=== PATIENT | female | born 1945 | race Caucasian/White ===

== ENCOUNTER 2022-10-07 11:09 | Emergency (ER) | payer MEDICARE, SELFPAY ==
[2022-10-07 11:16] VITALS: BP 160/98; PULSE 102; RESP 18; TEMP 36.4; O2SAT 98; BMI 28.2
--- NOTE | 2022-10-07 11:27 | ED_ITS ---
HPI - Extremity Injury (Upper) General Chief Complaint: Extremity Injury, Upper Stated Complaint: FALL UPPER EXTREMITY INJURY Time Seen by Provider: 10/07/22 11:20 Source: patient Mode of arrival: walk-in Limitations: no limitations History of Present Illness HPI narrative: 77 old female presents with left-sided neck pain for the past 3 days. She states that she fell out of bed and hit the left side of her head on the wall. She is not sure why she fell out of bed. She states that her pain started later in the day and she did go to [facility] today in the [facility] evaluated her out in the waiting room and told her that she needed to come to the ER. She is complaining of left-sided neck and trapezius pain. She has been using lidocaine patches. Denies BLE/BUE swelling, temp or sensation changes. Denies dizziness, headache, vision changes, n/v, SOB or CP Related Data Home Medications Medication Instructions Recorded Confirmed hydrochlorothiazide 25 mg tablet 25 mg PO DAILY 10/07/22 10/07/22 latanoprost 0.005 % eye drops 1 drp ophthalmic (eye) QPM 10/07/22 10/07/22 prednisolone acetate 1 % eye 1 drp ophthalmic (eye) BID 10/07/22 10/07/22 drops,suspension venlafaxine 150 mg 150 mg PO DAILY 10/07/22 10/07/22 capsule,extended release 24 hr venlafaxine 75 mg capsule,extended 75 mg PO DAILY 10/07/22 10/07/22 release 24 hr verapamil 180 mg 24 hr 180 mg PO DAILY 10/07/22 10/07/22 capsule,extended release Previous Rx's Medication Instructions Recorded methocarbamol 750 mg tablet 750 mg PO Q8H PRN strain 5 days 10/07/22 #15 tabs Allergies Allergy/AdvReac Type Severity Reaction Status Date / Time No Known Drug Allergies Allergy Verified 10/07/22 11:16 Review of Systems ROS Status of ROS 10 or more systems reviewed and unremarkable except as noted in history and below Exam Narrative Exam Narrative: General: A&Ox3, no distress, talking in full an complete sentences skin: warm, dry, intact head: normocephalic, atraumatic eyes: EOMI nose: nares patent neck: supple, trachea midline, no vertebral tenderness, tender to left para spinal cervical muscles and left trapezius respiratory: non-labored extremities: FROM x 4, strength +5/5 spine: normal ROM, no step offs neuro: A&Ox3 psych: appropriate mood and affect, cooperative Constitutional Vital Signs, click to edit/add: Last Vital Signs Temp 97.6 F 10/07/22 11:16 Pulse 102 H 10/07/22 11:16 Resp 18 10/07/22 11:16 BP 160/98 H 10/07/22 11:16 Pulse Ox 98 10/07/22 11:16 O2 Del Method Room Air 10/07/22 11:16 Course Vital Signs Vital signs: Vital Signs Temperature 97.6 F 10/07/22 11:16 Pulse Rate 102 H 10/07/22 11:16 Respiratory Rate 18 10/07/22 11:16 Blood Pressure 160/98 H 10/07/22 11:16 Pulse Oximetry 98 10/07/22 11:16 Oxygen Delivery Method Room Air 10/07/22 11:16 Temperature 97.6 F 10/07/22 11:16 Pulse Rate 102 H 10/07/22 11:16 Respiratory Rate 18 10/07/22 11:16 Blood Pressure 160/98 H 10/07/22 11:16 Pulse Oximetry 98 10/07/22 11:16 Oxygen Delivery Method Room Air 10/07/22 11:16 MDM - Extremity Injury (Upper) MDM Narrative Medical decision making narrative: I did offer imaging to the patient, but she states that she does not believe anything is broken in her neck and just wishes to be treated for the pain. She does not have any vertebral tenderness and negative Nexus criteria or Beaver C-spine rule and she will be medicated with Toradol and given a prescription for Robaxin follow-up with family doctor. F/u with PCP. afebrile, not tachycardic, not hypoxic, non toxic appearing and ambulating at baseline and hemodynamically stable to be d/c. answered all questions. pt in agreement with tx. educated when to return to ER. Discharge Plan Discharge Chief Complaint: Extremity Injury, Upper Clinical Impression: Strain of cervical portion of left trapezius muscle Accidental fall from bed Qualifiers: Encounter type: initial encounter Qualified Code(s): W06.XXXA - Fall from bed, initial encounter Patient Disposition: Home, Self-Care Time of Disposition Decision: 11:28 Condition: Good Mode of Transportation: Private Vehicle Prescriptions / Home Meds: New methocarbamol 750 mg tablet 750 mg PO Q8H PRN (Reason: strain) 5 Days Qty: 15 0RF No Action hydrochlorothiazide 25 mg tablet 25 mg PO DAILY latanoprost 0.005 % drops 1 drp OPHTHALMIC (EYE) QPM prednisolone acetate 1 % drops,suspension 1 drp OPHTHALMIC (EYE) BID venlafaxine 150 mg capsule,extended release 24hr 150 mg PO DAILY venlafaxine 75 mg capsule,extended release 24hr 75 mg PO DAILY verapamil 180 mg capsule,ext rel. pellets 24 hr 180 mg PO DAILY Instructions: Cervical Strain (ED) Stand Alone Forms: Portal Instructions Referrals: Shaikh Mcmillan MD [Primary Care Provider] - 1 week
[2022-10-07] MEDS: KETOROLAC TROMETHAMINE 30 MG/ML VIAL 15 MG IM (11:37)
== END 2022-10-07 11:42 | disposition home or self-care (01) ==
PROVIDERS: Emergency Provider Emergency Medicine; PCP Internal Medicine
DX: S16.1XXA Strain of muscle, fascia and tendon at neck level, initial encounter (principal); W06.XXXA Fall from bed, initial encounter; Z79.899 Other long term (current) drug therapy
CPT/HCPCS: 96372; 99284

== ENCOUNTER 2022-10-08 12:06 | Outpatient (OUT) | payer MEDICARE, SELFPAY ==
--- NOTE | 2022-10-08 12:12 | XR_ITS ---
[address] [address] Patient Name: USMAN LING MRN: [id number] date: 1945 Sex: F Assigned Patient Location: [facility] Current Patient Location: [facility] Accession/Order Number: [id number] Exam Date: 10/08/2022 12:18 Report Date: 10/08/2022 13:09 At the request of: SHAIKH CASSANDRA Procedure: XR shoulder LT min 2V EXAM: XR shoulder LT min 2V HISTORY: Left shoulder pain M25.512 COMPARISON: None. TECHNIQUE: 3 views FINDINGS: No acute fracture or dislocation. Mild degenerative changes of acromioclavicular joint. Unremarkable soft tissues. XR/XR shoulder LT min 2V IMPRESSION: Degenerative changes as above. Electronically authenticated by: EDGAR CISNEROS Date: 10/08/2022 13:09
--- NOTE | 2022-10-08 12:12 | XR_ITS ---
[address] [address] Patient Name: USMAN LING MRN: [id number] date: 1945 Sex: F Assigned Patient Location: [facility] Current Patient Location: [facility] Accession/Order Number: [id number] Exam Date: 10/08/2022 12:18 Report Date: 10/08/2022 13:00 At the request of: SHAIKH CASSANDRA Procedure: XR cervical spine 2-3V EXAM: XR cervical spine 2-3V HISTORY: Neck pain M54.2 COMPARISON: None. TECHNIQUE: 2 views Findings/impression: Mild reversal of cervical spine lordosis. Vertebral body heights. Multilevel endplate degenerative changes, anterior spurring, disc disease of C3-C6. No acute fracture. Unremarkable soft tissues. Electronically authenticated by: EDGAR CISNEROS Date: 10/08/2022 13:00
== END 2022-10-08 12:07 | disposition home or self-care (01) ==
PROVIDERS: PCP Internal Medicine; Visit Provider Internal Medicine
DX: M54.2 Cervicalgia (principal); M25.512 Pain in left shoulder
CPT/HCPCS: 72040; 73030

== ENCOUNTER 2022-11-08 14:21 | Outpatient (OUT) | payer MEDICARE, SELFPAY | END 2022-11-08 14:22 | disposition home or self-care (01) | LOC: PST 14:21 | PROVIDERS: PCP Internal Medicine; Visit Provider Urology | DX: Z01.818 Encounter for other preprocedural examination (principal); R31.9 Hematuria, unspecified; N35.92 Unspecified urethral stricture, female; I10 Essential (primary) hypertension; F32.A Depression, unspecified; F41.9 Anxiety disorder, unspecified ==

== ENCOUNTER 2022-11-11 07:49 | Day surgery (SDC) | payer MEDICARE, SELFPAY ==
[2022-11-11 08:34] VITALS: BP 137/74; PULSE 84; RESP 18; O2SAT 98
[2022-11-11 08:37] VITALS: BP 140/73; PULSE 78; RESP 18; O2SAT 99
--- NOTE | 2022-11-11 08:54 | P.URON_ITS ---
Urology Surgery Operative Note Operative Note Procedure Date: 11/11/22 Time Out Performed: yes Pre-op Diagnosis: urethral stenosis; recurrent urinary infections Post-op Diagnosis: same as pre-op Procedures performed: #1. Urethral dilation with Laura sounds to [address]. #2. Cystoscopy. Anesthesia: local Primary Surgeon: Cosme Iqbal Complications: non- Estimated blood loss (mL): 0 Findings: #1. Urethral stenosis. #2. No bladder tumors. #3. High-grade trabeculation with small diverticuli formation. #4. Mild stress incontinence. #5. Mild to moderate atrophic vaginitis. #6. Mild pelvic prolapse in the form of grade 1 cystocele Indications for Procedures: this lady has microhematuria and recurrent urinary infections and recurrent urethral stenosis. She now presents for cystoscopy and urethral dilation. She has signed an informed consent for these procedures after risks were explained. Detailed description of Procedure: the patient was kept on the rlolo bed and brought into the endoscopy suite. She was in the supine position. Her legs were frog legged. Her genitalia were sterilely prepped and draped in the usual fashion. 2 perceent lidocaine was passed per urethra. Time out was done by all parties in the room. We all agreed upon the patient's identification and the planned pprocedures for the patient. I then passed a flexible cystoscope per urethra and into the blladder. The scope would barely pass. Careful panendoscopy in the bladder showed no evidence of any tumors or stones. She had high-grade trabeculation and open diverticuli formation. The scope was then removed. With Valsalva maneuver she had mild stress incontinence. She had a grade 1 cystocele. She had mild to moderate atrophic vaginitis. At this time I then used [place] sounds and dilatedd her urethra from [address] up to [address].. She was then discharged to home. The plan will be that we will get her on a maintenance schedule of urethral dilations every 6-8 months for now.
== END 2022-11-11 08:45 | disposition home or self-care (01) ==
PROVIDERS: PCP Internal Medicine; Visit Provider Urology
PROC: (CPT 52281; principal; 2022-11-11 08:10)
DX: N35.12 Postinfective urethral stricture, not elsewhere classified, female (principal); N32.89 Other specified disorders of bladder; N39.3 Stress incontinence (female) (male); N95.2 Postmenopausal atrophic vaginitis; N81.10 Cystocele, unspecified; Z87.440 Personal history of urinary (tract) infections; I10 Essential (primary) hypertension; F32.A Depression, unspecified; Z90.710 Acquired absence of both cervix and uterus; Z79.899 Other long term (current) drug therapy; R31.29 Other microscopic hematuria; R39.15 Urgency of urination
CPT/HCPCS: 52281

== ENCOUNTER 2023-05-29 10:24 | Outpatient (OUT) | payer MEDICARE, SELFPAY ==
--- NOTE | 2023-05-29 10:31 | MM_ITS ---
Patient Name: USMAN LING MR#: [id number] : 1945 Exam Date: 05/29/2023 Ordering Doctor: DR. CHRISTI ZARCO . RADIOLOGY REPORT PROCEDURE: MM TOMOSYNTHESIS SCREENING BI COMPARISON: MG MAMM SCREEN 3D CELENA CAD, 05/27/2022. MG MAMM SCREEN 3D CELENA CAD, 05/15/2021. MG MAMM SCREEN CELENA W CAD, 01/01/2018. MG MAMM CELENA SCRN W CAD DIG, 03/15/2014. INDICATIONS: screening Calculator Name NCI Breast Cancer Risk Assessment Tool 5 Year Breast Cancer Risk 1.60% Lifetime Breast Cancer Risk 3.00% Personal Breast Cancer No Personal Ovarian Cancer No Treatments None Family Cancers Sister with lung cancer at age ~80; Sister with lung cancer at age ~80; Father with colon cancer at age ~78. LOCATION: [facility] BREAST COMPOSITION: Heterogeneously dense,which may obscure small masses. FINDINGS: DIAGNOSTIC CATEGORY 2--BENIGN FINDING: RIGHT BREAST: No significant suspicious finding. Scattered benign-appearing calcifications are present. No significant change has occurred. LEFT BREAST: No significant suspicious finding. Scattered benign-appearing calcifications are present. No significant change has occurred. RECOMMENDATIONS: ROUTINE MAMMOGRAM AND CLINICAL EVALUATION IN 12 MONTHS. PLEASE NOTE: A NORMAL MAMMOGRAM DOES NOT EXCLUDE THE POSSIBILITY OF BREAST CANCER. A CLINICALLY SUSPICIOUS PALPABLE LUMP SHOULD BE BIOPSIED. Dictated by: Bill Polk M.D. on 05/30/2023 at 13:34 Approved by: Bill Polk M.D. on 05/30/2023 at 13:42
== END 2023-05-29 10:25 | disposition home or self-care (01) ==
LOC: MAMMO 10:24
PROVIDERS: PCP Family Medicine; Visit Provider Family Medicine
DX: Z12.31 Encounter for screening mammogram for malignant neoplasm of breast (principal); Z80.0 Family history of malignant neoplasm of digestive organs; Z80.1 Family history of malignant neoplasm of trachea, bronchus and lung
CPT/HCPCS: 77063; 77067

== ENCOUNTER 2024-03-22 10:33 | Outpatient (OUT) | payer MEDICARE, SELFPAY ==
--- NOTE | 2024-03-22 | XR_ITS ---
The [address] [address] Patient Name: USMAN LING MRN: [id number] date: 1945 Sex: F Assigned Patient Location: Current Patient Location: Accession/Order Number: [id number] Exam Date: 03/22/2024 10:35 Report Date: 03/24/2024 08:34 At the request of: ALEJANDRA LOWRY Procedure: XR hip RT 2V w/ pelvis EXAM: AP of the pelvis and right hip HISTORY: . RIGHT HIP AND PELVIS PAIN . COMPARISON: None. TECHNIQUE: 3 views FINDINGS: Bony pelvis is intact. No fracture or bony destructive process is noted. Hypertrophic spurs are noted involving the femoral head and the acetabulum. No fracture or dislocation is noted. Incidentally noted is a mild to moderate amount of stool in the visualized colon. XR/XR hip RT 2V w/ pelvis IMPRESSION: 1. Negative AP of the pelvis. 2. 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 3. Mild to moderate amount of stool in the visualized colon. Electronically authenticated by: AARTI BERGERON Date: 03/24/2024 08:34
== END 2024-03-22 10:34 | disposition home or self-care (01) ==
LOC: EC 10:34
PROVIDERS: PCP Family Medicine; Visit Provider Orthopaedic Surgery
DX: M25.551 Pain in right hip (principal)
CPT/HCPCS: 73502

== ENCOUNTER 2024-06-28 09:23 | Outpatient (OUT) | payer MEDICARE, SELFPAY ==
--- NOTE | 2024-06-28 09:25 | MM_ITS ---
Patient Name: USMAN LING MR#: [id number] : 1945 Exam Date: 06/28/2024 Ordering Doctor: DR. CHRISTI ZARCO . RADIOLOGY REPORT PROCEDURE: MM TOMOSYNTHESIS SCREENING BI COMPARISON: MM TOMOSYNTHESIS SCREENING BI, 05/29/2023. MG MAMM SCREEN 3D CELENA CAD, 05/27/2022. MG MAMM SCREEN 3D CELENA CAD, 05/15/2021. MG MAMM CELENA SCRN W CAD DIG, 03/15/2014. INDICATIONS: Screening Calculator Name NCI Breast Cancer Risk Assessment Tool 5 Year Breast Cancer Risk 1.50% Lifetime Breast Cancer Risk 2.80% Personal Breast Cancer No Personal Ovarian Cancer No Treatments None Family Cancers Sister with lung cancer at age ~80; Sister with lung cancer at age ~80; Father with colon cancer at age ~78. LOCATION: [facility] BREAST COMPOSITION: There are scattered areas of fibroglandular density. FINDINGS: DIAGNOSTIC CATEGORY 1--NEGATIVE. RIGHT BREAST: No significant suspicious finding. LEFT BREAST: No significant suspicious finding. RECOMMENDATIONS: ROUTINE MAMMOGRAM AND CLINICAL EVALUATION IN 12 MONTHS. PLEASE NOTE: A NORMAL MAMMOGRAM DOES NOT EXCLUDE THE POSSIBILITY OF BREAST CANCER. A CLINICALLY SUSPICIOUS PALPABLE LUMP SHOULD BE BIOPSIED. Dictated by: Segundo Kapadia DO on 06/28/2024 at 15:49 Approved by: Segundo Kapadia DO on 06/28/2024 at 15:50
--- OUTSIDE RECORDS SUMMARY | 2024-06-28 09:32 | XMS_ITS | CCD ---
Author Organization [facility] Care Team Providers Care Management Rep Name Role Phone SHAIKH MCMILLAN Primary Care Physician [phone] NO FAMILY, PHYSICIAN Primary Care Provider ALEX Bach Attending Provider Raiza Huitorn Attending Unavailable Raiza Huitron Admitting Unavailable NO FAMILY, PHYSICIAN Primary Care Unavailable FAWWAD, BECKMAN H Admitting Unavailable QUINTIN GLORIA Consulting Unavailable FAWWAD, BECKMAN H Attending Unavailable FAWWAD, BECKMAN H Primary Care Unavailable FAWWAD, BECKMAN H Consulting Unavailable FAWWAD, BECKMAN H Admitting Unavailable FAWWAD, BECKMAN H Attending Unavailable ZIEBRAPHAEL, DR BILL Paul Consulting Unavailable FAWWAD, BECKMAN H Primary Care Unavailable FAWWAD, BECKMAN H Consulting Unavailable ZIEBER, DR BILL Paul Consulting Unavailable FAWWAD, BECKMAN H Admitting Unavailable FAWWAD, BECKMAN H Attending Unavailable FAWWAD, BECKMAN H Primary Care Unavailable FAWWAD, BECKMAN H Consulting Unavailable REQUEST, DR NONE LISTED Consulting Unavaila ble REQUEST, NONE LISTED Admitting Unavaila ble REQUEST, NONE LISTED Attending Unavaila ble FAWWAD, BECKMAN H Primary Care Unavailable FAWWAD, BECKMAN H Attending Unavailable FAWWAD, BECKMAN H Consulting Unavailable FAWWAD, BECKMAN H Primary Care Unavailable FAWWAD, BECKMAN H Admitting Unavailable FAWWAD, BECKMAN H Admitting Unavailable FAWWAD, BECKMAN H Primary Care Unavailable FAWWAD, BECKMAN H Attending Unavailable FAWWAD, BECKMAN H Consulting Unavailable Ross, Shailesh E. Primary Care Physician [phone] Shailesh Fajardo MD Primary Care Provider [phone] VIANEY VELASQUEZ Attending Unavailable AYDE ESPINAL Attending Unavailable AYDE ESPINAL Referring Unavailable AYDE ESPINAL Attending Unavailable EVA, VIANEY Robles Attending Unavailable EVA, VIANEY Robles Attending Unavailable EVA, VIANEY Robles Attending Unavailable EVA, VIANEY Robles Attending Unavailable EVA, VIANEY Robles Referring Unavailable EVA, VIANEY Robles Attending Unavailable EVA, VIANEY Robles Referring Unavailable EVA, VIANEY Robles Attending Unavailable EVA, VIANEY Robles Attending Unavailable MD Shailesh Fajardo Attending Unavailable MD Shailesh Fajardo Attending Unavailable MD Shailesh Fajardo Attending Unavailable MD Shailesh Fajardo Attending Unavailable MD Shailesh Fajardo Attending Unavailable MD Shailesh Fajardo Admitting Unavailable Shailesh Fajardo Attending Unavailable Shailesh Fajardo Attending Unavailable Shailesh Fajardo Attending Unavailable Cosme COLORADO Attending Unavailable Shailesh Fajardo Admitting Unavailable Shailesh Fajardo Attending Unavailable Shailesh Fajardo Attending Unavailable Shailesh Fajardo Attending Unavailable Shailesh Fajardo Attending Unavailable Shailesh Fajardo Attending Unavailable Allergies Allergy Classification Reported Allergen(s) Allergy Type Date of Onset Reaction(s) Facility (17 sources) Latex; Translations: [latex] Allergy to substance 3 Eruption of skin (disorder), Unknown [facility] (7 sources) Sulfonamides (Antibiotic); Translations: [sulfa drugs] Drug allergy Hyper [facility] (1 source) Sulfonamides (Antibiotic) Drug allergy (disorder) 3 [facility] (9 sources) Sulfonamides (Antibiotic) Drug Allergy 3 Unknown [facility] Medications Current Medications Medication Drug Class(es) Dates Sig (Normalized) Sig (Original) acyclovir 200 mg oral capsule (1 source) Herpesvirus Nucleoside Analog DNA Polymerase Inhibitor, Herpes Simplex Virus Nucleoside Analog DNA Polymerase Inhibitor, Herpes Zoster Virus Nucleoside Analog DNA Polymerase Inhibitor Start: 06-02-2023 End: 06-09-2023 take 1 capsule by mouth once daily acyclovir 200 mg Cap 200 mg = 1 cap(s), Oral, 5x/Day, X 7 day(s), # 35 cap(s), Refills(s) 0, Pharmacy: [facility], 168, cm, 06/02/23 9:49:00 EDT, Height/Length Dosing, 68, kg, 06/02/23 9:49:00 EDT, Weight Dosing Start Date: 06/02/23 Stop Date: 06/09/23 Status: Ordered ALPRAZolam 0.5 mg oral tablet (4 sources) Benzodiazepine Start: 09-09-2023 take 1 tablet by mouth three times daily as needed for anxiety Xanax 0.5 mg Tab 0.5 mg = 1 tab(s), Oral, TID, PRN for anxiety, # 60 tab(s), Refills(s) 0, Pharmacy: [facility], 168, cm, 09/09/23 10:08:00 EDT, Height/Length Dosing, 67.7, kg, 09/09/23 10:08:00 EDT, Weight Dosing Start Date: 09/09/23 Status: Ordered End: 10-16-2023 ALPRAZolam (Xanax) 0.25 MG t ablet 1 tablet Orally prn 10/16/2023 Discontinued (Discontinued by another clinician) Baclofen (1 source) gamma-Aminobutyric Acid-ergic Agonist Start: 10-16-2022 baclofen 10 mg tablet baclofen 10 mg tablet Start Date: 10/16/22 Status: Ordered Biotin (2 sources) Start: 10-16-2022 biotin Oral, Daily, Refills(s) 0 Start Date: 10/16/22 Status: Ordered Fiber Tab (2 sources) Start: 10-16-2022 take 1 tablet by mouth once daily Fiber Tabs mg, Oral, Daily, Refills(s) 0 Start Date: 10/16/22 Status: Ordered Start: 10-16-2022 take 1 tablet by teodora th four times daily Fiber Tabs mg, Oral, QID, Refills(s) 0 Start Date: 10/16/22 Status: Ordered estradiol 0.1 mg/ml vaginal cream (3 sources) Estrogen Start: 10-16-2022 estradiol 0.1 mg/g Vag Crm 1 gm, Vaginal, qWeek, 42.5 gm, Refill(s) 6, [facility]), 168, cm, 10/16/22 14:48:00 EDT, Height/Length Dosing, 68.2, kg, 10/16/22 14:48:00 EDT, Weight Dosing Start Date: 10/16/22 Status: Ordered estradiol 0.1 mg/g vaginal cream (2 sources) Start: 10-13-2020 estradiol 0.1 mg/g vaginal cream 1 gram, Vaginal, MonWedFri, # 42.5 gram, Refills(s) 6, Pharmacy: [facility], 168, cm, 10/13/20 9:23:00 EDT, Height/Length Dosing, 70, kg, 10/13/20 9:23:00 EDT, Weight Dosing Start Date: 10/13/20 Status: Ordered Fiber (8 sources) Start: 10-16-2022 FIBER PO Take by mouth 10/16/2022 Active gabapentin 300 mg oral capsule (9 sources) Anti-epileptic Agent Start: 02-16-2024 take 1 capsule by mouth twice daily gabapentin 300 mg Cap 300 mg = 1 cap(s), Oral, BID, # 180 cap(s), Refills(s) 0 Start Date: 02/16/24 Status: Ordered Start: 10-16-2023 End: 10-23-2023 take 1 capsule by mouth in the morning gabapentin (Neurontin) 300 MG capsule Indications: Sciatica of left side Take 1 capsule (300 mg) by mouth in the morning and 1 capsule (300 mg) before bedtime. Do all this for 7 days. 14 capsule 10/16/2023 Active hydroCHLOROthiazide 25 mg oral tablet (8 sources) Thiazide Diuretic Start: 06-29-2021 End: 10-16-2023 take 1 tablet by mouth once daily hydrochlorothiazide 25 mg Tab 25 mg = 1 tab(s), Oral, Daily, # 90 tab(s), Refills(s) 1, Pharmacy: [facility], 162, cm, 05/05/23 11:20:00 EDT, Height/Length Dosing, 68.8, kg, 05/05/23 11:20:00 EDT, Weight Dosing Start Date: 3/18/24 Status: Ordered Ibuprofen (2 sources) Nonsteroidal Anti-inflammatory Drug Start: 02-14-2023 ibuprofen 200 mg, BID, PRN as needed for pain, Refills(s) 0 Start Date: 02/14/23 Status: Ordered latanoprost 0.05 mg/ml ophthalmic solution (10 sources) Prostaglandin Analog Start: 08-04-2023 take 1 drop(s) into the eye(s) at bedtime latanoprost (Xalatan) 0.005 % ophthalmic solution instill 1 DROP IN BOTH EYES AT BEDTIME 08/04/2023 Active Start: 11-12-2022 latanoprost op hthalmic See Instructions, Refill(s) 0, use as directed Start Date: 11/12/22 Status: Ordered losartan potassium 50 mg oral tablet (9 sources) Angiotensin 2 Receptor Jayla losartan (Cozaar) 50 MG tablet 1 (one) time each day at the same time. Active methylPREDNISolone 4 mg tab dosepak (1 source) Start: 3 methylPREDNISolone 4 mg tab dosepak Refills(s) 0 Start Date: 10/16/22 Status: Ordered nabumetone 500 mg oral tablet (8 sources) Nonsteroidal Anti-inflammatory Drug Start: 4 nabumetone 500 mg Tab 500 mg = 1 tab(s), BID, Refills(s) 0 Start Date: 02/16/24 Status: Ordered Start: 10-16-2023 End: 11-29-2023 take 1 tablet by mouth in the morning nabumetone (Relafen) 500 MG tablet Indications: Primary osteoarthritis of left hip Take 1 tablet (500 mg) by mouth in the morning and 1 tablet (500 mg) before bedtime. 60 tablet 10/30/2023 11/29/2023 Active oxybutynin chloride 5 mg oral tablet (9 sources) Cholinergic Muscarinic Antagonist oxybutynin (Ditropan) 5 MG tablet every 12 (twelve) hours. Active rOPINIRole 1 mg oral tablet (10 sources) Nonergot Dopamine Agonist Start: 4 take 1 tablet by mouth once daily at bedtime ropinirole 1 mg Tab See Instructions, TAKE 1 TABLET BY MOUTH DAILY 1 TO 3 HOURS BEFORE BEDTIME, # 90 tab(s), Refills(s) 3, Pharmacy: [facility], 168, cm, 09/09/23 10:08:00 EDT, Height/Length Dosing, 67.7, kg, 09/09/23 10:08:00 EDT, Weight Dosing Start Date: 11/17/23 Status: Ordered Start: 05-05-2023 take 1 tablet by [facility] once daily at bedtime ropinirole 0.25 mg Tab 0.25 mg = 1 tab(s), Oral, Daily, 1 to 3 hours before bedtime, # 90 tab(s), Refills(s) 0, Pharmacy: [facility], 162, cm, 05/05/23 11:20:00 EDT, Height/Length Dosing, 68.8, kg, 05/05/23 11:20:00 EDT, Weight Dosing Start Date: 05/05/23 Status: Ordered 24 hr venlafaxine 150 mg extended release oral capsule (20 sources) Serotonin and Norepinephrine Reuptake Inhibitor Start: 10-21-2023 take 1 capsule by mouth once daily venlafaxine 150 mg Cap-ER 150 mg = 1 cap(s), Oral, Daily, # 90 cap(s), Refills(s) 3, Pharmacy: [facility], 168, cm, 09/09/23 10:08:00 EDT, Height/Length Dosing, 67.7, kg, 09/09/23 10:08:00 EDT, Weight Dosing Start Date: 10/21/23 Status: Ordered Start: 10-21-2023 take 1 capsule by [facility] once daily venlafaxine 75 mg Cap-ER 75 mg = 1 cap(s), Oral, Daily, # 90 cap(s), Refills(s) 3, Pharmacy: [facility], 168, cm, 09/09/23 10:08:00 EDT, Height/Length Dosing, 67.7, kg, 09/09/23 10:08:00 EDT, Weight Dosing Start Date: 10/21/23 Status: Ordered Start: 08-05-2023 venlafaxine XR (Effexor XR) 150 MG 24 hr capsule 08/05/2023 Active Start: 08-05-2023 venlafaxine XR (Effexor XR) 75 MG 24 hr capsule 08/05/2023 Active Start: 02-18-2023 take 1 capsule by [facility] once daily venlafaxine 150 mg Cap-ER 150 mg = 1 cap(s), Oral, Daily, # 90 cap(s), Refills(s) 0, Pharmacy: [facility], 162, cm, 02/14/23 11:44:00 EST, Height/Length Dosing, 67.3, kg, 02/14/23 11:44:00 EST, Weight Dosing Start Date: 02/18/23 Status: Ordered Start: 02-18-2023 take 1 capsule by [facility] once daily venlafaxine 75 mg Cap-ER 75 mg = 1 cap(s), Oral, Daily, # 90 cap(s), Refills(s) 0, Pharmacy: [facility], 162, cm, 02/14/23 11:44:00 EST, Height/Length Dosing, 67.3, kg, 02/14/23 11:44:00 EST, Weight Dosing Start Date: 02/18/23 Status: Ordered Start: 10-15-2019 take 1 mg by mouth once daily venlafaxine 75 mg Cap-ER mg cap(s), Oral, Daily, Refills(s) 0 Start Date: 10/15/19 Status: Ordered Start: 10-15-2019 take 1 mg by mouth once daily venlafaxine 75 mg Cap-ER mg cap(s), Oral, Daily, Refills(s) 0 Start Date: 10/15/19 Status: Ordered End: 10-16-2023 venlafaxine XR (Effexor XR) 150 MG 24 hr tablet 1 (one) time each day at the same time. 10/16/2023 Discontinued (Discontinued by another clinician) 24 hr verapamil hydrochloride 180 mg extended release oral capsule (13 sources) Calcium Channel Jayla Start: 05-27-2023 take 1 capsule by mouth once daily verapamil 180 mg Cap-ER See Instructions, TAKE 1 CAPSULE BY MOUTH DAILY, # 90 cap(s), Refills(s) 3, Pharmacy: [facility], 168, cm, 09/09/23 10:08:00 EDT, Height/Length Dosing, 67.7, kg, 09/09/23 10:08:00 EDT, Weight Dosing Start Date: 10/21/23 Status: Ordered Start: 06-29-2021 take 1 mg by mouth once daily verapamil 180 mg Cap-ER mg cap(s), Oral, Daily, Refills(s) 0 Start Date: 06/29/21 Status: Ordered Start: 06-29-2021 take 1 mg by mouth once daily verapamil 180 mg Cap-ER mg cap(s), Oral, Daily, Refills(s) 0 Start Date: 06/29/21 Status: Ordered Completed/Discontinued Medications Medication Drug Class(es) Dates Sig (Normalized) Sig (Original) 1 ml methylPREDNISolone acetate 40 mg/ml injection (7 sources) Corticosteroid Start: 4 End: methylPREDNISolone acetate (DEPO-Medrol) injection 40 mg Start: 12-18-2023 End: 12-18-2023 40 mg, Intra-articular, Once PRN Procedure, Starting on Laina 12/18/23 at 1215, For 1 dose Start: 01-02-2023 End: 10-16-2023 methylPREDNISolone (Medrol D ospak) 4 MG tablets Indications: Lumbar radiculopathy Follow schedule on package instructions 21 tablet 01/02/2023 10/16/2023 Discontinued (Discontinued by another clinician) Start: 01-02-2023 methylPREDNISo lone (Medrol Dospak) 4 MG tablets Indications: Lumbar radiculopathy Follow schedule on package instructions 21 tablet 01/02/2023 Active Problems Active Problems Problem Classification Problem Date Documented Date Episodic/Chronic Anxiety disorders (1 source) Panic attack 09-09-2023 Chronic Conditions associated with dizziness or vertigo (2 sources) Dizziness 05-05-2023 Episodic Essential hypertension (9 sources) Hypertensive disorder; Translations: [Essential (primary) hypertension] Onset: 05-27-2022 10-15-2019 Chronic Genitourinary symptoms and ill-defined conditions (5 sources) Urge incontinence of urine 10-15-2019 Chronic Genitourinary symptoms and ill-defined conditions (20 sources) Urgent desire to urinate; Translations: [Urgency of urination] Onset: 06-29-2021 Episodic Headache; including migraine (5 sources) Frequent headache 10-15-2019 Episodic Mood disorders (5 sources) Depressive disorder 10-15-2019 Chronic Osteoarthritis (8 sources) Arthritis of knee; Translations: [Unilateral primary osteoarthritis, unspecified knee] 12-18-2023 Chronic Other hereditary and degenerative nervous system conditions (2 sources) Restless legs 05-05-2023 Chronic Other lower respiratory disease (5 sources) Other forms of dyspnea; Translations: [OTHER FORMS OF DYSPNEA] Onset: 02-16-2022 Episodic Other non-traumatic joint disorders (2 sources) Pain in right knee; Translations: [Pain in joint, lower leg] 12-18-2023 Episodic Other non-traumatic joint disorders (2 sources) Pain in left knee; Translations: [Pain in joint, lower leg] 10-30-2023 Episodic Other nutritional; endocrine; and metabolic disorders (2 sources) Overweight in adulthood with body mass index of 25 or more but less than 30 04-21-2023 Episodic Other screening for suspected conditions (not mental disorders or infectious disease) (1 source) Encounter for screening mammogram for malignant neoplasm of breast; Translations: [ENC SCR MAMMO MALIG NEOPLASM BREAST] Onset: 06-02-2022 Episodic Residual codes; unclassified (1 source) Family history of malignant neoplasm of trachea, bronchus and lung; Translations: [FAM HX MALIG NEOPLSM TRACH BRON LNG] Onset: 06-02-2022 Episodic Residual codes; unclassified (1 source) Family history of malignant neoplasm of digestive organs; Translations: [FAM HX MALIG NEOPLASM DIGESTIV ORGN] Onset: 06-02-2022 Episodic Residual codes; unclassified (2 sources) Flushing 11-12-2022 Episodic Residual codes; unclassified (2 sources) Insomnia 11-12-2022 Episodic Spondylosis; intervertebral disc disorders; other back problems (2 sources) Prolapsed lumbar intervertebral disc; Translations: [Other intervertebral disc displacement, lumbar region] 10-30-2023 Chronic Spondylosis; intervertebral disc disorders; other back problems (5 sources) Disorder of left sciatic nerve; Translations: [Sciatica, left side] 10-30-2023 Episodic Unclassified (2 sources) Seborrheic keratosis 11-12-2022 Unclassified (1 source) Body mass index 20-24 - normal 02-16-2024 Urinary tract infections (10 sources) Postinfective urethral stricture of female; Translations: [Postinfective urethral stricture, not elsewhere classified, female] Onset: 06-29-2021 Episodic Viral infection (2 sources) Disease caused by 2019-nCoV 02-08-2023 Past or Other Problems Problem Classification Problem Date Documented Da te Episodic/Chronic Other connective tissue disease (4 sources) Other specified soft tissue disorders; Translations: [OTHER SPEC SOFT TISSUE DISORDERS] Onset: 02-13-2022 Episodic Other non-traumatic joint disorders (2 sources) Hip pain; Translations: [Pain in left hip] 10-16-2023 Episodic Other skin disorders (1 source) Localized swelling, mass and lump, left lower limb; Translations: [LOC SWELL MASS LUMP LT LOWER LIMB] Onset: 02-16-2022 Episodic Results Test Name Value Interpretation Reference Range Facility Ambulatory Visit Summaryon 0 05-31-2024 Ambulatory Visit Summary Ambulatory Visit Summary LISA LING :1945 Visit Date:05/31/2024 Ambulatory Visit Instructions Your Diagnosis Panic attacks Hypertension Depression Impaired ambulation Sebaceous cyst Your Care Team Attending Physician - Shailesh Fajardo MD Primary Care Physician - Shailesh Fajardo MD This Is Your Medications List alprazolam (Xanax 0.5 mg Tab) estradiol topical (estradiol 0.1 mg/g Vag Crm) ibuprofen latanoprost ophthalmic nabumetone (nabumetone 500 mg Tab) ropinirole (ropinirole 1 mg Tab) venlafaxine (venlafaxine 150 mg Cap-ER) venlafaxine (venlafaxine 75 mg Cap-ER) verapamil (verapamil 180 mg Cap-ER) Procedures Performed Dilation of urethra (06/02/2023), Cystourethroscopy with dilation of urethral stricture (11/11/2022), Cystourethroscopy with dilation of urethral stricture (10/26/2019), Appendectomy, Colonoscopy, Hysterectomy, Tonsillectomy. Discharge Vitals Temperature (Tympanic) 36.8 ???C Heart Rate (Peripheral) 76 Respiratory Rate 18 Blood Pressure 134/82 Height 168 cm Height 66 in Weight 69.3 kg Weight 152.78 lb BMI 24.55 What to do next Scheduled Follow-Up Appointments Friday 9:30 AM EDT With: Cosme COLORADO MD Where: [facility] [address] [address]- Friday 1:40 PM EDT With: Shailesh Fajardo MD E. Where: [address] [address]- Friday 11:00 AM EST With: Where: [address] [address]- Medications What How Much When Instructions Unchanged alprazolam (Xanax 0.5 mg Tab) 1 Tablets By Mouth 3 times a day as needed for for anxiety Unchanged estradiol topical (estradiol 0.1 mg/ g Vag Crm) 1 Gram Vaginal Every week Unchanged ibuprofen 200 Milligram 2 times a day as needed for as needed for pain Unchanged latanoprost ophthalmic See instructions use as directed Unchanged nabumetone (nabumetone 500 mg Tab) 1 Tablets 2 times a day Unchanged ropinirole (ropinirole 1 mg Tab) See instructions TAKE 1 TABLET BY MOUTH DAILY 1 TO 3 HOURS BEFORE BEDTIME Unchanged venlafaxine (venlafaxine 150 mg Cap-ER) 1 Capsules By Mouth Every day Unchanged venlafaxine (venlafaxine 75 mg Cap-ER) 1 Capsules By Mouth Every day Unchanged verapamil (verapamil 180 mg Cap-ER) See instructions TAKE 1 CAPSULE BY MOUTH DAILY Allergies Latex (Itching, Rash) sulfa drugs (Hyper) Problems Ongoing - Any problem that you are currently receiving treatment for. Bereavement COVID-19 Depression Dizziness Frequent headaches History of urethral stricture Hot flashes Hypertension Insomnia Knee pain, right Microscopic hematuria Nonsmoker Panic attacks Postinfective urethral stricture in female Restless leg Sciatic pain SK (seborrheic keratosis) Patient Survey You may receive a survey via text or e-mail asking about your office visit. Please share your experience with us by completing your survey. We appreciate your feedback and thank you for choosing us for your care. Normal [facility] Family Medicine Office/Clini c Noteon 05-31-2024 Family Medicine Office/Clinic Note Family Medicine Office/Clinic Note Chief Complaint 2m follow up The patient expresses concerns regarding current medication management and ear irritation. HPI Staff 2m follow up Follow up for Mental Status: Medication adherence- Yes, takes medication as prescribed Medication refill needed: _ Suicidal thoughts-Not at this time Most recent ADRIANNE: 13 Most recent PHQ: 11 Does need refill of verapamil Feels like anxiety med needs changed. States she has been on it too long, feels like the efficacy is wearing off. Ears have been bothering her. Where they are pierced. History of Present Illness The patient is a 78-year-old female presenting with concerns regarding her current medication management and ear irritation. She has been diagnosed with Major Depressive Disorder and Generalized Anxiety Disorder, currently on the maximum dosage of venlafaxine. Concerns regarding the potential ineffectiveness and associated dangers of adjusting the medication have been expressed, along with the prospect of seeking specialist input for medication management. The patient also presented with a complaint of ear irritation, possibly due to scar tissue or a cyst, with previous instances of redness and minor drainage but without active infection noted during this visit. Furthermore, the patient has experienced intermittent difficulties with ambulation and has requested a renewal of the prescription for a handicap sticker, anticipating need during an upcoming vacation trip. - Emphasized maintenance of clean earrings with regular peroxide application. - Addressed mobility concerns, particularly prior to planned increased ambulation, with provision of handicap permit. - Encouraged contact if ear irritation progresses or if infection symptoms develop. Review of Systems PHQ Score Initial Depression Screen Score: 2 SCORE Physical Exam Vitals & Measurements T: 36.8 ???C(Tympanic) HR: 76(Peripheral) RR: 18 BP: 134/82 SpO2: 99% HT: 168 cm HT: 66 in WT: 69.3 kg WT: 152.78 lb BMI: 24.55 General: alert, no acute distress ENMT: oral mucosa moist, slight redness in the ear, possible cyst or scar tissue noted Cardiovascular: Regular rate and rhythm, normal peripheral perfusion Respiratory: Lungs clear to auscultation, respirations non labored Extremities: no deformity, no trauma Neurological: oriented x 4, level of consciousness appropriate for age, CN II-XII intact, motor strength equal & normal bilaterally, speech normal Abdomen: Soft, Non-tender, Non-distended, + Bowel sounds Assessment/Plan 1. Panic attacks (F41.0: Panic disorder [episodic paroxysmal anxiety]) Plan referral to psychiatric cns to oversee integrated management with depression treatment. 2. Hypertension (I10: Essential (primary) hypertension) Well controlled at this time. No issues. Stable on meds. 3. Depression (F32.A: Depression, unspecified) Evaluate medication effectiveness and consider referral to psychiatric cns for expert management due to current treatment limitations. 4. Impaired ambulation (R26.2: Difficulty in walking, not elsewhere classified) Issuance of handicap parking permit to ensure adequate mobility support during upcoming travel activities. 5. Sebaceous cyst (L72.3: Sebaceous cyst) Regular monitoring advised with potential for drainage procedure if required. A 78-year-old female with Major Depressive Disorder and Generalized Anxiety Disorder presents concerns related to current medication management and ear irritation. The patient is on maximal venlafaxine dosage, with current concerns regarding medication adjustments due to potential symptom exacerbation. Referral to a psychiatric cns for medication management is recommended. Examination revealed a suspicious ear lump consistent with potential cyst formation but with no infection signs currently noted. Patient assistance for ambulation-related issues is also considered with issuance of a handicap permit for enhanced mobility, especially on an anticipated vacation. I explained concerns regarding the current management of the patient???s Major Depressive Disorder and Generalized Anxiety Disorder due to the effectiveness limitation and potential risk of venlafaxine adjustments. It was agreed that consulting a psychiatric nurse practitioner, Lexie Leslie specifically, would provide expert direction in this multi-faceted scenario, supporting more customized pharmacotherapy. Ear examination indicated minor irritation, with scar tissue evident yet non-infective at present. Continued monitoring is required, with readiness to address complications. Regarding the mobility challenges, I acknowledged the patient's request for a handicap permit to facilitate travel, particularly considering the potential increase in physical activity during a planned vacation. All recommendations were articulated with potential risks and expectations, ensuring the patient is informed and equipped for her health management. Follow-up No qualif (more content not included)... Normal [facility] Comment on above: Result Comment: Elec tronically Signed By: Shailesh Fajardo MD\.br\Date and Time Signed: 05/31/24 10:44 EDT Pre-Visit Planningon 025 Pre-Visit Planning Pre-Visit Planning From: Lauren Spencer To: Shailesh Fajardo MD; Sent: 05/31/2024 08:20:17 EDT Subject: Pre-Visit Planning Due Date/Time: 05/31/2024 08:20:00 EDT Caller Name: LISA LING; Caller Number: Eliseo , M Fl Dr. Fajardo. During a pre-visit planning chart review, I noted the following documentation in the medical record: Current Problem List: Depression (Depressive disorder). Current Medication List: venlafaxine. PHQ-9 Score: =8 on 04/06/2024 and =18 on 02/23/2024. Based on your medical judgment, can you please clarify which, if any, of the following conditions are present? I can update the Chronic Problem List with your response if you would like. Major Depressive Disorder, Single Episode ??? Major depressive disorder, single episode, mild ??? Major depressive disorder, single episode, moderate ??? Major depressive disorder, single episode, severe without mention of psychotic behavior ??? Major depressive disorder, single episode, severe specified as with psychotic behavior ??? Major depressive disorder, single episode, in partial remission ??? Major depressive disorder, single episode in full remission Major Depressive Disorder, Recurrent ??? Major depressive disorder, recurrent, mild ??? Major depressive disorder, recurrent, moderate ??? Major depressive disorder, recurrent, severe without mention of psychotic behavior ??? Major depressive disorder, recurrent, severe specified as with psychotic behavior ??? Major depressive disorder, recurrent, in partial remission ??? Major depressive disorder, recurrent, in full remission -Other (Please Specify): In responding to this request, please exercise your independent professional judgement. The fact that a question is asked does not imply that any particular answer is desired or expected. If you have any questions, please feel free to contact me at extension [phone]. Thank you! Lauren Spencer LPN Clinical Cardiology Physician Assistant [place] [address] Extension: [phone] [email or web address] From: Scotty CHAVARRIA, Shailesh Lopez To: Lauren Spencer; Sent: 05/31/2024 12:45:51 EDT Subject: RE: Pre-Visit Planning Caller Name: LISA LING; Caller Number: Eliseo , M Pt cancelled apt tomorow. Came in today. After discussion would be major disorder recurrent moderate and pt continues to deal with bereavement. Normal [facility] Ambulatory Visit Summaryon 0 04-06-2024 Ambulatory Visit Summary Ambulatory Visit Summary LISA LING :1945 Visit Date:04/06/2024 Ambulatory Visit Instructions Your Diagnosis Bereavement Panic attacks Knee pain, right Nonsmoker Your Care Team Attending Physician - Shailesh Fajardo MD Primary Care Physician - Shailesh Fajardo MD This Is Your Medications List alprazolam (Xanax 0.5 mg Tab) estradiol topical (estradiol 0.1 mg/g Vag Crm) ibuprofen latanoprost ophthalmic nabumetone (nabumetone 500 mg Tab) ropinirole (ropinirole 1 mg Tab) venlafaxine (venlafaxine 150 mg Cap-ER) venlafaxine (venlafaxine 75 mg Cap-ER) verapamil (verapamil 180 mg Cap-ER) Procedures Performed Dilation of urethra (06/02/2023), Cystourethroscopy with dilation of urethral stricture (11/11/2022), Cystourethroscopy with dilation of urethral stricture (10/26/2019), Appendectomy, Colonoscopy, Hysterectomy, Tonsillectomy. Discharge Vitals Temperature (Tympanic) 36.7 ???C Heart Rate (Peripheral) 84 Respiratory Rate 18 Blood Pressure 132/84 Height 168 cm Height 66 in Weight 69.2 kg Weight 152.56 lb BMI 24.52 What to do next Scheduled Follow-Up Appointments Friday 9:30 AM EDT With: Shailesh Fajardo MD Where: [facility] [address] [address]- Friday 9:30 AM EDT With: Cosme COLORADO MD Where: [facility] [address] [place] [address]- Friday 11:00 AM EST With: Where: [facility] [place] [id number]- Medications What How Much When Instructions Unchanged alprazolam (Xanax 0.5 mg Tab) 1 Tablets By Mouth 3 times a day as needed for for anxiety Unchanged estradiol topical (estradiol 0.1 mg/ g Vag Crm) 1 Gram Vaginal Every week Unchanged ibuprofen 200 Milligram 2 times a day as needed for as needed for pain Unchanged latanoprost ophthalmic See instructions use as directed Unchanged nabumetone (nabumetone 500 mg Tab) 1 Tablets 2 times a day Unchanged ropinirole (ropinirole 1 mg Tab) See instructions TAKE 1 TABLET BY MOUTH DAILY 1 TO 3 HOURS BEFORE BEDTIME Unchanged venlafaxine (venlafaxine 150 mg Cap-ER) 1 Capsules By Mouth Every day Unchanged venlafaxine (venlafaxine 75 mg Cap-ER) 1 Capsules By Mouth Every day Unchanged verapamil (verapamil 180 mg Cap-ER) See instructions TAKE 1 CAPSULE BY MOUTH DAILY Allergies Latex (Itching, Rash) sulfa drugs (Hyper) Problems Ongoing - Any problem that you are currently receiving treatment for. Bereavement COVID-19 Depression Dizziness Frequent headaches History of urethral stricture Hot flashes Hypertension Insomnia Knee pain, right Microscopic hematuria Nonsmoker Panic attacks Postinfective urethral stricture in female Restless leg Sciatic pain SK (seborrheic keratosis) Patient Survey You may receive a survey via text or e-mail asking about your office visit. Please share your experience with us by completing your survey. We appreciate your feedback and thank you for choosing us for your care. Normal [facility] Family Medicine Office/Clini c Noteon 04-06-2024 Family Medicine Office/Clinic Note Family Medicine Office/Clinic Note Chief Complaint 6wk follow up Concerns regarding bereavement and persistent right knee pain. HPI Staff 6wk follow up to depression & panic attacks. Follow up for Mental Status: Medication adherence- Yes, takes medication as prescribed Medication refill needed: _ Suicidal thoughts-Not at this time Most recent ADRIANNE: 14 Most recent PHQ: 8 Referred to Ortho for 2nd opinion @ [facility]. Hip XR 03/22/24 Pt states she is not impressed. Will not be going back. Would like a different referral. Does need refill of Xanax sent to [facility] History of Present Illness The patient is a 78-year-old female presenting with bereavement and knee pain. She has experienced the loss of three friends in the past month, which has significantly impacted her emotional well-being. The patient discusses the of neighbors and a friend named Marina, whose cancer returned unexpectedly. A viewing for [place] was particularly poignant, causing emotional distress. Her anxiety levels have increased markedly with the recent bereavements, prompting increased use of Xanax. She reports struggling to get over the losses and communicates through writing to cope with her grief. In addition, the patient suffers from knee pain on the right side. She consulted Dr. Adorno's office, was evaluated by a Physician Application Development Director, and had X-rays performed. Though the suggestion of knee or hip surgery was given, the patient feels such interventions are currently unnecessary. She declined an injection, citing a lack of severity compared to previous episodes requiring such treatment. While no acute orthopedic intervention is needed now, the patient seeks reassurance of care in [place] if future flare-ups occur. - Discussion of bereavement and social support strategies. - No health screenings or tests discussed. - Current medication use of Xanax for anxiety management mentioned. Review of Systems PHQ Score Initial Depression Screen Score: 0 SCORE Physical Exam Vitals & Measurements T: 36.7 ???C(Tympanic) HR: 84(Peripheral) RR: 18 BP: 132/84 SpO2: 98% HT: 66 in HT: 168 cm WT: 69.2 kg WT: 152.56 lb BMI: 24.52 General: alert, no acute distress ENMT: oral mucosa moist Cardiovascular: Regular rate and rhythm, normal peripheral perfusion Respiratory: Lungs clear to auscultation, respirations non labored Extremities: no deformity, no trauma Neurological: oriented x 4, level of consciousness appropriate for age, CN II-XII intact, motor strength equal & normal bilaterally, speech normal Abdomen: Soft, Non-tender, Non-distended, + Bowel sounds Assessment/Plan 1. Bereavement (Z63.4: Disappearance and of family member) The patient's psychological distress is significant due to recent losses. Continued support is essential. Xanax will be refilled to manage her anxiety. Encouragement in seeking additional support through writing and communicating with friends and family is recommended. 2. Panic attacks (F41.0: Panic disorder [episodic paroxysmal anxiety]) While the panic disorder persists, it is exacerbated by recent bereavement. Refill prescription for Xanax and provide supportive counseling. Monitor the frequency and severity of panic episodes. 3. Knee pain, right (M25.561: Pain in right knee) The patient's pain management includes monitoring, with future knee injections as an option if symptoms worsen. No immediate intervention is desired, but readiness for injection upon patient request is ensured. 4. Nonsmoker (Z78.9: Other specified health status) Continued reassurance and encouragement are given to sustain her non-smoking status. Orders: alprazolam, 0.5 mg = 1 tab(s), Oral, TID, PRN for anxiety, # 60 tab(s), Refills(s) 0, Pharmacy: [facility], 168, cm, 04/06/24 9:14:00 EST, Height/Length Dosing, 69.2, kg, 04/06/24 9:14:00 EST, Weight Dosing 78-year-old female with history of bereavement and knee pain presenting with ongoing anxiety and grief. The bereavement has manifested severely, affecting her emotional state and prompting more frequent use of Xanax. With respect to her musculoskeletal concerns, she experiences intermittent right knee pain with episodic exacerbations, currently manageable without further intervention beyond monitoring and potential injections if necessary. The patient's smoking status is non-smoker, which is beneficial for her overall health. During this consultation, I addressed the patient's concerns regarding bereavement and knee pain. We discussed the impact of recent losses on her emotional health and the subsequent increase in Xanax use for anxiety management. I emphasized the importance of social support and coping strategies such as writing. Regarding her knee pain, we reviewed the recent evaluation at Dr. Adorno's and concluded that no new intervention is necessary at this time, with the plan to offer knee injections if symptoms escalate. I reassured her about the availability of care should (more content not included)... Normal [facility] Comment on above: Result Comment: Elec tronically Signed By: Scotty CHAVARRIA, Shailesh Prado.br\Date and Time Signed: 04/06/24 09:41 EST Ambulatory Visit Summaryon 0 03-04-2024 Ambulatory Visit Summary Ambulatory Visit Summary LISA LING :1945 Visit Date:03/04/2024 Ambulatory Visit Instructions Your Diagnosis Bereavement Depression Hypertension Insomnia Panic attacks Knee pain, right Nonsmoker Restless leg Your Care Team Attending Physician - Shailesh Fajardo MD Primary Care Physician - Shailesh Fajardo MD This Is Your Medications List alprazolam (Xanax 0.5 mg Tab) estradiol topical (estradiol 0.1 mg/g Vag Crm) ibuprofen latanoprost ophthalmic nabumetone (nabumetone 500 mg Tab) ropinirole (ropinirole 1 mg Tab) venlafaxine (venlafaxine 150 mg Cap-ER) venlafaxine (venlafaxine 75 mg Cap-ER) verapamil (verapamil 180 mg Cap-ER) Procedures Performed Dilation of urethra (06/02/2023), Cystourethroscopy with dilation of urethral stricture (11/11/2022), Cystourethroscopy with dilation of urethral stricture (10/26/2019), Appendectomy, Colonoscopy, Hysterectomy, Tonsillectomy. Discharge Vitals Temperature (Tympanic) 36.8 ???C Heart Rate (Peripheral) 76 Respiratory Rate 18 Blood Pressure 136/84 Height 168 cm Height 66 in Weight 67.9 kg Weight 149.694 lb BMI 24.06 What to do next Scheduled Follow-Up Appointments Friday 9:15 AM EST With: Shailesh Fajardo MD Where: [address] [address]- Friday 9:30 AM EDT With: Cosme COLORADO MD Where: [facility] [address] [place], [place] [id number]- Friday 11:00 AM EST With: Where: [address] [address]- Medications What How Much When Instructions Unchanged alprazolam (Xanax 0.5 mg Tab) 1 Tablets By Mouth 3 times a day as needed for for anxiety Unchanged estradiol topical (estradiol 0.1 mg/ g Vag Crm) 1 Gram Vaginal Every week Unchanged ibuprofen 200 Milligram 2 times a day as needed for as needed for pain Unchanged latanoprost ophthalmic See instructions use as directed Unchanged nabumetone (nabumetone 500 mg Tab) 1 Tablets 2 times a day Unchanged ropinirole (ropinirole 1 mg Tab) See instructions TAKE 1 TABLET BY MOUTH DAILY 1 TO 3 HOURS BEFORE BEDTIME Unchanged venlafaxine (venlafaxine 150 mg Cap-ER) 1 Capsules By Mouth Every day Unchanged venlafaxine (venlafaxine 75 mg Cap-ER) 1 Capsules By Mouth Every day Unchanged verapamil (verapamil 180 mg Cap-ER) See instructions TAKE 1 CAPSULE BY MOUTH DAILY Allergies Latex (Itching, Rash) sulfa drugs (Hyper) Problems Ongoing - Any problem that you are currently receiving treatment for. Bereavement BMI 23.0-23.9, adult BMI 24.0-24.9, adult BMI 26.0-26.9,adult COVID-19 Depression Dizziness Frequent headaches History of urethral stricture Hot flashes Hypertension Insomnia Knee pain, right Microscopic hematuria Nonsmoker Panic attacks Postinfective urethral stricture in female Restless leg Sciatic pain SK (seborrheic keratosis) Patient Survey You may receive a survey via text or e-mail asking about your office visit. Please share your experience with us by completing your survey. We appreciate your feedback and thank you for choosing us for your care. Normal [facility] Family Medicine Office/Clini c Noteon 03-04-2024 Family Medicine Office/Clinic Note Family Medicine Office/Clinic Note Chief Complaint 6m follow up HPI Staff 6m follow up & to review recent labs done 02/20/24 Ropinirole increased to 1mg @ time of [facility] for restless legs, pt took for 3 days, then stopped due to constipation. Last seen by Dr Velasquez 12/18/23 Pt also started on Xanax for panic attacks. Medicare Wellness done 02/16/24 PHQ 13 & ADRIANNE 16 at that time PHQ 18 today. Pt states her best friend recently passed unexpectedly. Does find the Xanax helpful. Does need refill. Health Maintenance: Colonoscopy: Aged out Dexa: 10/10/24 Mammo: last yr. Pap: yrs ago Last Labs: 02/20/24 NEG FIT test 02/10/24 Patient is here for follow up on hypertension. How often are you checking your blood pressure? _no What are your average readings? _ Yearly BMP: 02/20/24 History of Present Illness Pt here for follow up. Lost her best friend. She has been friends for over 50 years. This has caused her to be depressed. She would like xanax refilled. Review of Systems PHQ Score Initial Depression Screen Score: 6 SCORE Detailed Depression Screen Score: 12 Total Depression Screen Score: 18 Physical Exam Vitals & Measurements T: 36.8 ???C(Tympanic) HR: 76(Peripheral) RR: 18 BP: 136/84 SpO2: 99% HT: 66 in HT: 168 cm WT: 67.9 kg WT: 149.694 lb BMI: 24.06 General: alert, no acute distress ENMT: oral mucosa moist, Cardiovascular: regular rate and rhythm, normal peripheral perfusion Respiratory: Lungs CTA, respirations non labored Extremities: no deformity, no trauma Neurological: oriented x 4, LOC appropriate for age, CN II-XII intact, motor strength equal & normal bilaterally, speech normal Abdomen: Soft, Nontender, Non-distended, + BS Assessment/Plan 1. Bereavement (Z63.4: Disappearance and of family member) Discussed discussing grief. Discussed counseling. NO change in meds at this time. Will follow up in 6 weeks. Ordered: [facility] External Ambulatory Referral 2. Depression (F32.A: Depression, unspecified) Elevated 2/2 number 1. Ordered: [facility] External Ambulatory Referral 3. Hypertension (I10: Essential (primary) hypertension) At goal. No issues at this time. Ordered: [facility] External Ambulatory Referral 4. Insomnia (G47.00: Insomnia, unspecified) Trouble 2/2 number1. Ordered: [facility] External Ambulatory Referral 5. Panic attacks (F41.0: Panic disorder [episodic paroxysmal anxiety]) Will refill the xanax. Ordered: [facility] External Ambulatory Referral 6. Knee pain, right (M25.561: Pain in right knee) Will refer to another ortho. 7. Nonsmoker (Z78.9: Other specified health status) Please continue to not smoke. 8. Restless leg (G25.81: Restless legs syndrome) Will refill. Well controlled. Orders: alprazolam, 0.5 mg = 1 tab(s), Oral, TID, PRN for anxiety, # 60 tab(s), Refills(s) 0, Pharmacy: [facility], 168, cm, 03/04/24 9:36:00 EST, Height/Length Dosing, 67.9, kg, 03/04/24 9:36:00 EST, Weight Dosing hydrochlorothiazide, 25 mg = 1 tab(s), Oral, Daily, # 90 tab(s), Refills(s) 1, Pharmacy: [facility], 162, cm, 05/05/23 11:20:00 EDT, Height/Length Dosing, 68.8, kg, 05/05/23 11:20:00 EDT, Weight Dosing ropinirole, See Instructions, TAKE 1 TABLET BY MOUTH DAILY 1 TO 3 HOURS BEFORE BEDTIME, # 90 tab(s), Refills(s) 3, Pharmacy: [facility], 168, cm, 03/04/24 9:36:00 EST, Height/Length Dosing, 67.9, kg, 03/04/24 9:36:00 EST, Weight Dosing Follow-up No qualifying data available Problem List/Past Medical History Ongoing Bereavement BMI 23.0-23.9, adult BMI 24.0-24.9, adult BMI 26.0-26.9,adult COVID-19 Depression Dizziness Frequent headaches History of urethral stricture Hot flashes Hypertension Insomnia Knee pain, right Microscopic hematuria Nonsmoker Panic attacks Postinfective urethral stricture in female Restless leg Sciatic pain SK (seborrheic keratosis) Historical No qualifying data Procedure/Surgical History Dilation of urethra (06/02/2023), Cystourethroscopy with dilation of urethral stricture (11/11/2022), Cystourethroscopy with dilation of urethral stricture (10/26/2019), Appendectomy, Colonoscopy, Hysterectomy, Tonsillectomy. Medications estradiol 0.1 mg/g Vag Crm, 1 gm, Vaginal, qWeek, 6 refills, Not taking: too messy ibuprofen, 200 mg, BID, PRN latanoprost ophthalmic, See Instructions nabumetone 500 mg Tab, 500 mg= 1 tab(s), BID, Still taking, not as prescribed: takes as needed ropinirole 1 mg Tab, See Instructions, 3 refills venlafaxine 150 mg Cap-ER, 150 mg= 1 cap(s), Oral, Daily, 3 refills venlafaxine 75 mg Cap-ER, 75 mg= 1 cap(s), Oral, Daily, 3 refills verapamil 180 mg Cap-ER, See Instructions, 3 refills Xanax 0.5 mg Tab, 0.5 mg= 1 tab(s), Oral, TID, PRN Allergies Latex (Itching, Rash) sulfa drugs (Hyper) Social History Alcohol Current. Wine, Liquor. 1-2 times per week., 03/04/2024 Substance Abuse - Denies Substance Abuse, 02/16/2024 Never., (more content not included)... Normal [facility] Comment on above: Result Comment: Elec tronically Signed By: Scotty CHAVARRIA, Shailesh Prado.br\Date and Time Signed: 03/04/24 10:19 EST CHEMISTRYOrdered By: SYSTEM SYSTEM on 02-20-2024 Albumin [Mass/Vol] 4.2 g/dL Normal 3.3 - 5.0 gm/dL Remisol Chem Albumin DL <= 20 mg/L (U) [Mass/Vol] 9.9 mg/dL High 0.0 - 1.9 mg/dL Remisol Chem Albumin/Creatinine DL <= 20 mg/L (U) [Mass ratio] 153.5 mg/gm Cr High 0.0 - 30.0 mg/gm Cr [facility] Comment on above: Interpretive Data: 3 0-300 mg/g Cr indicates an increased risk for diabetic nephropathy. >300 mg/g Cr is consistent with clinical nephropathy. Albumin/Globulin [Mass ratio] 1.4 {ratio} Normal 1.1 - 2.2 Remisol Chem ALP [Catalytic activity/Vol] 101 [iU]/d High 21 - 98 Int._Unit/L Remisol Chem ALT No additional P-5'-P [Catalytic activity/Vol] 20 [iU]/d Normal 6 - 46 Int._Unit/L Remisol Chem Anion gap [Moles/Vol] 11 mmol/L Normal 6 - 16 mEq/L R emisol Chem AST [Catalytic activity/Vol] 18 [iU]/d Normal 5 - 43 Int._Unit/L Remisol Chem Bilirubin [Mass/Vol] 0.6 mg/dL Normal 0.0 - 1 .1 mg/dL Remisol Chem Calcium [Mass/Vol] 9.6 mg/dL Normal 8.9 - 11. 1 mg/dL Remisol Chem Chloride [Moles/Vol] 107 mmol/L Normal 101 - 1 11 mmol/L Remisol Chem Cholesterol [Mass/Vol] 228 mg/dL High 120 - 200 mg/dL Remisol Chem Cholesterol in HDL [Mass/Vol] 93 mg/dL Invalid Interpretation Code Remisol Chem Comment on above: Result Comment: '>= 60 LOW RISK' '<= 40 HIGH RISK' Cholesterol in LDL [Mass/Vol] 113 mg/dL Normal <=129mg/dL Remisol Chem Cholesterol in VLDL [Mass/Vol] 18 mg/dL Normal 7 - 40 mg/dL Remisol Chem CO2 [Moles/Vol] 29 mmol/L Normal 21 - 31 mmol/L Remisol Chem Creatinine [Mass/Vol] 0.9 mg/dL Normal 0.5 - 1.3 mg/dL Remisol Chem eGFR 65 mL/min/1.73 m2 Normal >=59mL/min /1 .73 m2 Rem[facility] Chem Globulin (S) [Mass/Vol] 3.0 g/dL Normal 1.4 - 4.0 gm/dL Rem[facility] Glucose [Mass/Vol] 103 mg/dL Normal 55 - 199 mg/dL Remisol Chem Potassium [Moles/Vol] 4.0 mmol/L Normal 3.5 - 5.3 mmol/L Remisol Chem Protein [Mass/Vol] 7.2 g/dL Normal 6.0 - 7.8 gm/dL Remisol Chem Sodium [Moles/Vol] 143 mmol/L Normal 135 - 145 mmol/L Remisol Chem Triglyceride [Mass/Vol] 91 mg/dL Normal <=149mg/dL Remisol Chem U Creatinine 64.5 mg/dL Invalid Interpretation Code Remisol Chem Urea nitrogen [Mass/Vol] 20 mg/dL Normal 5 - 21 mg/dL Remisol Chem Urea nitrogen/Creatinine [Mass ratio] 22 mg/mg High 10 - 20 Remisol Chem CMPon 02-20-2024 Albumin [Mass/Vol] 4.2 g/dL Normal 3.3-5.0 [facility] Comment on above: Performed By: #### 2 [id number] #### [facility] [address] [place] [address] Albumin/Globulin (S) [Mass conc ratio] 1.4 Normal 1.1-2.2 [facility] Comment on above: Performed By: #### 2 [id number] #### [facility] [address] [place] [address] ALP [Catalytic activity/Vol] 101 Int._Unit/L High 21-98 [facility] Comment on above: Performed By: #### 2 [id number] #### [facility] [address] [place] [address] ALT No additional P-5'-P [Catalytic activity/Vol] 20 Int._Unit/L Normal 6-46 [facility] Comment on above: Performed By: #### 2 [id number] #### [facility] [address] [place] [address] Anion gap [Moles/Vol] 11 mmol/L Normal 6-16 [facility] Comment on above: Performed By: #### 2 [id number] #### [facility] [address] [place] [address] AST [Catalytic activity/Vol] 18 Int._Unit/L Normal 5-43 [facility] Comment on above: Performed By: #### 2 [id number] #### [facility] [address] [place] [address] Bilirubin [Mass/Vol] 0.6 mg/dL Normal 0.0-1.1 [facility] Comment on above: Performed By: #### 2 [id number] #### [facility] [address] [place] [address] Calcium [Mass/Vol] 9.6 mg/dL Normal 8.9-11.1 [facility] Comment on above: Performed By: #### 2 [id number] #### [facility] [address] [place] [address] Chloride [Moles/Vol] 107 mmol/L Normal 101-111 [facility] Comment on above: Performed By: #### 2 [id number] #### [facility] [address] [place] [address] CO2 [Moles/Vol] 29 mmol/L Normal 21-[address] [facility] Comment on above: Performed By: #### 2 [id number] #### [facility] [address] [place] [address] Creatinine [Mass/Vol] 0.9 mg/dL Normal 0.5-1.3 [facility] Comment on above: Performed By: #### 2 [id number] #### [facility] [address] [place] [address] Globulin (S) [Mass/Vol] 3.0 g/dL Normal 1.4-4.0 [facility] Comment on above: Performed By: #### 2 [id number] #### [facility] [address] [place] [address] Glucose [Mass/Vol] 103 mg/dL Normal 55-199 [facility] Comment on above: Performed By: #### 2 [id number] #### [facility] [address] [place] [address] Potassium [Moles/Vol] 4.0 mmol/L Normal 3.5-5.3 [facility] Comment on above: Performed By: #### 2 [id number] #### [facility] [address] [place] [address] Protein [Mass/Vol] 7.2 g/dL Normal 6.0-7.8 [facility] Comment on above: Performed By: #### 2 [id number] #### [facility] [address] [place] [address] Sodium [Moles/Vol] 143 mmol/L Normal 135-145 [facility] Comment on above: Performed By: #### 2 [id number] #### [facility] [address] [place] [address] Urea nitrogen [Mass/Vol] 20 mg/dL Normal 5-21 [facility] Comment on above: Performed By: #### 2 [id number] #### [facility] [address] [place] [address] Urea nitrogen/Creatinine [Mass ratio] 22 No Units High 10-20 [facility] Comment on above: Performed By: #### 2 [id number] #### [facility] [address] [place] [address] Lipid Panelon 02-20-2024 Cholesterol [Mass/Vol] 228 mg/dL High 120-200 [facility] Comment on above: Performed By: #### 2 [id number] #### [facility] [address] [place] [address] Cholesterol in HDL [Mass/Vol] 93 mg/dL Invalid Interpretation Code [facility] Comment on above: Result Comment: '>= 60 LOW RISK' '<= 40 HIGH RISK' Performed By: #### 2 [id number] #### [facility] [address] [place] [address] Cholesterol in LDL [Mass/Vol] 113 mg/dL Normal <=129 [facility] Comment on above: Performed By: #### 2 [id number] #### [facility] [address] [place] [address] Cholesterol in VLDL [Mass/Vol] 18 mg/dL Normal 7-40 [facility] Comment on above: Performed By: #### 2 [id number] #### [facility] [address] [place] [address] Triglyceride [Mass/Vol] 91 mg/dL Normal <=149 [facility] Comment on above: Performed By: #### 2 [id number] #### [facility] [address] [place] [address] U MA/Cr Ratioon 02-20-2024 Albumin DL <= 20 mg/L (U) [Mass/Vol] 9.9 mg/dL High 0.0-1.9 [facility] Comment on above: Performed By: #### 1 [id number] #### [facility] [address] [place] [address] Albumin/Creatinine DL <= 20 mg/L (U) [Mass ratio] 153.5 mg/gm Cr High .0-30.0 [facility] Comment on above: Result Comment: 30-3 00 mg/g Cr indicates an increased risk for diabetic nephropathy. >300 mg/g Cr is consistent with clinical nephropathy. Performed By: #### 1 [id number] #### [facility] [address] [place] [address] U Creatinine 64.5 mg/dL Invalid Interpretation Code [facility] Comment on above: Performed By: #### 1 [id number] #### [facility] [address] [place] [address] eGFRon 02-20-2024 eGFR 65 mL/min/1.73 m2 Normal >=59 [facility] Comment on above: Performed By: #### 1 [id number] #### [facility] [address] [place] [address] Ambulatory Visit Summaryon 1 Ambulatory Visit Summary Ambulatory Visit Summary LISA LING :1945 Visit Date:02/16/2024 Ambulatory Visit Instructions Your Diagnosis Encounter for Medicare annual examination with abnormal findings Hypertension Depression Panic attacks Screening declined by patient Advanced directives, counseling/discussion Family history of diabetes mellitus Screening for ischemic heart disease Your Care Team Attending Physician - Shailesh Fajardo MD Primary Care Physician - Shailesh Fajardo MD This Is Your Medications List alprazolam (Xanax 0.5 mg Tab) estradiol topical (estradiol 0.1 mg/g Vag Crm) gabapentin (gabapentin 300 mg Cap) hydrochlorothiazide (hydrochlorothiazide 25 mg Tab) ibuprofen latanoprost ophthalmic nabumetone (nabumetone 500 mg Tab) ropinirole (ropinirole 1 mg Tab) venlafaxine (venlafaxine 150 mg Cap-ER) venlafaxine (venlafaxine 75 mg Cap-ER) verapamil (verapamil 180 mg Cap-ER) Procedures Performed Dilation of urethra (06/02/2023), Cystourethroscopy with dilation of urethral stricture (11/11/2022), Cystourethroscopy with dilation of urethral stricture (10/26/2019), Appendectomy, Colonoscopy, Hysterectomy, Tonsillectomy. Discharge Vitals Heart Rate (Peripheral) 82 Blood Pressure 138/78 Height 168 cm Height 66 in Weight 67.4 kg Weight 148.591 lb BMI 23.88 What to do next Scheduled Follow-Up Appointments Friday 8:20 AM EST With: Where: [address] [address]- 2024 9:15 AM EST With: Scotty CHAVARRIA, Shailesh Lopez Where: [address] [address]- Friday 9:30 AM EDT With: STANISLAV CHAVARRIA, Cosme Paul Where: [facility] [address] [place] [address]- Friday 11:00 AM EST With: Where: [address] [address]- You Need to Complete the Following Comprehensive Metabolic Panel, Blood, Routine collect, 02/16/24, Order for future visit, Lab Collect, Hypertension, Print Label By Order Location Lipid Panel, Blood, Routine collect, 02/16/24, Order for future visit, Lab Collect, Screening for ischemic heart disease, Print Label By Order Location Urine Microalbumin/Creatinin e Ratio, Urine, Routine collect, 02/16/24, Order for future visit, Nurse collect, Hypertension, Print Label By Order Location Medications What How Much When Instructions Unchanged alprazolam (Xanax 0.5 mg Tab) 1 Tablets By Mouth 3 times a day as needed for for anxiety Unchanged estradiol topical (estradiol 0.1 mg/ g Vag Crm) 1 Gram Vaginal Every week Unchanged gabapentin (gabapentin 300 mg Cap) 1 Capsules By Mouth 2 times a day Unchanged hydrochlorothiazide (hydrochlorothiazide 25 mg Tab) 1 Tablets By Mouth Every day Unchanged ibuprofen 200 Milligram 2 times a day as needed for as needed for pain Unchanged latanoprost ophthalmic See instructions use as directed Unchanged nabumetone (nabumetone 500 mg Tab) 1 Tablets 2 times a day Unchanged ropinirole (ropinirole 1 mg Tab) See instructions TAKE 1 TABLET BY MOUTH DAILY 1 TO 3 HOURS BEFORE BEDTIME Unchanged venlafaxine (venlafaxine 150 mg Cap-ER) 1 Capsules By Mouth Every day Unchanged venlafaxine (venlafaxine 75 mg Cap-ER) 1 Capsules By Mouth Every day Unchanged verapamil (verapamil 180 mg Cap-ER) See instructions TAKE 1 CAPSULE BY MOUTH DAILY Allergies Latex (Itching, Rash) sulfa drugs (Hyper) Problems Ongoing - Any problem that you are currently receiving treatment for. BMI 23.0-23.9, adult BMI 26.0-26.9,adult COVID-19 Depression Dizziness Frequent headaches History of urethral stricture Hot flashes Hypertension Insomnia Microscopic hematuria Panic attacks Postinfective urethral stricture in female Restless leg Sciatic pain SK (seborrheic keratosis) Urge incontinence Urinary urgency Patient Survey You may receive a survey via text or e-mail asking about your office visit. Please share your experience with us by completing your survey. We appreciate your feedback and thank you for choosing us for your care. Education Materials Preventing Type 2 Diabetes Mellitus Type 2 diabetes, also called type 2 diabetes mellitus, is a long-term (chronic) disease that affects sugar (glucose) levels in your blood. Normally, a hormone called insulin allows glucose to enter cells in your body. The cells use glucose for energy. With type 2 diabetes, you will have one or both of these problems: ??? Your pancreas does not make enough insulin. ??? Cells in your body do not respond properly to insulin that your body makes (insulin resistance). Insulin resistance or lack of insulin causes extra glucose to build up in the (more content not included)... Normal [facility] Family Medicine Office/Clini c Noteon 02-16-2024 Family Medicine Office/Clinic Note Family Medicine Office/Clinic Note Chief Complaint Subsequent Medicare Wellness Review of Systems PHQ Score Initial Depression Screen Score: 2 SCORE Physical Exam Vitals & Measurements HR: 82(Peripheral) BP: 138/78 SpO2: 97% HT: 168 cm HT: 66 in WT: 67.4 kg WT: 148.591 lb BMI: 23.88 Procedure I was in the office and available for consultation and to provide direct supervision at the time of this visit. I have provided supervision of the care team and have reviewed this chart and office note and agree with the plan of care. Assessment/Plan 1. Encounter for Medicare annual examination with abnormal findings (Z00.01: Encounter for general adult medical examination with abnormal findings) The patient was given a customized and personalized print out of all the current AHRQ USPSTF???s recommendations for preventative services and all current CDC recommended immunizations, relevant risk recommendations and the following patient brochures were given. Reviewed Medicare Prevention Services checklist. CDC-Falls Prevention and home safety screening reviewed. Patient admits to one non injury fall in last 12 months, voices worry about falling. Exhibits no problems with sitting, standing or ambulation. Patient aware with keeping walk way area free of clutter to prevent tripping and/or falling. [place] Advance Directives reviewed. See #6. Patient denies any problems with ADL???s and Instrumental ADL???s. Immunization record reviewed, discussed Shingrix vaccine with educational handout and availability. 2 COVID vaccines have been administered, with 3 Boosters received. Allergies and medications reviewed and up to date. No concerns with taking medication as prescribed. Reviewed OTC medications, medication list up to date. Blood tests were reviewed: Discussed what tests need to be updated. Labs were ordered, will have completed prior to next PCP visit. Labs to be completed with [facility]. No concerns with bowel/ bladder. Colonoscopy screening no longer done. Reviewed pain symptoms: chronic right leg, rates pain as a 5 out of 10, gabapentin and nabumetone. Reviewed all outside providers that patient follows. Last visit summary notes available in chart and/or have been requested. Patient admits to signs or symptoms of depression. 8 minutes spent with screening and documentation. PHQ2 screening score 13. See #3 Patient drinks alcohol 1-2 times weekly 1-2 drinks, denies concerns. 8 minutes spent with screening and documentation. Audit score 2. Follow up scheduled with PCP, 03/04/2024 AWV has been scheduled, 02/16/2025 Medicare provides yearly screening for alcohol and depression concerns. This is completed during our Medicare wellness visit for those who do not have a current diagnosis of depression or concerns with alcohol use. I spent a total of 17 minutes on this date of service which included preparing to see the patient, face to face patient care, completing clinical documentation, obtaining and/or reviewing separately obtained history, counseling and educating the patient with handouts. Explanations were provided with reviewing questionnaires. AUDIT risk assessment screening completed, risk score 2 with patient denying concerns with use. Completed PHQ-2 risk assessment for depression with risk score 13, positive findings. Patient has been reminded to notify the provider if there would be a change or concerns with symptoms with fear, unable to sleep, worrying too much or feeling down and/or sad with lost of interest with daily activities. Will continue to monitor with screening yearly during Medicare wellness visits. Chronic Care Management referral offered. Patient declines at this time. Information provided. 2. Hypertension (I10: Essential (primary) hypertension) Patient is not taking HCTZ daily as directed, is taking verapamil. Does not monitor BP pressure at home. HTN stoplight reviewed with BP goal to be <140/90. Reviewed different factors that can alter blood pressure readings. Education handout provided with s/s to monitor for and report to provider. Patient is encouraged to increase portions of fruit, vegetables, fiber and increase exercise as much as tolerable. Reviewed importance with monitoring foods high in salt content and encouraged to limit intake, if unsure encouraged to discuss with their PCP. Encouraged to eat more chicken, fish and lean white meats and limits red meats in diet. Discussed importance with keeping BP under good control to reduce CVA risk factors. Will continue to f/u with PCP during office visits and as needed. CMP and Urine creatinine and microalbumin ordered. 3. Depression (F32.A: Depression, unspecified) Patient taking venlafaxine daily, voices medication needs to be adjusted . Follows up with PCP with medication management and symptom control. PHQ-9 risk assessment completed with positive findings. Total risk score is 13. Patient denies any suicidal ideations at this time. Reviewed additional signs/symptoms to monitor for and r (more content not included)... Normal [facility] Comment on above: Result Comment: Elec tronically Signed By: JOCELIN GUAMAN CNP\.br\Date and Time Signed: 02/16/24 13:54 EST\.br\Electronically Co-Signed By: Heather Perez\.br\Date and Time Co-Signed: 02/16/24 12:13 EST No Panel Informationon 12-17 Vianey Velasquez DO 12/19/2023 6:13 AM L Inj/Asp: R knee on 12/18/2023 12:15 PM Indications: pain Details: 21 G needle, anterolateral approach Medications: 40 mg methylPREDNISolone acetate 40 MG/ML Outcome: tolerated well, no immediate complications Procedure, treatment alternatives, risks and benefits explained, specific risks discussed. Consent was given by the patient. [facility] MR LUMBAR SPINE WO CONTRASTo n 10-28-2023 MR LUMBAR SPINE WO CONTRAST EXAM: MRI Lumbar Spine without Contrast: REASON FOR EXAM: Low back pain. TECHNIQUE: Coronal T2, sagittal T2, sagittal T1, sagittal STIR, axial T2-weighted images of the lumbar spine were obtained. FINDINGS: The paraspinal soft tissues are without acute abnormality. T2 hyperintensities in the renal sinuses bilaterally consistent with peripelvic cysts incompletely visualized. Parenchymal left renal cyst noted. The conus terminates at the mid L1 level and is normal in appearance. Vertebral body height is maintained. There is increased T1 and increased T2 signal in the endplates at L2, L3, L4, L5 and S1 consistent with Modic type II chronic endplate changes. No height loss, bone marrow edema or pathologic lesion within the limitations of the exam. Tarlov cyst incidentally noted in the sacrum. At T12-L1, there is no disc protrusion, central canal or foraminal stenosis. At L1-L2, there is a broad-based, central, left paracentral, extradural defect measuring 8.5 x 9.6 mm. There is inferior extension of 1.6 cm. There is lateral recess stenosis on the left. Mild central canal but no significant foraminal stenosis. Facet arthrosis is noted. Nerve root cyst or dural ectasia is present on the left with mild mass effect on the exiting nerve root. At L2-L3, there is a broad-based 3 mm disc protrusion. There is endplate hypertrophy and facet arthrosis. There is mild bilateral foraminal stenosis. Facet arthrosis is present. At L3-L4, there is a broad-based 7 mm disc protrusion. There is ligamentum flavum hypertrophic change and facet arthrosis. There is lateral recess stenosis on the left. There is mild canal, moderate to severe left-sided foraminal and mild right-sided foraminal narrowing. At L4-L5, there is a broad-based 2 mm disc protrusion. There is 2 mm of anterolisthesis of L4 on L5. There is facet arthrosis and ligamentum flavum hypertrophic change. There is mild bilateral foraminal narrowing, greater on the left. Facet arthrosis is present. At L5-S1, there is a broad-based 4 mm disc protrusion. T2 signal in the posterior aspect of the disc consistent with an annular tear. Mild bilateral foraminal narrowing. Facet arthrosis and ligamentum flavum hypertrophic change. For counting purposes, there are five non rib-bearing type lumbar vertebral bodies. IMPRESSION: 1. There is a focal central and left paracentral inferior extruded disc at L1-L2 with lateral recess narrowing and a large annular tear. Correlate for left L2 radicular pattern. Mild foraminal and canal stenosis. Nerve root cyst versus dural ectasia on the left. 2. Moderate multilevel degenerative disc disease below this level, greatest at L3-L4 with lateral recess stenosis on the left. Correlate for left L4 radicular pattern. Grade 1 spondylolisthesis of L4 on L5. *This report is generated using voice recognition reporting ([employer]). On occasion [employer] erroneously drops words from the report or replaces the spoken word with similar sounding words. Please call with any questions/concerns regarding this report.* Dictated and transcribed 10/28/2023/renan This report has been electronically signed and approved by the interpreting radiologist. Electronically Signed Suleman Bustillo II, M.D. 2023-10-28 11:31:46 Normal Not Available Comment on above: Order Comment: MRI l umbar spine w/o. CHASE Ackerman Ambulatory Visit Summaryon 0 09-09-2023 Ambulatory Visit Summary Ambulatory Visit Summary LISA LING :1945 Visit Date:09/09/2023 Ambulatory Visit Instructions Your Diagnosis Restless leg Primary insomnia Panic attacks BMI 23.0-23.9, adult Nonsmoker Sciatic pain Your Care Team Attending Physician - Shailesh Fajardo MD. Primary Care Physician - Shailesh Fajardo MD This Is Your Medications List estradiol topical (estradiol 0.1 mg/g Vag Crm) hydrochlorothiazide (hydrochlorothiazide 25 mg Tab) ibuprofen latanoprost ophthalmic ropinirole (ropinirole 0.5 mg Tab) venlafaxine (venlafaxine 150 mg Cap-ER) venlafaxine (venlafaxine 75 mg Cap-ER) verapamil (verapamil 180 mg Cap-ER) Procedures Performed Dilation of urethra (06/02/2023), Cystourethroscopy with dilation of urethral stricture (11/11/2022), Cystourethroscopy with dilation of urethral stricture (10/26/2019), Appendectomy, Colonoscopy, Hysterectomy, Tonsillectomy. Discharge Vitals Temperature (Temporal Artery) 37.3 ?C Heart Rate (Peripheral) 80 Respiratory Rate 18 Blood Pressure 128/84 Height 168 cm Height 66 in Weight 67.7 kg Weight 148.94 lb BMI 23.99 What to do next Scheduled Follow-Up Appointments Friday 10:45 AM EDT With: Scotty CHAVARRIA, Shailesh Lopez Where: [address] [id number]- Friday 11:00 AM EST With: Where: [address] [address]- Friday 9:30 AM EDT With: STANISLAV CHAVARRIA, Cosme Paul Where: [facility] [address] [place], [place] [id number]- Medications What How Much When Instructions Unchanged estradiol topical (estradiol 0.1 mg/ g Vag Crm) 1 Gram Vaginal Every week Unchanged hydrochlorothiazide (hydrochlorothiazide 25 mg Tab) 1 Tablets By Mouth Every day Unchanged ibuprofen 200 Milligram 2 times a day as needed for as needed for pain Unchanged latanoprost ophthalmic See instructions use as directed Unchanged ropinirole (ropinirole 0.5 mg Tab) 1 Tablets By Mouth Every day Duration: 30 Days 1 to 3 hours before bedtime Unchanged venlafaxine (venlafaxine 150 mg Cap-ER) 1 Capsules By Mouth Every day Unchanged venlafaxine (venlafaxine 75 mg Cap-ER) 1 Capsules By Mouth Every day Unchanged verapamil (verapamil 180 mg Cap-ER) See instructions TAKE 1 CAPSULE BY MOUTH DAILY Allergies Latex (Itching, Rash) sulfa drugs (Hyper) Problems Ongoing - Any problem that you are currently receiving treatment for. BMI 26.0-26.9,adult COVID-19 Depression Dizziness Frequent headaches History of urethral stricture Hot flashes Hypertension Insomnia Microscopic hematuria Panic attacks Postinfective urethral stricture in female Restless leg Sciatic pain SK (seborrheic keratosis) Urge incontinence Urinary urgency Patient Survey You may receive a survey via text or e-mail asking about your office visit. Please share your experience with us by completing your survey. We appreciate your feedback and thank you for choosing us for your care. Normal [facility] Family Medicine Office/Clini c Noteon 09-09-2023 Family Medicine Office/Clinic Note Family Medicine Office/Clinic Note HPI Staff Lisa is a 77 year old female presenting for one month follow up restless legs BRUNO increase ropinirole to 0.5mg Still having some trouble with the restless legs, the increase helped somewhat but sometimes in the morning she feels kind of groggy but it does pass questions/concerns: needs a refill of her xanax if you can, she has 2 left and has to use them at times her current bottle has Dr Mcmillan's name on it. not filled since 2021 according to her rx bottle Also taking baclofen 10 mg tid and will be seeing Dr Velasquez today for her back and leg pain A little bit shakey today she blames it on the pain History of Present Illness - See staff HPI Review of Systems PHQ Score Initial Depression Screen Score: 0 SCORE Physical Exam Vitals & Measurements T: 37.3 ?C(Temporal Artery) HR: 80(Peripheral) RR: 18 BP: 128/84 SpO2: 99% HT: 66 in HT: 168 cm WT: 67.7 kg WT: 148.94 lb BMI: 23.99 General: alert, no acute distress ENMT: oral mucosa moist, Cardiovascular: regular rate and rhythm, normal peripheral perfusion Respiratory: Lungs CTA, respirations non labored Extremities: no deformity, no trauma Neurological: oriented x 4, LOC appropriate for age, CN II-XII intact, motor strength equal & normal bilaterally, speech normal Abdomen: Soft, Nontender, Non-distended, + BS Assessment/Plan 1. Restless leg (G25.81: Restless legs syndrome) Will increase ropinirole to 1mg. - Discussed how it makes her sleepy. Ordered: Body Mass Index (BMI) documented 3008F Current tobacco non-user 1036F Depression Screening Negative 3352F Influenza immunization administered or previously received 4274F Most recent diastolic blood pressure 80-89 mm Hg 3079F Patient screen for fall risk: no falls in last year or 1 fall with no injury in last year 1101F Systolic BP <130 mm Hg (Most Recent) 3074F 2. Primary insomnia (F51.01: Primary insomnia) - Doing well. - NO issues 3. Panic attacks (F41.0: Panic disorder [episodic paroxysmal anxiety]) - Will try xanax 4. BMI 23.0-23.9, adult (Z68.23: Body mass index [BMI] 23.0-23.9, adult) - BMI education given Ordered: Body Mass Index (BMI) documented 3008F Current tobacco non-user 1036F Depression Screening Negative 3352F Influenza immunization administered or previously received 4274F Most recent diastolic blood pressure 80-89 mm Hg 3079F Patient screen for fall risk: no falls in last year or 1 fall with no injury in last year 1101F Systolic BP <130 mm Hg (Most Recent) 3074F 5. Nonsmoker (Z78.9: Other specified health status) - Please continue to not smoke Ordered: Body Mass Index (BMI) documented 3008F Current tobacco non-user 1036F Depression Screening Negative 3352F Influenza immunization administered or previously received 4274F Most recent diastolic blood pressure 80-89 mm Hg 3079F Patient screen for fall risk: no falls in last year or 1 fall with no injury in last year 1101F Systolic BP <130 mm Hg (Most Recent) 3074F 6. Sciatic pain (M54.30: Sciatica, unspecified side) - Baclofen and Eva will see today - Possible PT Orders: alprazolam, 0.5 mg = 1 tab(s), Oral, TID, PRN for anxiety, # 60 tab(s), Refills(s) 0, Pharmacy: [facility], 168, cm, 09/09/23 10:08:00 EDT, Height/Length Dosing, 67.7, kg, 09/09/23 10:08:00 EDT, Weight Dosing ropinirole, 1 mg = 1 tab(s), Oral, Daily, 1 to 3 hours before bedtime, # 90 tab(s), Refills(s) 0, Pharmacy: [facility], 168, cm, 09/09/23 10:08:00 EDT, Height/Length Dosing, 67.7, kg, 09/09/23 10:08:00 EDT, Weight Dosing Follow-up No qualifying data available Problem List/Past Medical History Ongoing BMI 26.0-26.9,adult COVID-19 Depression Dizziness Frequent headaches History of urethral stricture Hot flashes Hypertension Insomnia Microscopic hematuria Panic attacks Postinfective urethral stricture in female Restless leg Sciatic pain SK (seborrheic keratosis) Urge incontinence Urinary urgency Historical No qualifying data Procedure/Surgical History Dilation of urethra (06/02/2023), Cystourethroscopy with dilation of urethral stricture (11/11/2022), Cystourethroscopy with dilation of urethral stricture (10/26/2019), Appendectomy, Colonoscopy, Hysterectomy, Tonsillectomy. Medications estradiol 0.1 mg/g Vag Crm, 1 gm, Vaginal, qWeek, 6 refills hydrochlorothiazide 25 mg Tab, 25 mg= 1 tab(s), Oral, Daily, 1 refills, Not taking: ran out not sure she needs it ibuprofen, 200 mg, BID, PRN latanoprost ophthalmic, See Instructions ropinirole 1 mg Tab, 1 mg= 1 tab(s), Oral, Daily venlafaxine 150 mg Cap-ER, 150 mg= 1 cap(s), Oral, Daily venlafaxine 75 mg Cap-ER, 75 mg= 1 cap(s), Oral, Daily verapamil 180 mg Cap-ER, See Instructions Xanax 0.5 mg Tab, 0.5 mg= 1 tab(s), Oral, TID, PRN Allergies Latex (Itching, Rash) sulfa drugs (Hyper) Social History Alcohol Current, Wine, Liquor, 1-2 times pe (more content not included)... Normal [facility] Comment on above: Result Comment: Elec tronically Signed By: Scotty CHAVARRIA, Shailesh Prado.br\Date and Time Signed: 09/09/23 10:33 EDT Ambulatory Visit Summaryon 0 08-05-2023 Ambulatory Visit Summary LISA LING :1945 Visit Date:08/05/2023 Ambulatory Visit Instructions Your Diagnosis Depression Restless leg Insomnia Hypertension BMI 24.0-24.9, adult Nonsmoker Your Care Team Attending Physician - Shailesh Fajardo MD Primary Care Physician - Shailesh Fajardo MD This Is Your Medications List acyclovir (acyclovir 200 mg Cap) biotin estradiol topical (estradiol 0.1 mg/g Vag Crm) hydrochlorothiazide (hydrochlorothiazide 25 mg Tab) ibuprofen latanoprost ophthalmic ropinirole (ropinirole 0.25 mg Tab) venlafaxine (venlafaxine 150 mg Cap-ER) venlafaxine (venlafaxine 75 mg Cap-ER) verapamil (verapamil 180 mg Cap-ER) Procedures Performed Dilation of urethra (06/02/2023), Cystourethroscopy with dilation of urethral stricture (11/11/2022), Cystourethroscopy with dilation of urethral stricture (10/26/2019), Appendectomy, Colonoscopy, Hysterectomy, Tonsillectomy. Discharge Vitals Temperature (Temporal Artery) 37.1 ?C Heart Rate (Peripheral) 90 Respiratory Rate 16 Blood Pressure 120/78 Height 168 cm Height 66 in Weight 67.8 kg Weight 149.16 lb BMI 24.02 What to do next Scheduled Follow-Up Appointments Friday 10:00 AM EDT With: Shailesh Fajardo MD Where: [facility] Invalid Interpretation Code [address] [place] [address]- \.br \ Friday 9:30 AM EDT \.br\ With: Cosme COLORADO MD\.br\ Where: [facility] Family Medicine Office/Clini c Noteon 08-05-2023 Family Medicine Office/Clinic Note HPI Staff Lisa is a 77 year old female presenting for 3 month follow up mood, HTN Patient is here for follow up on hypertension. How often are you checking your blood pressure? Doesnt check BP at home What are your average readings? N/A, Not checking at home Yearly BMP:?? _ Follow up for Mental Status: Medication adherence- Yes, takes medication as prescribed Medication refill needed: _ Suicidal thoughts-Not at this time Most recent PHQ9: 1 questions/concerns: trouble with low back pain and radiates down leg, feels she should go back to ortho needs refills of her venlafaxine 150 and 75 and hctz and verapamil History of Present Illness - Here for follow up. - Anxiety is better. - HTN is better and he needs refills. - Having RLS which has worsened. - States her anxiety is about her legs and sleeping. Review of Systems PHQ Score Initial Depression Screen Score: 0 SCORE Physical Exam Vitals & Measurements T: 37.1 ?C(Temporal Artery) HR: 90(Peripheral) RR: 16 BP: 120/78 SpO2: 96% HT: 66 in HT: 168 cm WT: 67.8 kg WT: 149.16 lb BMI: 24.02 General: alert, no acute distress ENMT: oral mucosa moist, Cardiovascular: regular rate and rhythm, normal peripheral perfusion Respiratory: Lungs CTA, respirations non labored Extremities: no deformity, no trauma Neurological: oriented x 4, LOC appropriate for age, CN II-XII intact, motor strength equal & normal bilaterally, speech normal Abdomen: Soft, Nontender, Non-distended, + BS Assessment/Plan 1. Depression (F32.A: Depression, unspecified) - Well-controlled at this time. Patient needs refills on medication. Patient is tolerating medication as before. Ordered: Body Mass Index (BMI) documented 3008F Current tobacco non-user 1036F Depression Screening Negative 3352F Influenza immunization administered or previously received 4274F Most recent diastolic blood pressure <80 mm Hg 3078F Patient screen for fall risk: no falls in last year or 1 fall with no injury in last year 1101F Systolic BP <130 mm Hg (Most Recent) 3074F 2. Restless leg (G25.81: Restless legs syndrome) - Patient states she is resting more comfortably however patient is still having restless legs before going to bed. -Will increase medication. -Follow-up in 1 month. 3. Insomnia (G47.00: Insomnia, unspecified) - As above. 4. Hypertension (I10: Essential (primary) hypertension) - Well-controlled at this time. -No issues with medications. Ordered: Body Mass Index (BMI) documented 3008F Current tobacco non-user 1036F Depression Screening Negative 3352F Influenza immunization administered or previously received 4274F Most recent diastolic blood pressure <80 mm Hg 3078F Patient screen for fall risk: no falls in last year or 1 fall with no injury in last year 1101F Systolic BP <130 mm Hg (Most Recent) 3074F 5. BMI 24.0-24.9, adult (Z68.24: Body mass index [BMI] 24.0-24.9, adult) - BMI education uploaded. Ordered: Body Mass Index (BMI) documented 3008F Current tobacco non-user 1036F Depression Screening Negative 3352F Influenza immunization administered or previously received 4274F Most recent diastolic blood pressure <80 mm Hg 3078F Patient screen for fall risk: no falls in last year or 1 fall with no injury in last year 1101F Systolic BP <130 mm Hg (Most Recent) 3074F 6. Nonsmoker (Z78.9: Other specified health status) - Please continue not to smoke. Ordered: Body Mass Index (BMI) documented 3008F Current tobacco non-user 1036F Depression Screening Negative 3352F Influenza immunization administered or previously received 4274F Most recent diastolic blood pressure <80 mm Hg 3078F Patient screen for fall risk: no falls in last year or 1 fall with no injury in last year 1101F Systolic BP <130 mm Hg (Most Recent) 3074F Orders: ropinirole, 0.5 mg = 1 tab(s), Oral, Daily, 1 to 3 hours before bedtime, X 30 day(s), # 30 tab(s), Refills(s) 1, Pharmacy: [facility], 168, cm, 08/05/23 10:02:00 EDT, Height/Length Dosing, 67.8, kg, 08/05/23 10:02:00 EDT, Weight Dosing venlafaxine, 150 mg = 1 cap(s), Oral, Daily, # 90 cap(s), Refills(s) 0, Pharmacy: [facility], 168, cm, 08/05/23 10:02:00 EDT, Height/Length Dosing, 67.8, kg, 08/05/23 10:02:00 EDT, Weight Dosing venlafaxine, 75 mg = 1 cap(s), Oral, Daily, # 90 cap(s), Refills(s) 0, Pharmacy: [facility], 168, cm, 08/05/23 10:02:00 EDT, Height/Length Dosing, 67.8, kg, 08/05/23 10:02:00 EDT, Weight Dosing Follow-up No qualifying data available Patient Education BMI for Adults Problem List/Past Medical History Ongoing BMI 26.0-26.9,adult COVID-19 Depression Dizziness Frequent headaches History of urethral stricture Hot flashes Hypertension Insomnia Microscopic hematuria Postinfective urethral stricture in female Restless leg SK (seborrheic keratosis) Urge incontinence Urinary urgency Historical No qualifying data Procedure/Sebastian (more content not included)... Normal [facility] Comment on above: Result Comment: Elec tronically Signed By: Scotty CHAVARRIA, Shailesh Lopez\.br\Date and Time Signed: 08/05/23 10:24 EDT Patient Educationon 08-05-19 Patient Education Nutrition BMI for Adults What is BMI? Body mass index (BMI) is a number that is calculated from a person's weight and height. BMI can help estimate how much of a person's weight is composed of fat. BMI does not measure body fat directly. Rather, it is an alternative to procedures that directly measure body fat, which can be difficult and expensive. BMI can help identify people who may be at higher risk for certain medical problems. What are BMI measurements used for? BMI is used as a screening tool to identify possible weight problems. It helps determine whether a person is obese, overweight, a healthy weight, or underweight. BMI is useful for: ? Identifying a weight problem that may be related to a medical condition or may increase the risk for medical problems. ? Promoting changes, such as changes in diet and exercise, to help reach a healthy weight. BMI screening can be repeated to see if these changes are working. How is BMI calculated? BMI involves measuring your weight in relation to your height. Both height and weight are measured, and the BMI is calculated from those numbers. This can be done either in [place] or metric measurements. Note that charts and online BMI calculators are available to help you find your BMI quickly and easily without having to do these calculations yourself. To calculate your BMI in [place] measurements: 1. Measure your weight in pounds (lb). 2. Multiply the number of pounds by 703. ? For example, for a person who weighs 180 lb, multiply that number by 703, which equals 126,540. 3. Measure your height in inches. Then multiply that number by itself to get a measurement called inches squared. ? For example, for a person who is 70 inches tall, the inches squared measurement is 70 inches x 70 inches, which equals 4,900 inches squared. 4. Divide the total from step 2 (number of lb x 703) by the total from step 3 (inches squared): 126,540 ? 4,900 = 25.8. This is your BMI. To calculate your BMI in metric measurements: 1. Measure your weight in kilograms (kg). 2. Measure your height in meters (m). Then multiply that number by itself to get a measurement called meters squared. ? For example, for a person who is 1.75 m tall, the meters squared measurement is 1.75 m x 1.75 m, which is equal to 3.1 meters squared. 3. Divide the number of kilograms (your weight) by the meters squared number. In this example: 70 ? 3.1 = 22.6. This is your BMI. What do the results mean? BMI charts are used to identify whether you are underweight, normal weight, overweight, or obese. The following guidelines will be used: ? Underweight: BMI less than 18.5. ? Normal weight: BMI between 18.5 and 24.9. ? Overweight: BMI between 25 and 29.9. ? Obese: BMI of 30 or above. Keep these notes in mind: ? Weight includes both fat and muscle, so someone with a muscular build, such as an athlete, may have a BMI that is higher than 24.9. In cases like these, BMI is not an accurate measure of body fat. ? To determine if excess body fat is the cause of a BMI of 25 or higher, further assessments may need to be done by a health care provider. ? BMI is usually interpreted in the same way for men and women. Where to find more information For more information about BMI, including tools to quickly calculate your BMI, go to these websites: ? Centers for Disease Control and Prevention: www.cdc.gov ? [place] [employer]: www.heart.org ? National Heart, Lung, and Blood [place]: www.nhlbi.nih.gov Summary ? Body mass index (BMI) is a number that is calculated from a person's weight and height. ? BMI may help estimate how much of a person's weight is composed of fat. BMI can help identify those who may be at higher risk for certain medical problems. ? BMI can be measured using [place] measurements or metric measurements. ? BMI charts are used to identify whether you are underweight, normal weight, overweight, or obese. This information is not intended to replace advice given to you by your health care provider. Make sure you discuss any questions you have with your health care provider. Document Revised: 10/27/2019 Document Reviewed: 09/03/2019 [employer] Patient Education ? 2022 [employer]. Normal [facility] URINALYSISOrdered By: Shiv Guadalupe on 10-16-2022 Bacteria LM Ql (Urine sed) Trace /HPF Normal Trace/HPF [facility] UA Auto SS Bilirubin Ql (U) Negative (10/16/22 3:47 PM) Normal Negative [facility] UA Auto SS Clarity (U) SL CLOUDY Invalid Interpretation Code [facility] UA Auto SS Color (U) Yellow (10/16/22 3:47 PM) Normal Yellow [facility] UA Auto SS Epithelial cells.squamous LM.HPF (Urine sed) [#/Area] 5-8 /HPF Normal 0-2/HPF [facility] UA Aut o SS Glucose Test strip (U) [Mass/Vol] Negative (10/16/22 3:47 PM) Normal Negative [facility] UA Auto SS Hemoglobin Ql (U) 2+ *ABN* (10/16/22 3:47 PM) Invalid Interpretation Code Negative [facility] UA Auto SS Ketones (U) [Mass/Vol] Trace *NA* (10/16/22 3:47 PM) Invalid Interpretation Code Negative [facility] UA Auto SS [place].plasma/Lith[place] m.RBC (Bld) [Mass ratio] 0-3 /HPF Normal 0-3/HPF [facility] UA Auto SS Nitrite Ql (U) Negative (10/16/22 3:47 PM) Normal Negative [facility] UA Auto SS pH (U) 6.0 *NA* (10/16/22 3:47 PM) Invalid Interpretation Code 5.0 - 9.0 [facility] UA Auto SS Protein (U) [Mass/Vol] 1+ *ABN* (10/16/22 3:47 PM) Invalid Interpretation Code Negative [facility] UA Auto SS Specific gravity (U) [Rel density] 1.020 *NA* (10/16/22 3:47 PM) Invalid Interpretation Code 1.005 - 1.030 [facility] UA Auto SS UA Spec Desc Clean Catch (10/16/22 3:47 PM) Normal [facility] UA Auto SS Urobilinogen Qn (U) 1.9195205 {Fredy'U}/dL Normal 0.0 - 1.0 EU/dL [facility] UA Auto SS WBC Auto Ql (U) Negative (10/16/22 3:47 PM) Normal Negative [facility] UA Auto SS WBC casts LM.LPF (Urine sed) [#/Area] 0-3 (10/16/22 3:47 PM) Normal [facility] UA Auto SS WBC LM.HPF (Urine sed) [#/Area] 0-5 /HPF Normal 0-5/HPF [facility] UA Auto SS NM STRESS/REST MULTIon 06-12 NM STRESS/REST MULTI Patient: LISA LING Exam Date: 06/12/2022 : 1945 Gender:F Ordering : SHAIKH Gabriel MCMILLAN . Admission #: [id number] Family : Order #: [id number] CLICK HERE TO VIEW EXAM RADIOLOGY REPORT PROCEDURE: RADIONUCLIDE IMAGING STRESS/REST MULTI COMPARISON: None. INDICATIONS: Dyspnea TECHNIQUE: Exam Description: Stress/Rest one day protocol gated SPECT Rest Imagin.0 mCi Tc-99m Cardiolite IV on 06/12/2022 Stress Imaging 32.1 mCi Tc-99m Cardiolite IV on 06/12/2022 Exercise Protocol: Rene Heart Rate (bpm): Rest: 67 Max: 126 PMHR: 87 Blood Pressure: Rest: 136/88 Max: 202/108 Exercise Time: Minutes: 3 Seconds: 20 Stage Reached: Stage: 2 Mets 4.6 Symptoms: Rest and peak stress ECG findings were abnormal and the exercise portion of the study was abnormal per attending physician Dr. Zaragoza due to EKG changes, inferolateral ST segment downsloping. For more details please see separate cardiac stress test report. FINDINGS: QUALITY OF STUDY: Excellent. PERFUSION DEFECT: None. LOCATION: N/A SIZE: N/A. SEVERITY: N/A. TYPE: N/A. WALL MOTION: Normal. LV SIZE: Small. 47 mL. TID / TCD: None; 0.9 LVEF: Normal. Calculated EF 73%. SUMMARY: Myocardial perfusion imaging study is NORMAL. CONCLUSION: 1. Normal nuclear medicine myocardial perfusion scan. Dictated by: Bill Polk M.D. on 06/13/2022 at 14:33 Approved by: Bill Polk M.D. on 06/13/2022 at 14:36 Normal [facility] CBC AUTO DIFFon 05-27-2022 BASO # 0.0 103/ul Normal 0.0-0.1 [facility] Comment on above: Performed By: #### C BC #### [facility] [address] [address] [address] Milind Lee Basophils/100 WBC (Bld) 0.5 % Normal 0.2-2.0 [facility] Comment on above: Performed By: #### C BC #### [facility] [address] [place] [address] Dr. Milind Lee EO # 0.1 103/ul Normal 0.0-0.7 [facility] Comment on above: Performed By: #### C BC #### [facility] [address] [address] [address] Milind Lee Eosinophils/100 WBC (Bld) 1.4 % Normal 0.9-7.0 [facility] Comment on above: Performed By: #### C BC #### [facility] [address] [place] [address] Dr. Milind Lee Erythrocyte distribution width (RBC) [Ratio] 13.2 % Normal 11.0-15.0 [facility] Comment on above: Performed By: #### C BC #### [facility] [address] [place] [address] Dr. Milind Lee Hematocrit (Bld) [Volume fraction] 36.0 % Normal 36.0-48.0 [facility] Comment on above: Performed By: #### C BC #### [facility] [address] [place] [address] Dr. Milind Lee Hemoglobin (Bld) [Mass/Vol] 12.3 g/dL Normal 12.0-16.0 [facility] Comment on above: Performed By: #### C BC #### [facility] [address] [place] [address] Dr. Milind Lee IG # 0.02 10e3/ul Normal 0.00-0.03 [facility] Comment on above: Performed By: #### C BC #### [facility] [address] [place] [address] Dr. Milind Lee IG % 0.3 % Normal 0.0-0.5 [facility] Comment on above: Performed By: #### C BC #### [facility] [address] [place] [address] Dr. Milind Lee LYMPH # 1.9 103/ul Normal 1.2-3.8 [facility] Comment on above: Performed By: #### C BC #### [facility] [address] [place] [address] Dr. Milind Lee Lymphocytes/100 WBC (Bld) 25.1 % Normal 20.5-60.0 [facility] Comment on above: Performed By: #### C BC #### [facility] [address] [place] [address] Dr. Milnid Lee MANUAL DIFF REQ NO Normal [facility] Comment on above: Performed By: #### C BC #### [facility] [address] [place] [address] Dr. Milind Lee MCH (RBC) [Entitic mass] 30.4 pg Normal 26.7-34.0 [facility] Comment on above: Performed By: #### C BC #### [facility] [address] [place] [address] Dr. Milind Lee MCHC (RBC) [Mass/Vol] 34.2 g/dL Normal 29.9-35.2 [facility] Comment on above: Performed By: #### C BC #### [facility] [address] [place] [address] Dr. Milind Lee MCV (RBC) [Entitic vol] 89.1 fL Normal 81.0-99.0 [facility] Comment on above: Performed By: #### C BC #### [facility] [address] [address] [address] Milind Lee MONO # 0.7 103/ul Normal 0.3-0.8 [facility] Comment on above: Performed By: #### C BC #### [facility] [address] [place] [address] Dr. Milind Lee Monocytes/100 WBC (Bld) 9.7 % Normal 1.7-12.0 [facility] Comment on above: Performed By: #### C BC #### [facility] [address] [place] [address] Dr. Milind Lee NEUT # 4.8 103/ul Normal 1.4-6.5 [facility] Comment on above: Performed By: #### C BC #### [facility] [address] [place] [address] Dr. Milind Lee Neutrophils/100 WBC (Bld) 63.0 % Normal 43.0-75.0 [facility] Comment on above: Performed By: #### C BC #### [facility] [address] [place] [address] Dr. Milind Lee Platelet mean volume (Bld) [Entitic vol] 10.3 fL Normal 9.5-13.5 [facility] Comment on above: Performed By: #### C BC #### [facility] [address] [place] [address] Dr. Milind Lee PLT 226 103/ul Normal 150-450 [facility] Comment on above: Performed By: #### C BC #### [facility] [address] [place] [address] Dr. Milind Lee RBC 4.04 106/ul Critically low 4.20-5.40 [facility] Comment on above: Performed By: #### C BC #### [facility] [address] [place] [address] Dr. Milind Lee WBC 7.7 103/ul Normal 4.0-11.0 [facility] Comment on above: Performed By: #### C BC #### [facility] [address] [place] [address] Dr. Milind Lee GLYCOHEMOGLOBIN A1Con 2022 ADA RECOMMENDATION SEE BELOW Normal [facility] Comment on above: Result Comment: ADA RECOMMENDED LIMIT 4.0 - 6.0 ADA THERAPEUTIC TARGET < 7.0 ACTION SUGGESTED > 7.0 Performed By: #### D ATA1C #### [facility] [address] [address] [address] Milind Lee Glucose [Mass/Vol] 117 mg/dL Normal [facility] Comment on above: Performed By: #### D ATA1C #### [facility] [address] [address] [address] Milind Lee HbA1c (Bld) [Mass fraction] 5.7 % Normal 4.5-6.2 [facility] Comment on above: Performed By: #### D ATA1C #### [facility] [address] [address] [address] Milind Lee MG MAMM SCREEN 3D CELENA CADon 05-27-2022 MG MAMM SCREEN 3D CELENA CAD Patient: LISA LING Exam Date: 05/27/2022 : 1945 Gender:F Ordering : SHAIKH Gabriel MCMILLAN . Admission #: [id number] Family : Order #: [id number] CLICK HERE TO VIEW EXAM RADIOLOGY REPORT PROCEDURE: MAMMOGRAM SCREENING 3D BILATERAL CAD COMPARISON: MG MAMM SCREEN 3D CELENA CAD, 05/15/2021. MG MAMM SCREEN CELENA W CAD, 01/01/2018. MG MAMM SCREEN CELENA W CAD, 12/31/2016. DIGITIZED_MAMMO, 08/22/2005. INDICATIONS: Screening mammography Calculator Name NCI Breast Cancer Risk Assessment Tool 5 Year Breast Cancer Risk 1.60% Lifetime Breast Cancer Risk 3.20% Personal Breast Cancer No Personal Ovarian Cancer No Treatments None Family Cancers Sister with lung cancer at age 80; Sister with lung cancer at age 80; Father with colon cancer at age 78. LOCATION: [facility] BREAST COMPOSITION: Heterogeneously dense,which may obscure small masses. FINDINGS: DIAGNOSTIC CATEGORY 2--BENIGN FINDING: RIGHT BREAST: No significant suspicious finding. Scattered benign-appearing calcifications are present. No significant change has occurred. LEFT BREAST: No significant suspicious finding. Scattered benign-appearing calcifications are present. No significant change has occurred. RECOMMENDATIONS: ROUTINE MAMMOGRAM AND CLINICAL EVALUATION IN 12 MONTHS. PLEASE NOTE: A NORMAL MAMMOGRAM DOES NOT EXCLUDE THE POSSIBILITY OF BREAST CANCER. A CLINICALLY SUSPICIOUS PALPABLE LUMP SHOULD BE BIOPSIED. Dictated by: Bill Polk M.D. on 05/27/2022 at 11:54 Approved by: Bill Polk M.D. on 05/27/2022 at 11:59 Normal [facility] PROF 14(COMP METB)on 023 Albumin [Mass/Vol] 3.4 g/dL Normal 3.4-5.0 [facility] Comment on above: Performed By: #### C MP #### [facility] [address] [place] [address] Dr. Milind Lee Albumin/Globulin [Mass ratio] 0.8 {ratio} Normal [facility] Comment on above: Performed By: #### C MP #### [facility] [address] [place] [address] Dr. Milind Lee ALP [Catalytic activity/Vol] 107 U/L Normal 46-116 [facility] Comment on above: Performed By: #### C MP #### [facility] [address] [place] [address] Dr. Milind Lee ALT [Catalytic activity/Vol] 29 U/L Normal 14-59 [facility] Comment on above: Performed By: #### C MP #### [facility] [address] [place] [address] Dr. Milind Lee Anion gap [Moles/Vol] 11.4 mmol/L Normal [facility] Comment on above: Performed By: #### C MP #### [facility] [address] [place] [address] Dr. Milind Lee AST [Catalytic activity/Vol] 15 U/L Normal 15-37 [facility] Comment on above: Performed By: #### C MP #### [facility] [address] [place] [address] Dr. Milind Lee Bilirubin [Mass/Vol] 0.6 mg/dL Normal 0.2-1.0 [facility] Comment on above: Performed By: #### C MP #### [facility] [address] [address] [address] Milind Lee Calcium [Mass/Vol] 9.4 mg/dL Normal 8.5-10.1 [facility] Comment on above: Performed By: #### C MP #### [facility] [address] [address] [address] Milind Lee Chloride [Moles/Vol] 103 mmol/L Normal 98-107 [facility] Comment on above: Performed By: #### C MP #### [facility] [address] [address] [address] Milind Lee CO2 [Moles/Vol] 30.5 mmol/L Normal 21.0-32.0 [facility] Comment on above: Performed By: #### C MP #### [facility] [address] [address] [address] Milind Lee Creatinine [Mass/Vol] 1.05 mg/dL Critically high 0.55-1.02 [facility] Comment on above: Performed By: #### C MP #### [facility] [address] [address] [address] Milind Lee EGFR-AF HAITIAN >60 Normal >=60 [facility] Comment on above: Performed By: #### C MP #### [facility] [address] [place] [address] Dr. Milind Lee EGFR-NON AF HAITIAN 51 mL/min/1.73m2 Critically low >=60 [facility] Comment on above: Performed By: #### C MP #### [facility] [address] [address] [address] Milind Lee Globulin (S) [Mass/Vol] 4.2 g/dL Normal [facility] Comment on above: Performed By: #### C MP #### [facility] [address] [address] [address] Milind Lee Glucose [Mass/Vol] 100 mg/dL Normal 74-106 [facility] Comment on above: Performed By: #### C MP #### [facility] [address] [address] [address] Milind Lee Potassium [Moles/Vol] 3.9 mmol/L Normal 3.5-5.1 [facility] Comment on above: Performed By: #### C MP #### [facility] [address] [address] [address] Milind Lee Protein [Mass/Vol] 7.6 g/dL Normal 6.4-8.2 [facility] Comment on above: Performed By: #### C MP #### [facility] [address] [address] [address] Milind Lee Sodium [Moles/Vol] 141 mmol/L Normal 136-145 [facility] Comment on above: Performed By: #### C MP #### [facility] [address] [address] [address] Milind Lee Urea nitrogen [Mass/Vol] 29.0 mg/dL Critically high 7.0-18.0 [facility] Comment on above: Performed By: #### C MP #### [facility] [address] [address] [address] Milind Lee Urea nitrogen/Creatinine [Mass ratio] 27.6 mg/mg Normal [facility] Comment on above: Performed By: #### C MP #### [facility] [address] [address] [address] Milind Lee XR foot LT min 3V*on 023 XR foot LT min 3V* [facility] [place] [address] XRay Report Signed Patient: Lisa Ling MR#: [id number] : 1945 Acct:[id number] Age/Sex: 76 / F ADM Date: 05/24/22 Loc: XDUCLY Room: Type: [facility] Attending Dr: Raiza JOHNSON Copies to: ALEX Watkins Ordering Provider: ALEX Watkins Date of Service: 05/24/22 XR/XR foot LT min 3V*: LEFT FOOT/ANKLE PAIN ([id number]) XR/XR ankle LT min 3V*: LEFT FOOT/ANKLE PAIN LEFT ANKLE - 3 views, left foot 3 views CLINICAL HISTORY: Fall approximately 5 days ago twisting left foot and ankle. Pain since. COMPARISON: None FINDINGS: Left ankle: No focal soft tissue abnormality. Ankle mortise appears intact without acute bony process. There is Left foot: No focal soft tissue abnormality. No acute bony process is seen. Mild degenerative changes without bony erosions. XR/XR ankle LT min 3V* IMPRESSION: NO ACUTE BONY PROCESS. Impression dictated by: Segundo Kapadia Jr., Sonu05/24/2022 12:57 PM Dictation Location: [place] [address] Transcribed By: [facility] 05/24/22 1257 Dictated By: Segundo Kapadia Jr, DO 05/24/22 1256 Signed By: 05/24/22 1257 Normal [facility] US FADY DOP LEG LTon 02-14-20 22 US FADY DOP LEG LT Ultrasound venous duplex scan left lower extremity CLINICAL: Left lower extremity intermittent swelling. TECHNIQUE: Stringer-scale, color Doppler and Duplex examination of the left lower extremity was performed with and without provocative maneuvers. FINDINGS: Comparison: None Sonographic examination of the left lower extremity deep venous system to include the common femoral, superficial femoral and popliteal veins, demonstrates normal compressibility, color-flow, respiratory variation, and augmentation. The origin of the greater saphenous vein demonstrates normal compression, and there is normal color-flow in the proximal profunda femoral vein. Normal compression of the anterior tibial, posterior tibial and peroneal veins. There is normal compression of the small saphenous and greater saphenous vein in the calf. IMPRESSION: 1. No deep venous thrombosis in the left lower extremity. Electronically authenticated by: QUINTIN GLORIA Date: 2022-02-13 10:48 Normal [facility] PROF CHEM 8 (BAS METB)on Anion gap [Moles/Vol] 9.0 mmol/L Normal [facility] Comment on above: Performed By: #### B MP #### [facility] [address] [address] [address] Milind Lee Calcium [Mass/Vol] 9.2 mg/dL Normal 8.5-10.1 [facility] Comment on above: Performed By: #### B MP #### [facility] [address] [address] [address] Milind Lee Chloride [Moles/Vol] 104 mmol/L Normal 98-107 [facility] Comment on above: Performed By: #### B MP #### [facility] [address] [address] [address] Milind Lee CO2 [Moles/Vol] 30.5 mmol/L Normal 21.0-32.0 [facility] Comment on above: Performed By: #### B MP #### [facility] [address] [address] [address] Milind Lee Creatinine [Mass/Vol] 1.25 mg/dL Critically high 0.55-1.02 [facility] Comment on above: Performed By: #### B MP #### [facility] [address] [address] [address] Milind Lee EGFR-AF HAITIAN 51 mL/min/1.73m2 Critically low >=60 [facility] Comment on above: Performed By: #### B MP #### [facility] [address] [address] [address] Milind Lee EGFR-NON AF HAITIAN 42 mL/min/1.73m2 Critically low >=60 [facility] Comment on above: Performed By: #### B MP #### [facility] [address] [address] [address] Milind Lee Glucose [Mass/Vol] 110 mg/dL Critically high 74-106 [facility] Comment on above: Performed By: #### B MP #### [facility] [address] [address] [address] Milind Lee Potassium [Moles/Vol] 3.5 mmol/L Normal 3.5-5.1 [facility] Comment on above: Performed By: #### B MP #### [facility] [address] [address] [address] Milind Lee Sodium [Moles/Vol] 140 mmol/L Normal 136-145 [facility] Comment on above: Performed By: #### B MP #### [facility] [address] [address] [address] Milind Lee Urea nitrogen [Mass/Vol] 29.0 mg/dL Critically high 7.0-18.0 [facility] Comment on above: Performed By: #### B MP #### [facility] [address] [place] [address] Dr. Milind Lee Urea nitrogen/Creatinine [Mass ratio] 23.2 mg/mg Normal [facility] Comment on above: Performed By: #### B MP #### [facility] [address] [place] [address] Dr. Milind Lee PROF CHEM 8 (BAS METB)on Anion gap [Moles/Vol] 13.4 mmol/L Normal [facility] Comment on above: Performed By: #### B MP #### [facility] [address] [place] [address] Dr. Milind Lee Calcium [Mass/Vol] 8.8 mg/dL Normal 8.5-10.1 [facility] Comment on above: Performed By: #### B MP #### [facility] [address] [place] [address] Dr. Milind Lee Chloride [Moles/Vol] 103 mmol/L Normal 98-107 [facility] Comment on above: Performed By: #### B MP #### [facility] [address] [place] [address] Dr. Milind Lee CO2 [Moles/Vol] 27.9 mmol/L Normal 21.0-32.0 [facility] Comment on above: Performed By: #### B MP #### [facility] [address] [place] [address] Dr. Milind Lee Creatinine [Mass/Vol] 1.22 mg/dL Critically high 0.55-1.02 [facility] Comment on above: Performed By: #### B MP #### [facility] [address] [place] [address] Dr. Milind Lee EGFR-AF HAITIAN 52 mL/min/1.73m2 Critically low >=60 [facility] Comment on above: Performed By: #### B MP #### [facility] [address] [address] [address] Milind Lee EGFR-NON AF HAITIAN 43 mL/min/1.73m2 Critically low >=60 [facility] Comment on above: Performed By: #### B MP #### [facility] [address] [address] [address] Milind Lee Glucose [Mass/Vol] 104 mg/dL Normal 74-106 [facility] Comment on above: Performed By: #### B MP #### [facility] [address] [address] [address] Milind Lee Potassium [Moles/Vol] 4.3 mmol/L Normal 3.5-5.1 [facility] Comment on above: Performed By: #### B MP #### [facility] [address] [address] [address] Milind Lee Sodium [Moles/Vol] 140 mmol/L Normal 136-145 [facility] Comment on above: Performed By: #### B MP #### [facility] [address] [address] [address] Milind Lee Urea nitrogen [Mass/Vol] 26.0 mg/dL Critically high 7.0-18.0 [facility] Comment on above: Performed By: #### B MP #### [facility] [address] [address] [address] Milind Lee Urea nitrogen/Creatinine [Mass ratio] 21.3 mg/mg Normal [facility] Comment on above: Performed By: #### B MP #### [facility] [address] [address] [address] Milind Lee Vital Signs Date Time Vital Sign Value Performing Clinician Facility 10-30-2023 09:29-0400 Body height 167.6 cm [facility] DO Work Phone: [facility] 10-30-2023 09:29-0400 Body mass index (BMI) [Ratio] 23.57 kg/m2 [facility] DO Work Phone: [facility] 10-30-2023 09:29-0400 Body weight 66.22 kg Vianey Velasquez DO Work Phone: [facility] 06-02-2023 09:34-0400 Blood Pressure Location Cosmejames [place] [facility] 06-02-2023 09:34-0400 Body temperature 98.6 [degF] [place]me [place] [facility] 06-02-2023 09:34-0400 Diastolic blood pressure 68 mm[Hg] [place] [facility] 06-02-2023 09:34-0400 Heart rate 60 /min [place] [facility] 06-02-2023 09:34-0400 Respiratory rate 16 /min [place] [facility] 06-02-2023 09:34-0400 Systolic blood pressure 123 mm[Hg] [place] [facility] 06-29-2021 09:08-0400 Blood Pressure Location [place] [facility] 06-29-2021 09:08-0400 Diastolic blood pressure 68 mm[Hg] [place]me [place] [facility] 06-29-2021 09:08-0400 Heart rate 89 /min [place] [facility] 06-29-2021 09:08-0400 Respiratory rate 16 /min [place] [facility] 06-29-2021 09:08-0400 Systolic blood pressure 107 mm[Hg] Cosme STANISLAV [facility] Encounters Encounter Date Encounter Type Care Provider Facility Start: 02-16-2025 ambulatory Shailesh Fajardo Facility :[facility] Start: 08-31-2024 ambulatory MD Shailesh Fajardo [facility] ity:[facility] Start: 06-04-2024 End: 06-04-2024 ambulatory Cosme [place] Facility: [place] Start: 06-01-2024 End: 06-01-2024 ambulatory MD Shailesh Fajardo Facility: [facility] Start: 05-31-2024 End: 05-31-2024 ambulatory MD Shailesh Fajardo Facility:[facility] [place] Start: 04-06-2024 End: 04-06-2024 ambulatory MD Shailesh Fajardo Facility:[facility] Start: 03-04-2024 End: 03-04-2024 ambulatory Shailesh Fajardo Facility: [facility] [place] Start: 02-20-2024 End: 02-20-2024 Lab Drop off Shailesh Fajardo [facility] Start: 02-20-2024 End: 02-20-2024 ambulatory MD Shailesh Fajardo Facility:[facility] Start: 02-16-2024 End: 02-16-2024 ambulatory Shailesh Fajardo Facility: [facility] Start: 12-18-2023 End: 12-18-2023 Bamboo flowsheet Vianey Velasquez DO Work Phone: [facility] Start: 12-18-2023 End: 12-18-2023 Bamboo flowsheet Vianey Velasquez DO Work Phone: [facility] Start: 12-18-2023 End: 12-18-2023 ambulatory VIANEY VELASQUEZ Not Available Start: 12-18-2023 End: 12-18-2023 Office outpatient visit 25 minutes Vianey Velasquez DO Work Phone: [facility] Comment on above: Right knee pain, uns pecified chronicity (Primary Dx); Arthritis of knee Start: 11-10-2023 ambulatory Shailesh Fajardo Facility :[facility] Start: 10-30-2023 End: 10-30-2023 Bamboo flowsheet Vianey Velasquez DO Work Phone: [facility] Start: 10-30-2023 End: 10-30-2023 Bamboo flowsheet Vianey Velasquez DO Work Phone: [facility] Start: 10-30-2023 End: 10-30-2023 Office outpatient visit 15 minutes Vianey Velasquez DO Work Phone: [facility] Comment on above: Sciatica of left teresa e (Primary Dx); Lumbar herniated disc; Primary osteoarthritis of left hip; Left knee pain, unspecified chronicity Start: 10-30-2023 End: 10-30-2023 ambulatory VIANEY VELASQUEZ Not Available Start: 10-28-2023 End: 10-28-2023 ambulatory VIANEY VELASQUEZ Not Available Start: 10-16-2023 End: 10-16-2023 Bamboo flowsheet Vianey Velasquez DO Work Phone: [facility] Start: 10-16-2023 End: 10-16-2023 Bamboo flowsheet Vianey Velasquez DO Work Phone: [facility] Start: 10-16-2023 End: 10-16-2023 Office outpatient visit 15 minutes Vianey Velasquez DO Work Phone: [facility] Comment on above: Left hip pain (Prima ry Dx); Primary osteoarthritis of left hip; Sciatica of left side Start: 10-16-2023 End: 10-16-2023 ambulatory VIANEY VELASQUEZ Not Available Start: 09-23-2023 End: 09-23-2023 ambulatory VIANEY VELASQUEZ Not Available Start: 09-09-2023 End: 09-09-2023 ambulatory VIANEY Margaret EVA Not Available Start: 09-09-2023 End: 09-09-2023 ambulatory Shailesh Fajardo Facility:[facility] Start: 08-05-2023 End: 08-05-2023 ambulatory Shaileshreyna Fajardo Facility:[facility] Start: 06-02-2023 End: 06-02-2023 Patient encounter procedure Cosme [place] [facility] Start: 03-18-2023 End: 03-18-2023 ambulatory VIANEY VELASQUEZ Not Available Start: 01-28-2023 End: 01-28-2023 ambulatory VIANEY VELASQUEZ Not Available Start: 01-21-2023 End: 01-21-2023 ambulatory VIANEY VELASQUEZ Not Available Start: 01-14-2023 End: 01-14-2023 ambulatory AYDE ESPINAL Not Available Start: 01-02-2023 End: 01-02-2023 ambulatory AYDE ESPINAL Not Available Start: 10-16-2022 End: 10-16-2022 Lab Drop off BAKARI FAM [facility] Start: 08-06-2022 End: 08-06-2022 Patient encounter procedure BAKARI FAM [facility] Start: 06-12-2022 End: 06-13-[address] BILL POLK Facility:[facility] Start: 05-27-2022 End: 05-28-2022 ambulatory SHAIKH Eliseo MCMILLAN Facility:[facility] Start: 05-24-2022 End: 05-24-2022 ambulatory Raiza Huitron Facility:[facility] Start: 05-24-2022 End: 05-24-2022 ambulatory PHYSICIAN DEREK SAWYER [facility] Work Phone: Start: 05-24-2022 End: 05-24-2022 Patient encounter procedure PHYSICIAN NO FAMILY [facility] Work Phone: Start: 02-13-2022 End: 02-14-2022 ambulatory SHAIKH Eliseo MCMILLAN Facility:[facility] Start: 10-31-2021 End: 11-01-2021 ambulatory SHAIKH Eliseo MCMILLAN Facility:[facility] Start: 08-14-2021 End: 08-15-2021 ambulatory SHAIKH Eliseo MCMILLAN Facility:[facility] Start: 06-29-2021 End: 06-29-2021 Patient encounter procedure [place]me [place] [facility] Procedures Date Procedure Procedure Detail Performing Clinician Start: 12-18-2023 Arthrocentesis aspir &/inj major jt/bursa w/o us Vianey Velasquez DO Work Phone: Start: 06-02-2023 Dilation of urethra Kathleen [place] Start: 11-11-2022 Cystourethroscopy wi th dilation of urethral stricture Cosme [place] Start: 05-24-2022 X-ray of left ankle PHY SICIAN NO FAMILY Start: 05-24-2022 X-ray of left foot PHYS ICIAN NO FAMILY Start: 10-26-2019 Cystourethroscopy wi th dilation of urethral stricture [place] Appendectomy Cosme [place] Colonoscopy [place]me [place] Hysterectomy [place]me [place] Tonsillectomy Cosme [place] Plan of Treatment Date Care Activity Detail Author Start: 10-30-2023 End: 10-30-2023 Patient encounter procedure 10/30/2023 9:30 AM EDT Office Visit [facility] [address] [place] [address] Vianey Velasquez DO [address] [place] [address] Sciatica of left side (Primary Dx); Lumbar herniated disc [facility] Comment on above: Sciatica of left teresa e (Primary Dx); Lumbar herniated disc Start: 10-19-2023 Influenza vaccination Influenza Vacc ine (#1) [facility] Start: 10-16-2023 End: 10-15-2024 MR Lumbar spine WO contrast MR lumbar spine wo contrast Imaging Routine Sciatica of left side Expected: 10/16/2023 (Approximate), Expires: 10/15/2024 [facility] Work Phone: Comment on above: Expected: 10/16/2023 (Approximate), Expires: 10/15/2024 Start: 10-16-2023 End: 10-16-2023 Patient encounter procedure 10/16/2023 10:45 AM EDT Office Visit [facility] [address] [place] [phone] Vianey Velasquez DO [address] [facility] [address] [place] [address] Left hip pain (Primary Dx); Primary osteoarthritis of left hip [facility] Comment on above: Left hip pain (Prima ry Dx); Primary osteoarthritis of left hip Start: 11-21-2017 Pneumococcal Vaccine : 65+ Years (2 of 2 - PPSV23 or PCV20) Pneumococcal Vaccine: 65+ Years (2 of 2 - PPSV23 or PCV20) [facility] Immunizations Immunization Date Immunization Notes Care Provider Fa cility 10-24-2023 influenza virus vaccine, unspecified formulation Shailesh Fajardo [facility] 11-05-2022 influenza virus vaccine, unspecified formulation Cosme [place] [facility] 11-29-2021 influenza virus vaccine, unspecified formulation BAKARI FAM [facility] 10-13-2022 SARS-CoV-2 (COVID-19 ) [id number] BAKARI FAM [facility] 06-21-2021 SARS-CoV-2 mRNA (wfzrmuhrkuz-jhgt-qfot ose) vaccine BAKARI FAM [facility] 12-06-2020 SARS-CoV-2 (COVID-19 ) mRNA BNT-162b2 vax BAKARI FAM [facility] 10-02-2020 influenza virus vaccine, unspecified formulation BAKARI FAM [facility] 10-02-2020 Influenza, High-dose Seasonal, Quadrivalent, Preservative Free Vianey Velasquez DO Work Phone: [facility] 04-12-2020 SARS-CoV-2 (COVID-19 ) mRNA BNT-162b2 vax BAKARI FAM [facility] Comment on above: Result Comment: 2022: [id number] 03-17-2020 SARS-CoV-2 (COVID-19 ) mRNA BNT-162b2 vax BAKARI FAM [facility] Comment on above: Result Comment: 2022: [id number] 02-18-2020 SARS-CoV-2 (COVID-19 ) mRNA BNT-162b2 vax [place] [facility] 12-20-2019 zoster vaccine recombinant BAKARI FAM [facility] 11-30-2018 influenza virus vaccine, unspecified formulation BAKARI FAM [facility] 11-13-2017 influenza virus vaccine, unspecified formulation BAKARI FAM [facility] 11-21-2016 influenza virus vaccine, unspecified formulation BAKARI FAM [facility] 11-21-2016 pneumococcal conjuga te vaccine, 13 valent BAKARI FAM [facility] 04-23-2016 influenza, injectabl e, quadrivalent, preservative free Vianey Velasquez DO Work Phone: [facility] 12-05-2014 influenza virus vaccine, unspecified formulation BAKARI FAM [facility] Payers Date Payer Category Payer Medicare [employer] U[employer] MEDICARE ADVANTAGE [id number] 2022-Present [address] [address] [place] [address] [id number] 2022 Medicare (Managed Care) [facility] MED[facility] [id number] 2022 Private Health Insurance [id number] 1959 Medicare [id number] 1959 Medicare [id number] 1959 Self-pay [id number] 1945 Unknown [id number] 2.16.840.1.474994.3.579.2. 593 1945 Unknown [id number] 2.16.840.1.159581.3.579.2. 593 1945 Unknown [id number] 2.16.840.1.700344.3.579.2. 593 1945 Unknown [id number] 2.16.840.1.492165.3.579.2. 593 1945 Unknown [id number] 2.16.840.1.977095.3.579.2. 593 1945 Unknown [id number] 2.16.840.1.151643.3.579.2. 1259 1945 Unknown [id number] 2.16.840.1.254299.3.579.2. 125 1945 Unknown [id number] 2.16.840.1.932695.3.579.2. 1259 1945 Unknown [id number] 2.16.840.1.937481.3.579.2. 125 1945 Unknown [id number] 2.16.840.1.429854.3.579.2. 1259 1945 Unknown [id number] 2.16.840.1.466966.3.579.2. 1259 1945 Unknown [id number] 2.16.840.1.071129.3.579.2. 1259 1945 Unknown [id number] 2.16.840.1.996361.3.579.2. 125 1945 Unknown [id number] 2.16.840.1.450053.3.579.2. 1259 1945 Unknown [id number] 2.16.840.1.561376.3.579.2. 125 1945 Unknown [id number] 2.16.840.1.973422.3.579.2. 1259 1945 Unknown [id number] 2.16.840.1.990909.3.579.2. 1259 1945 Unknown [id number] 2.16.840.1.574412.3.579.2. 1259 1945 Unknown [id number] 2.16.840.1.798392.3.579.2. 72 1945 Unknown [id number] 2.16.840.1.396992.3.579.2. 72 1945 Unknown [id number] 2.16.840.1.028685.3.579.2. 1945 Unknown [id number] 2.16.840.1.416676.3.579.2. 72 1945 Unknown [id number] 2.16.840.1.798877.3.579.2. 72 1945 Unknown [id number] 2.16.840.1.513738.3.579.2. 72 1945 Unknown [id number] 2.16.840.1.885399.3.579.2. 72 1945 Unknown [id number] 2.16.840.1.916639.3.579.2. 72 1945 Unknown [id number] 2.16.840.1.565071.3.579.2. 72 1945 Unknown [id number] 2.16.840.1.895441.3.579.2. 72 1945 Unknown [id number] 2.16.840.1.239054.3.579.2. 72 1945 Unknown [id number] 2.16.840.1.672779.3.579.2. 72 1945 Unknown [id number] 2.16.840.1.480908.3.579.2. 727 Private Health Insurance [employer] [facility] M [id number] Unknown [id number] 2.16.840.1.163882.3.579.2. 531 Unknown [id number] 2.16.840.1.137890.3.579.2. 593 Social History Date Type Detail Facility Start: 10-13-2020 End: 02-16-2024 Tobacco smoking status Never smoked tobacco (finding) [facility] Comment on above: denies Tobacco smoking status Never [facility] Comment on above: denies Start: 09-09-2023 End: 10-30-2023 Sex Assigned At Female [facility] Start: 1945 Sex Assigned At Female F [facility] Start: 07-26-2022 Tobacco use and exposure Smokeless tobacco non-user [facility] Start: 09-09-2023 End: 10-30-2023 Alcoholic beverage intake Ex-drinker (finding) [facility] Start: 09-09-2023 End: 10-30-2023 History of Social function [facility] Start: 01-17-2023 Alcohol Comment 1-2 drinks on a typical day [facility] Start: 1945 Sex assigned at Not on file [facility] Functional Status Date Assessment Result Facility 06-02-2023 Functional Status N/A [facility] Clinical Notes 06-29-2021 to 05-31-2024 Vianey Velasquez, DO - 12/18/2023 11:30 AM Roseanna Velasquez, DO - 10/30/2023 9:30 AM Roseanna Velasquez, DO - 10/16/2023 10:45 AM EDT Note Date & Type Note Facility 05-31-2024 Note Patient Education Cardiovascular Hypertension, Adult High blood pressure (hypertension) is when the force of blood pumping through the arteries is too strong. The arteries are the blood vessels that carry blood from the heart throughout the body. Hypertension forces the heart to work harder to pump blood and may cause arteries to become narrow or stiff. Untreated or uncontrolled hypertension can lead to a heart attack, heart failure, a stroke, kidney disease, and other problems. A blood pressure reading consists of a higher number over a lower number. Ideally, your blood pressure should be below 120/80. The first ( top ) number is called the systolic pressure. It is a measure of the pressure in your arteries as your heart beats. The second ( bottom ) number is called the diastolic pressure. It is a measure of the pressure in your arteries as the heart relaxes. What are the causes? The exact cause of this condition is not known. There are some conditions that result in high blood pressure. What increases the risk? Certain factors may make you more likely to develop high blood pressure. Some of these risk factors are under your control, including: ??? Smoking. ??? Not getting enough exercise or physical activity. ??? Being overweight. ??? Having too much fat, sugar, calories, or salt (sodium) in your diet. ??? Drinking too much alcohol. Other risk factors include: ??? Having a personal history of heart disease, diabetes, high cholesterol, or kidney disease. ??? Stress. ??? Having a family history of high blood pressure and high cholesterol. ??? Having obstructive sleep apnea. ??? Age. The risk increases with age. What are the signs or symptoms? High blood pressure may not cause symptoms. Very high blood pressure (hypertensive crisis) may cause: ??? Headache. ??? Fast or irregular heartbeats (palpitations). ??? Shortness of breath. ??? Nosebleed. ??? Nausea and vomiting. ??? Vision changes. ??? Severe chest pain, dizziness, and seizures. How is this diagnosed? This condition is diagnosed by measuring your blood pressure while you are seated, with your arm resting on a flat surface, your legs uncrossed, and your feet flat on the floor. The cuff of the blood pressure monitor will be placed directly against the skin of your upper arm at the level of your heart. Blood pressure should be measured at least twice using the same arm. Certain conditions can cause a difference in blood pressure between your right and left arms. If you have a high blood pressure reading during one visit or you have normal blood pressure with other risk factors, you may be asked to: ??? Return on a different day to have your blood pressure checked again. ??? Monitor your blood pressure at home for 1 week or longer. If you are diagnosed with hypertension, you may have other blood or imaging tests to help your health care provider understand your overall risk for other conditions. How is this treated? This condition is treated by making healthy lifestyle changes, such as eating healthy foods, exercising more, and reducing your alcohol intake. You may be referred for counseling on a healthy diet and physical activity. Your health care provider may prescribe medicine if lifestyle changes are not enough to get your blood pressure under control and if: ??? Your systolic blood pressure is above 130. ??? Your diastolic blood pressure is above 80. Your personal target blood pressure may vary depending on your medical conditions, your age, and other factors. Follow these instructions at home: Eating and drinking ??? Eat a diet that is high in fiber and potassium, and low in sodium, added sugar, and fat. An example of this eating plan is called the DASH diet. DASH stands for Dietary Approaches to Stop Hypertension. To eat this way: ? Eat plenty of fresh fruits and vegetables. Try to fill one half of your plate at each meal with fruits and vegetables. ? Eat whole grains, such as whole-wheat pasta, brown rice, or whole-grain bread. Fill about one fourth of your plate with whole grains. ? Eat or drink low-fat dairy products, such as skim milk or low-fat yogurt. ? Avoid fatty cuts of meat, processed or cured meats, and poultry with skin. Fill about one fourth of your plate with lean proteins, such as fish, chicken without skin, beans, eggs, or tofu. ? Avoid pre-made and processed foods. These tend to be higher in sodium, added sugar, and fat. ??? Reduce your daily sodium intake. Many people with hypertension should eat less than 1,500 mg of sodium a day. ??? Do not drink alcohol if: ? Your health care provider tells you not to drink. ? You are , may be , or are planning to become . ??? If you drink alcohol: ? Limit how much you have to: ? 0?1 drink a day for women. ? 0?2 drinks a day for men. ? Know how much alcohol is in your drink. In the [place] one drink equals one 12 oz bottle (more content not included)... [facility] 02-16-2024 Note Patient Education Emergency Medicine Heart Attack A heart attack occurs when blood and oxygen supply to the heart is cut off. A heart attack can cause damage to the heart that cannot be fixed. A heart attack is also called a myocardial infarction, or [place]. If you think you are having a heart attack, do not wait to see if the symptoms will go away. Get medical help right away. What are the causes? This condition may be caused by: ??? A fatty substance (plaque) in the blood vessels (arteries). This can block the flow of blood to the heart. ??? A blood clot in the blood vessels that go to the heart. The blood clot blocks blood flow. ??? An abnormal heartbeat. ??? Some diseases, such as problems in red blood cells (anemia)orproblems in breathing (respiratory failure). ??? Tightening (spasm) of a blood vessel that cuts off blood to the heart. ??? A tear in a blood vessel of the heart. Other causes may include: ??? Using drugs such as cocaine or methamphetamine. ??? Low blood pressure. What increases the risk? Aging. The risk gets higher as you get older. ??? Having a personal or family history of chest pain, heart attack, stroke, or narrowing of the arteries in the legs, arms, head, or stomach (peripheral vascular disease). ??? Having taken chemotherapy or immune-suppressing medicines. ??? Being male. ??? Being overweight or obese. ??? Having any of these conditions: ? High blood pressure. ? High cholesterol. ? Diabetes. ??? Making lifestyle choices such as: ? Drinking too much alcohol. ? Not getting regular exercise. ? Smoking. What are the signs or symptoms? Chest pain. It may feel like: ? Crushing or squeezing. ? Tightness, pressure, fullness, or heaviness. ??? Pain in the arm, neck, jaw, back, or upper body. ??? Heartburn. ??? Upset stomach (indigestion). ??? Shortness of breath. ??? Feeling like you may vomit (nauseous). ??? Cold sweats. ??? Sudden light-headedness, dizziness, or passing out. ??? Feeling tired. How is this treated? A heart attack must be treated as soon as possible. Treatment may include: ??? Medicines to: ? Break up or dissolve blood clots. ? Thin your blood and help prevent blood clots. ? Treat blood pressure. ? Improve blood flow to the heart. ? Reduce pain. ? Reduce cholesterol. ??? Procedures to widen a blocked artery and keep it open. ??? Open heart surgery. ??? Making your heart strong again (cardiac rehabilitation) through exercise, education, and counseling. Follow these instructions at home: Medicines ??? Take [id number]-[id number] and prescription medicines only as told by your doctor. ??? Do not take these medicines unless your doctor says it is okay: ? NSAIDs, such as ibuprofen, naproxen, or celecoxib. ? Any vitamins or supplements. ? Hormone replacement therapy that has estrogen with or without progestin. ??? If you are taking blood thinners: ? Talk with your doctor before taking any medicines that have aspirin or NSAIDs, such as ibuprofen. ? Take medicines exactly as told. Take them at the same time each day. ? Avoid doing things that could hurt or bruise you. Take action to prevent falls. ? Wear an alert bracelet or carry a card that shows you are taking blood thinners. Lifestyle ??? Do not smoke or use any products that contain nicotine or tobacco. If you need help quitting, ask your doctor. ??? Avoid secondhand smoke. ??? Exercise regularly. Ask your doctor about a cardiac rehab program. ??? Eat heart-healthy foods. Your doctor will tell you what foods to eat. ??? Stay at a healthy weight. ??? Learn ways to lower your stress level. ??? Do not use illegal drugs. Alcohol use ??? Do not drink alcohol if: ? Your doctor tells you not to drink. ? You are , may be , or are planning to become . ??? If you drink alcohol: ? Limit how much you have to: ? 0?1 drink a day for women. ? 0?2 drinks a day for men. ? Know how much alcohol is in your drink. In the [place] one drink equals one 12 oz bottle of beer (355 mL), one 5 oz glass of wine (148 mL), or one 1? oz glass of hard liquor (44 mL). General instructions ??? Work with your doctor to treat other problems you may have, such as diabetes or high blood pressure. ??? Get screened for depression. Get treatment if needed. ??? Keep your vaccines up to date. Get the flu shot (influenza vaccine) every year. ??? Keep all follow-up visits. Contact a doctor if: ??? You feel very sad. ??? You have trouble doing your daily activities. ??? You get light-headed or dizzy. Get help right away if: ??? You have sudden, unexplained discomfort in your chest, arms, back, neck, jaw, or upper body. ??? You have shortness of breath. ??? You have sudden sweating or clammy skin. ??? You feel like you may vomit or you vomit. ??? You fe (more content not included)... [facility] 12-18-2023 History of Present illness Narrative Associated Order(s): L Inj/Asp: R knee Post-Procedure Diagnose(s): Arthritis of knee Images from the original note were not included. HISTORY OF PRESENT ILLNESS: Lisa Rojas [place] is an 78 y.o. @ female. Chief complaint RT knee pain Established pt: Right knee, last knee eval 01/09/21 Right knee intermittent pain x Oct 2020 and worse x 1 month (early Nov), denies injury. Pain over the knee and radiates down vieyra to ankle and up into the groin. Pain when driving, prolonged walking and bending. Can be sharp and aching. Admits limping. Denies waking at HS. Admits ankle swelling. Pain in knee and hip when she crosses RT leg over LT. Wears knee sleeve Prior treatment(s) included: tried tylenol, massager, heat. XR knees [facility] 01/09/21, knee sleeved MEDICATION: Current Outpatient Medications on File Prior to Visit Medication Sig Dispense Refill FIBER PO Take by mouth gabapentin (Neurontin) 300 MG capsule Take 1 capsule (300 mg) by mouth in the morning and 1 capsule (300 mg) before bedtime. Do all this for 7 days. 14 capsule 0 latanoprost (Xalatan) 0.005 % ophthalmic solution instill 1 DROP IN BOTH EYES AT BEDTIME losartan (Cozaar) 50 MG tablet 1 (one) time each day at the same time. oxybutynin (Ditropan) 5 MG tablet every 12 (twelve) hours. rOPINIRole (Requip) 1 MG tablet Take 1 mg by mouth venlafaxine XR (Effexor XR) 150 MG 24 hr capsule venlafaxine XR (Effexor XR) 75 MG 24 hr capsule verapamil ER (Verelan) 180 MG 24 hr capsule See Instructions, TAKE 1 CAPSULE BY MOUTH DAILY, # 90 cap(s), Refills(s) 3, Pharmacy: [facility], 162, cm, 05/05/23 11:20:00 EDT, Height/Length Dosing, 68.8, kg, 05/05/23 11:20:00 EDT, Weight Dosing No current facility-administered medications on file prior to visit. MEDICAL HISTORY: Past Medical History: Diagnosis Date Anxiety Depression (CMS/HCC) Hypertension (CMS/HCC) RLS (restless legs syndrome) ALLERGIES: Allergies Allergen Reactions Latex Unknown Sulfa Antibiotics Unknown VITALS: Visit Vitals Smoking Status Never PHYSICAL EXAM: Ortho Exam RIGHT KNEE Global tenderness No instability Normal alignment ROM 0-120 Normal temp/color PF crepitus IMAGING: X-rays AP B/L WB, lateral and sunrise of the RT knee demonstrate Preservation of the joint space. No fractures are noted. Neutral alignment. Impressions: No acute processes noted on x-rays of the right knee VIANEY VELASQUEZ 01/09/2021 02:45:20 PM > ASSESSMENT: ICD-10-CM 1. Right knee pain, unspecified chronicity M25.561 2. Arthritis of knee M17.10 L Inj/Asp: R knee L Inj/Asp: R knee on 12/18/2023 12:15 PM Indications: pain Details: 21 G needle, anterolateral approach Medications: 40 mg methylPREDNISolone acetate 40 MG/ML Outcome: tolerated well, no immediate complications Procedure, treatment alternatives, risks and benefits explained, specific risks discussed. Consent was given by the patient. PLAN: I explained the diagnosis and reviewed treatment options including NSAIDs, bracing, injections. I answered all of the patient's questions. I discussed with the patient the option of an injection. I advised the patient of risks associated with an injection including a reaction to medication, infection, failure to improve and possible worsening. The patient demonstrated understanding. Patient requesting injection. Skin Cleansed with alcohol swab. Utilizing aseptic technique patient given 40mg Depomedrol was injected. Patient tolerated this well. Neurovasc intact s/p injection. Post injection care instructions discussed. If no improvement consider additional injection and possible xrays. Follow up as needed, any issues/concerns follow up sooner. Dr. Velasquez obtained history and examined the patient, I am acting as scribe for Dr. 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 Gladys Velasquez D.O. documented in this encounter [facility] 10-30-2023 History of Present illness Narrative HISTORY OF PRESENT ILLNESS: Lisa Pal is an 78 y.o. @ female. Follow up lumbar spine MRI results LT hip: here for lumbar spine MRI results [facility] 10/27 She started gabapentin and relafen 10/14, pt states some relief. Out of gabapentin, taking relafen LT hip/buttock pain x (12/2022), She fell out of bed in Sept, not sure if it is related to her pain. Recent flare up x 9 weeks. She notes 10/11 her pain was terrible and she spent the day on the heating pad. Started anterior thigh, no longer having. Minimal pain is LT buttock. Most discomfort in the LT knee.. Usually worse in the AM and with sit to stand. Pain 1/10 today.Tried blue emu, no relief. Denies N/T, swelling. Denies popping/grinding. Weakness. Denies giving out. Sleeping better. Tried TYL and muscle relaxer, Had USG injx 09/09/23, she reports no relief. Prior tx: TYL, heat, knee brace, salon pas, voltaren, MDP, ice, lumbar x-ray [facility] 01/02/23, LT SI trigger point injection 01/14/23, USG injection 01/28/23, muscle relaxer, blue emu, USG hip injx 09/09/23, XR Femur [facility] 09/23/23, bone scan 10/15/23 FM, MRI lumbar spine [facility] 10/28/23, gabapentin, relafen. MEDICATION: Current Outpatient Medications on File Prior to Visit Medication Sig Dispense Refill gabapentin (Neurontin) 300 MG capsule Take 1 capsule (300 mg) by mouth in the morning and 1 capsule (300 mg) before bedtime. Do all this for 7 days. 14 capsule 0 latanoprost (Xalatan) 0.005 % ophthalmic solution instill 1 DROP IN BOTH EYES AT BEDTIME venlafaxine XR (Effexor XR) 150 MG 24 hr capsule venlafaxine XR (Effexor XR) 75 MG 24 hr capsule verapamil ER (Verelan) 180 MG 24 hr capsule See Instructions, TAKE 1 CAPSULE BY MOUTH DAILY, # 90 cap(s), Refills(s) 3, Pharmacy: [facility], 162, cm, 05/05/23 11:20:00 EDT, Height/Length Dosing, 68.8, kg, 05/05/23 11:20:00 EDT, Weight Dosing [DISCONTINUED] nabumetone (Relafen) 500 MG tablet Take 1 tablet (500 mg) by mouth in the morning and 1 tablet (500 mg) before bedtime. 60 tablet 0 FIBER PO Take by mouth losartan (Cozaar) 50 MG tablet 1 (one) time each day at the same time. oxybutynin (Ditropan) 5 MG tablet every 12 (twelve) hours. rOPINIRole (Requip) 1 MG tablet Take 1 mg by mouth No current facility-administered medications on file prior to visit. MEDICAL HISTORY: Past Medical History: Diagnosis Date Anxiety Depression ([facility]) Hypertension (CMS/[facility]) ALLERGIES: Allergies Allergen Reactions Latex Unknown Sulfa Antibiotics Unknown VITALS: Visit Vitals Ht 5' 6 Wt 146 lb BMI 23.57 kg/m Smoking Status Never BSA 1.76 m PHYSICAL EXAM: Ortho Exam LUMBAR SPINE Negative SLR No paravertebral spasms No areas of point tenderness lumbar region LT KNEE: Tenderness diffuse Crepitation is present IMAGING: September 23, 2023 x-rays from the [place] office AP and lateral of the left femur demonstrate intact cortices. There is a small subchondral cyst in the rim of the acetabulum the hip joint spaces intact. There are no acute findings Impression: No acute findings, mild arthritic changes of the hip. Gus Velasquez D.O. I reviewed a triple phase bone scan from [facility] of the lower extremities there is marked tracer uptake in the right hip consistent with arthritis there is moderate tracer uptake in the left hip joint consistent with arthritis. There are no areas of uptake suspicious for fracture or tumor between the hip and the knee. There is also increased uptake in the lumbar facets consistent with arthritis. I reviewed an MRI of the lumbar spine dated October 28, 2023. There is a herniated disc on the left side with caudal extension at L1-L2. There is degenerative disc disease at all levels. There are no fractures identified. ASSESSMENT: ICD-10-CM 1. Sciatica of left side M54.32 2. Lumbar herniated disc M51.26 Handicap Placard 6 Months 3. Primary osteoarthritis of left hip M16.12 nabumetone (Relafen) 500 MG tablet 4. Left knee pain, unspecified chronicity M25.562 PLAN: I reviewed the MRI results with the patient and her . Her symptoms are showing a trend of improvement. I do not recommend surgical intervention. Discussed the option of pain clinic referral if symptoms worsen. She will stop the gabapentin and continue with nabumetone as needed. She will follow up prn. Dr. Velasquez obtained history and examined the patient, I am acting as scribe for Dr. Velasquez/BG RN Gladys Velasquez D.O. documented in this encounter [facility] 10-16-2023 History of Present illness Narrative Images from the original note were not included. HISTORY OF PRESENT ILLNESS: Lisa Pal is an 78 y.o. @ female. Chief complaint LT hip pain LT hip: here for bone scan results [facility] 10/15/23 LT hip/buttock pain x (12/2022), She fell out of bed in Oct, not sure if it is related to her pain. Recent flare up x 7 weeks. She notes 10/11 her pain was terrible and she spent the day on the heating pad. Started anterior thigh. Now pain is LT buttocks, groin and radiates down to knee. Usually worse in the AM and with sit to stand. Admits limping. She has to limit her activities due to pain, has not been able to go grocery shopping. Pain 10/27 today, can go to 11/26. Tried blue emu, no relief. Denies N/T, swelling. Denies popping/grinding. Weakness. Denies giving out. She has not slept well for 4 nights. Tried TYL and muscle relaxer without relief. Had USG injx 09/09/23, she reports no relief. Prior tx: TYL, heat, knee brace, salon pas, voltaren, MDP, ice, lumbar x-ray [facility] 01/02/23, LT SI trigger point injection 01/14/23, USG injection 01/28/23, muscle relaxer, blue emu, USG hip injx 09/09/23, XR Femur [facility] 09/23/23, bone scan 10/15/23 [facility] MEDICATION: Current Outpatient Medications on File Prior to Visit Medication Sig Dispense Refill FIBER PO Take by mouth latanoprost (Xalatan) 0.005 % ophthalmic solution instill 1 DROP IN BOTH EYES AT BEDTIME rOPINIRole (Requip) 1 MG tablet Take 1 mg by mouth venlafaxine XR (Effexor XR) 150 MG 24 hr capsule venlafaxine XR (Effexor XR) 75 MG 24 hr capsule verapamil ER (Verelan) 180 MG 24 hr capsule See Instructions, TAKE 1 CAPSULE BY MOUTH DAILY, # 90 cap(s), Refills(s) 3, Pharmacy: [facility], 162, cm, 05/05/23 11:20:00 EDT, Height/Length Dosing, 68.8, kg, 05/05/23 11:20:00 EDT, Weight Dosing losartan (Cozaar) 50 MG tablet 1 (one) time each day at the same time. oxybutynin (Ditropan) 5 MG tablet every 12 (twelve) hours. [DISCONTINUED] ALPRAZolam (Xanax) 0.25 MG tablet 1 tablet Orally prn [DISCONTINUED] hydroCHLOROthiazide (HYDRODiuril) 25 MG tablet 1 (one) time each day at the same time. [DISCONTINUED] methylPREDNISolone (Medrol Dospak) 4 MG tablets Follow schedule on package instructions (Patient not taking: Reported on 09/09/2023) 21 tablet 0 [DISCONTINUED] venlafaxine XR (Effexor XR) 150 MG 24 hr tablet 1 (one) time each day at the same time. No current facility-administered medications on file prior to visit. MEDICAL HISTORY: Past Medical History: Diagnosis Date Anxiety Depression (CMS/[facility]) Hypertension (CMS/[facility]) ALLERGIES: Allergies Allergen Reactions Latex Unknown Sulfa Antibiotics Unknown VITALS: Visit Vitals Smoking Status Never PHYSICAL EXAM: Ortho Exam LT HIP Anterior thigh pain Limping Difficulty crossing LT leg over RT IMAGING: September 23, 2023 x-rays from the [place] office AP and lateral of the left femur demonstrate intact cortices. There is a small subchondral cyst in the rim of the acetabulum the hip joint spaces intact. There are no acute findings Impression: No acute findings, mild arthritic changes of the hip. Gus Ascencio I reviewed a triple phase bone scan from [facility] of the lower extremities there is marked tracer uptake in the right hip consistent with arthritis there is moderate tracer uptake in the left hip joint consistent with arthritis. There are no areas of uptake suspicious for fracture or tumor between the hip and the knee. There is also increased uptake in the lumbar facets consistent with arthritis. ASSESSMENT: ICD-10-CM 1. Left hip pain M25.552 2. Primary osteoarthritis of left hip M16.12 nabumetone (Relafen) 500 MG tablet 3. Sciatica of left side M54.32 gabapentin (Neurontin) 300 MG capsule MR lumbar spine wo contrast PLAN: I reviewed imaging results with the patient and answered questions. I recommend relafen and gabapentin, RX sent. I discussed with the patient the risks associated with nonsteroidal anti-inflammatory medication. This included the risk of bleeding, GI ulceration, renal failure and sudden cardiac event. The patient was instructed on the proper way to take the medication. The patient was advised to stop the medication if any side effects occur. The patient was advised to contact their primary care physician or us or go to the ER if the patient is experiencing side effects. I also recommend MRI of the lumbar spine. She will follow up after the MRI. Dr. Velasquez obtained history and examined the patient, I am acting as scribe for Dr. Velasquez/ADONIS PATTERSON D.O. documented in this encounter [facility] 06-02-2023 Hospital Discharge instructions Patient Education 06/02/2023 10:36:53 Urethral Dilation Urethral Dilation Urethral dilation is a procedure to stretch open (dilate) the urethra. The urethra is the tube that drains urine from the bladder out of the body. In women, the urethra opens above the vaginal opening. In men, the urethra opens at the tip of the penis. Urethral dilation is usually done to treat narrowing of the urethra (urethral stricture), which can make it difficult to pass urine. Urethral dilation widens the urethra so that you can pass urine normally. Urethral dilation is done through the urethral opening. There are no incisions made during the procedure. Tell a health care provider about: Any allergies you have. All medicines you are taking, including vitamins, herbs, eye drops, creams, and [id number] medicines. Any problems you or family members have had with anesthetic medicines. Any blood disorders you have. Any surgeries you have had. Any medical conditions you have. Whether you are or may be . What are the risks? Generally, this is a safe procedure. However, problems may occur, including: Bleeding. Infection. A return of urethral stricture, which requires repeating the dilation procedure. Damage to the urethra, which may require reconstructive surgery. Allergic reactions to medicines. What happens before the procedure? Medicines Ask your health care provider about: Changing or stopping your regular medicines. This is especially important if you are taking diabetes medicines or blood thinners. Taking medicines such as aspirin and ibuprofen. These medicines can thin your blood. Do not take these medicines unless your health care provider tells you to take them. Taking dqck-diy-qgfweia medicines, vitamins, herbs, and supplements. General instructions Follow instructions from your health care provider about eating or drinking restrictions. Plan to have someone take you home from the hospital or clinic. If you will be going home right after the procedure, plan to have someone with you for 24 hours. Ask your health care provider what steps will be taken to help prevent infection. These may include: ?Washing skin with a germ-killing soap. ?Taking antibiotic medicine. What happens during the procedure? An IV may be inserted into one of your veins. You will be given one or more of the following medicines: ?A local anesthetic to numb your urethral opening. This will be applied as a gel that will also lubricate the urethral opening. ?A sedative to help you relax. A thin tube with a light and camera on the end (cystoscope) will be inserted into your urethra. Your urethra will be rinsed (irrigated) with a germ-free (sterile) water solution. Narrow parts of your urethra will be stretched open using a dilator tool. Your surgeon will start with a very thin dilator, then use wider dilators as needed. A thin tube with an inflatable balloon on the tip may be inserted into your urethra. The balloon may be inflated to help stretch your urethra open. Your urethra will be irrigated. The procedure may vary among health care providers and hospitals. What can I expect after the procedure? After the procedure, it is common to have: ?Burning pain when urinating. ?Blood in your urine. ?A need to urinate frequently. You will be asked to urinate before you leave the hospital or clinic. Your urine flow should improve within a few days. Follow these instructions at home: Medicines Take etio-uaz-grjijlq and prescription medicines only as told by your health care provider. If you were prescribed an antibiotic medicine, take it as told by your health care provider. Do not stop taking the antibiotic even if you start to feel better. Ask your health care provider if the medicine prescribed to you: ?Requires you to avoid driving or using heavy machinery. ?Can cause constipation. You may need to take these actions to prevent or treat constipation: ?Take ginf-kmb-dmkisrl or prescription medicines. ?Eat foods that are high in fiber, such as beans, whole grains, and fresh fruits and vegetables. ?Limit foods that are high in fat and processed sugars, such as fried or sweet foods. General instructions Do not drive for 24 hours if you were given a sedative during your procedure. If you were sent home with a small, lubricated tube (catheter) to help keep your urethra open, follow your health care provider's instructions about how and when to use it. Drink enough fluid to keep your urine pale yellow. Return to your normal activities as told by your health care provider. Ask your health care provider what activities are safe for you. Keep all follow-up visits as told by your health care provider. This is important. Contact a health care provider if: Your urine is cloudy and smells bad. You develop new bleeding when you urinate. You pass blood clots when you urinate. You have pain that does not get better with medicine. You have a fever. You have swelling, bruising, or discoloration of your genital area. This includes the penis, scrotum, and inner thighs for men, and the outer genital organs (vulva) and inner thighs for women. Get help right away if: You develop new bleeding that does not stop. You cannot pass urine. Summary Urethral dilation is a procedure to stretch open (dilate) the urethra. Urethral dilation is usually done to treat narrowing of the urethra (urethral stricture), which can make it difficult to pass urine. Ask your health care provider about changing or stopping your regular medicines before the procedure. After the procedure, it is common to have burning pain when urinating, blood in your urine, and a need to urinate frequently. This information is not intended to replace advice given to you by your health care provider. Make sure you discuss any questions you have with your health care provider. Document Revised: 03/18/2019 Document Reviewed: 03/18/2019 [employer] Patient Education 2022 [employer]. Follow Up Care 03/21/2023 10:46:22 With:STANISLAV CHAVARRIA, Cosme Paul, URL Address: [facility] [address] , [place] [address] [phone] When: Unknown Comments:1 yr for only [facility] 06-29-2021 Hospital Discharge instructions Patient Education 06/29/2021 08:00:28 Urethral Stricture Urethral Stricture Urethral stricture is narrowing of the tube (urethra) that carries urine from the bladder out of the body. The urethra can become narrow due to scar tissue from an injury or infection. This can make it difficult to pass urine. In women, the urethra opens above the vaginal opening. In men, the urethra opens at the tip of the penis, and the urethra is much longer than it is in women. Because of the length of the male urethra, urethral stricture is much more common in men. This condition is treated with surgery. What are the causes? In both men and women, common causes of urethral stricture include: Urinary tract infection (UTI). Sexually transmitted infection (STI). Use of a tube placed into the urethra to drain urine from the bladder (urinary catheter). Urinary tract surgery. In men, common causes of urethral stricture include: A severe injury to the pelvis. Prostate surgery. Injury to the penis. In many cases, the cause of urethral stricture is not known. What increases the risk? You are more likely to develop this condition if you: Are male. Men who have had prostate surgery are at risk of developing this condition. Use a urinary catheter. Have had urinary tract surgery. What are the signs or symptoms? The main symptom of this condition is difficulty passing urine. This may cause decreased urine flow, dribbling, or spraying of urine. Other symptom of this condition may include: Frequent UTIs. Blood in the urine. Pain when urinating. Swelling of the penis in men. Inability to pass urine (urinary obstruction). How is this diagnosed? This condition may be diagnosed based on: Your medical history and a physical exam. Urine tests to check for infection or bleeding. X-rays. Ultrasound. Retrograde urethrogram. This is a type of test in which dye is injected into the urethra and then an X-ray is taken. Urethroscopy. This is when a thin tube with a light and camera on the end (urethroscope) is used to look at the urethra. How is this treated? This condition is treated with surgery. The type of surgery that you have depends on the severity of your condition. You may have: Urethral dilation. In this procedure, the narrow part of the urethra is stretched open (dilated) with dilating instruments or a small balloon. Urethrotomy. In this procedure, a urethroscope is placed into the urethra, and the narrow part of the urethra is cut open with a surgical blade inserted through the urethroscope. Open surgery. In this procedure, an incision is made in the urethra, the narrow part is removed, and the urethra is reconstructed. Follow these instructions at home: Take sqjt-ksx-wuxncus and prescription medicines only as told by your health care provider. If you were prescribed an antibiotic medicine, take it as told by your health care provider. Do not stop taking the antibiotic even if you start to feel better. Drink enough fluid to keep your urine pale yellow. Keep all follow-up visits as told by your health care provider. This is important. Contact a health care provider if: You have signs of a urinary tract infection, such as: ?Frequent urination or passing small amounts of urine frequently. ?Needing to urinate urgently. ?Pain or burning with urination. ?Urine that smells bad or unusual. ?Cloudy urine. ?Pain in the lower abdomen or back. ?Trouble urinating. ?Blood in the urine. ?Vomiting or being less hungry than normal. ?Diarrhea or abdominal pain. ?Vaginal discharge, if you are female. Your symptoms are getting worse instead of better. Get help right away if: You cannot pass urine. You have a fever. You have swelling, bruising, or discoloration of your genital area. This includes the penis, scrotum, and inner thighs for men, and the outer genital organs (vulva) and inner thighs for women. You develop swelling in your legs. You have difficulty breathing. Summary Urethral stricture is narrowing of the tube (urethra) that carries urine from the bladder out of the body. The urethra can become narrow due to scar tissue from an injury or infection. This condition can make it difficult to pass urine. This condition is treated with surgery. The type of surgery that you have depends on the severity of your condition. Contact a health care provider if your symptoms get worse or you have signs of a urinary tract infection. This information is not intended to replace advice given to you by your health care provider. Make sure you discuss any questions you have with your health care provider. Document Released: 03/01/2016 Document Revised: 09/16/2018 Document Reviewed: 09/16/2018 [employer] Patient Education 2020 [employer]. Follow Up Care 10/13/2020 10:48:10 With:STANISLAV CHAVARRIA, Cosme Paul, SHER Address: [facility] [address] [place] [address]- When:06/29/2022 [facility] Evaluation + Plan note Future Appointments Appointment Date:07/01/2022 10:15:00 AM Scheduled Provider:[facility] COL[facility]ADO [facility] Office Visit [facility] Evaluation + Plan note Future Appointments Appointment Date:10/30/2022 04:00:00 PM Scheduled Provider:Shailesh Fajardo MD Location:[facility] Appointment Type: New Patient - Adult Diagnostic Tests PendingUrine Culture 10/16/22 [facility] Evaluation + Plan note Future Appointments Appointment Date:08/05/2023 10:00:00 AM Scheduled Provider:[facility]: Open Appointment Date:02/16/2024 11:00:00 AM Scheduled Provider: Location:[facility] Appointment Type:FM Medicare Wellness Subsequent Appointment Date:06/04/2024 09:30:00 AM Scheduled Provider:Cosme COLORADO MD Location:[facility] Appointment Type:URO Office Visit [facility] Evaluation + Plan note Future Appointments Appointment Date:03/04/2024 09:15:00 AM Scheduled Provider:Shailesh Fajardo MD Location:[facility] Appointment Type: Open Appointment Date:06/04/2024 09:30:00 AM Scheduled Provider:Cosme COLORADO MD Location:[facility] Appointment Type:URO Office Visit Appointment Date:02/16/2025 11:00:00 AM Scheduled Provider: Location:[facility] Appointment Type:FM Medicare Wellness Subsequent [facility] Evaluation note No assessment inform ation available [facility] Work Phone: Evaluation note Diagnosis Right knee pain, unspecified chronicity- Primary Arthritis of knee Unspecified arthropathy, lower leg [facility] Diagnosis Sciatica of left side- Primary Lumbar herniated disc Primary osteoarthritis of left hip Left knee pain, unspecified chronicity [facility] Diagnosis Left hip pain- Primary Pain in joint, pelvic region and thigh Primary osteoarthritis of left hip Sciatica of left side [facility] Narrative No data available for this section [facility] Hospital Discharge instructions No data available for this section [facility] progress note No data available for this section [facility] Advance Directives No Advanced Directives Records Found Advance Directive Response Recorded Date/ Time Advance Directives No January 11:02am Summary Purpose Family History No Family History Records FoundNo Family History Records Found No data available for this section No Family History Records Found No data available for this section No Family History Records FoundNo Family History Records FoundNo Family History Records FoundNo Family History Records FoundNo Family History Records Found Reason for Referral Specialty Diagnoses / Procedures Referred By Contac t Referred To Contact Radiology Diagnoses Sciatica of left side Procedures MR lumbar spine wo contrast Vianey Velasquez, DO [address] [place] [address] [facility] [address] [place] [address] Referral ID Status Reason Start Date Expiration Date V isits Requested Visits Authorized [id number] Authorized 10/16/2023 04/13/2024 1 1 Additional Source Comments Care Teams (unrecognized sec tion and content) Team Status: Active Member Role 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 Primary Care Provider Active Team Status: Inactive Member Role 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 Primary Care Provider Active Raiza Huitron NP-C Attending Provider Active Management Rep Relationship Specialty Start Date End Date Shailesh Fajardo MD [address] [place] [address] PCP - General Family Medicine 09/22/23 Management Rep Relationship Specialty Start Date End Date Shailesh Fajardo MD [address] [place] [address] PCP - General Family Medicine 09/22/23 Management Rep Relationship Specialty Start Date End Date Shailesh Fajardo MD [address] [place] [address] PCP - General Family Medicine 09/22/23 Management Rep Relationship Specialty Start Date End Date Shailesh Fajardo MD [address] [place] [address] PCP - General Family Medicine 09/22/23 Management Rep Relationship Specialty Start Date End Date Shailesh Fajardo MD [address] [place] [address] PCP - General Family Medicine 09/22/23 Goals (unrecognized section and content) Goals may be documented in a n alternate section INFORMATION SOURCE (unrecogn ized section and content) DATE CREATED AUTHOR 05/28/2022 [facility] DATE CREATED AUTHOR AUTHOR'S ORGANIZ ATION 06/15/2022 [facility] DATE CREATED AUTHOR AUTHOR'S ORGANIZ ATION 12/20/2023 [facility] dical [facility] DATE CREATED AUTHOR AUTHOR'S ORGANIZ ATION 02/28/2024 [facility] DATE CREATED AUTHOR AUTHOR'S ORGANIZ ATION 06/02/2024 [facility] DATE CREATED AUTHOR AUTHOR'S ORGANIZ ATION 06/06/2024 [facility] Reason for Visit (unrecogniz ed section and content) Reason Comments Pain FOR RECORDS PERTAINING TO PATIENTS WHO ARE OR HAVE BEEN ENROLLED IN A CHEMICAL DEPENDENCY/SUBSTANCEABUSE PROGRAM, SOME INFORMATION MAY BE OMITTED. This clinical summary was aggregated from multiple sources. Caution should be exercised in using it in the provision of clinical care. This summary normalizes information from multiple sources, and as a consequence, information in this document may materially change the coding, format and clinical context of patient data. In addition, data may be omitted in some cases. CLINICAL DECISIONS SHOULD BE BASED ON THE PRIMARY CLINICAL RECORDS. [facility]. provides no warranty or guarantee of the accuracy or completeness of information in this document.
== END 2024-06-28 09:24 | disposition home or self-care (01) ==
LOC: MAMMO 09:23
PROVIDERS: PCP Family Medicine; Visit Provider Family Medicine
DX: Z12.31 Encounter for screening mammogram for malignant neoplasm of breast (principal); Z80.1 Family history of malignant neoplasm of trachea, bronchus and lung; Z80.0 Family history of malignant neoplasm of digestive organs
CPT/HCPCS: 77063; 77067

== ENCOUNTER 2024-11-17 10:19 | Outpatient (OUT) | payer MEDICARE, SELFPAY ==
--- OUTSIDE RECORDS SUMMARY | 2024-11-02 13:14 | XMS_ITS ---
Author Name Auto Generated Organization [facility] Care Team Providers Care Box Worker Name Role Phone AYDE ESPINAL Attending Unavailable AYDE ESPINAL Referring Unavailable VIANEY VELASQUEZ Attending Unavailable MARYAM SEWELL Attending Unavailable Shailesh Fajardo Admitting Unavailable Shailesh Fajardo Attending Unavailable JOCELIN GUAMAN Attending Unavailable Shailesh Fajardo Attending Unavailable Shailesh Fajardo Attending Unavailable Shailesh Fajardo Attending Unavailable Shailesh Fajardo Attending Unavailable Shailesh Fajardo Attending Unavailable Shailesh Fajardo Attending Unavailable Shailesh Fajardo Attending Unavailable Cosme COLORADO Attending Unavailable Shailesh Fajardo Admitting Unavailable Shailesh Fajardo Attending Unavailable PROBLEMS No Problem Records Found PROCEDURES No Procedure Records Found RESULTS PATIENT EDUCATION Observed: 08/26/2024 11:52 AM Status: F Source: [facility] Patient Education Dermatology Poison Spike Dermatitis Poison spike dermatitis is redness and soreness of the skin caused by chemicals in the leaves of the poison spike plant. You may have very bad itching, swelling, a rash, and blisters. What are the causes? Touching a poison spike plant. ??? Touching something that has the chemical on it. This may include animals or objects that have come in contact with the plant. What increases the risk? Going outdoors often in wooded or marshy areas. ??? Going outdoors without wearing protective clothing, such as closed shoes, long pants, and a long-sleeved shirt. What are the signs or symptoms? Skin redness. ??? Very bad itching. ??? A rash that often includes bumps and blisters. ? The rash usually appears 48 hours after exposure, if you have had it before. ? If this is the first time you have it, the rash may not appear until a week after exposure. ??? Swelling. This may occur if the reaction is very bad. Symptoms usually last for 1?2 weeks. The first time you get this condition, symptoms may last 3?4 weeks. How is this treated? This condition may be treated with: ??? Hydrocortisone cream or calamine lotion to relieve itching. ??? Oatmeal baths to soothe the skin. ??? Medicines, such as dlnx-wqy-rptesph antihistamine tablets. ??? Oral steroid medicine for very bad reactions. Follow these instructions at home: Medicines ??? Take or apply bxew-lqg-ggshedc and prescription medicines only as told by your doctor. ??? Use hydrocortisone cream or calamine lotion as needed to help with itching. General instructions ??? Do not scratch or rub your skin. ??? Put a cold, wet cloth (cold compress) on the affected areas or take baths in cool water. This will help with itching. ??? Avoid hot baths and showers. ??? Take oatmeal baths as needed. Use colloidal oatmeal. You can get this at a pharmacy or grocery store. Follow the instructions on the package. ??? While you have the rash, wash your clothes right after you wear them. ??? Check the affected area every day for signs of infection. Check for: ? More redness, swelling, or pain. ? Fluid or blood. ? Warmth. ? Pus or a bad smell. ??? Keep all follow-up visits. Your doctor may want to see how your skin is doing with treatment. How is this prevented? Know what poison spike looks like, so you can avoid it. ? This plant has three leaves with flowering branches on a single stem. ? The leaves are glossy. ? The leaves have uneven edges that come to a point. ??? If you touch poison spike, wash your skin with soap and water right away. Be sure to wash under your fingernails. ??? When hiking or camping, wear long pants, a long-sleeved shirt, long socks, and hiking boots. You can also use a lotion on your skin that helps to prevent contact with poison spike. ??? If you think that your clothes or outdoor gear came in contact with poison spike, rinse them off with a garden hose before you bring them inside your house. ??? When doing yard work or gardening, wear gloves, long sleeves, long pants, and boots. Wash your garden tools and gloves if they come in contact with poison spike. ??? If you think that your pet has come into contact with poison spike, wash them with pet shampoo and water. Make sure to wear gloves while washing your pet. Contact a doctor if: ??? You have open sores in the rash area. ??? You have any signs of infection. ??? You have redness that spreads past the rash area. ??? You have a fever. ??? You have a rash over a large area of your body. ??? You have a rash on your eyes, mouth, or genitals. ??? Your rash does not get better after a few weeks. Get help right away if: ??? Your face swells or your eyes swell shut. ??? You have trouble breathing. ??? You have trouble swallowing. These symptoms may be an emergency. Do not wait to see if the symptoms will go away. Get help right away. Call 911. This information is not intended to replace advice given to you by your health care provider. Make sure you discuss any questions you have with your health care provider. Document Revised: 07/04/2022 Document Reviewed: 07/04/2022 [employer] Patient Education ? 2023 [employer]. AMBULATORY VISIT SUMMARY Observed: 08/26 11:32 AM Status: F Source: [facility] Ambulatory Visit Summary USMAN LING :1945 Visit Date:08/26/2024 Ambulatory Visit Instructions Your Diagnosis Poison spike BMI 24.0-24.9, adult Nonsmoker Your Care Team Attending Physician - JOCELIN GUAMAN CNP Primary Care Physician - Shailesh Fajardo MD This Is Your Medications List [facility] [place] (Jose Padilla, 5 years.) alprazolam (Xanax 0.5 mg Tab) estradiol topical [...] Appendectomy, Colonoscopy, Hysterectomy, Tonsillectomy. Discharge Vitals Temperature (Oral) 36.7 ???C Heart Rate (Peripheral) 90 Respiratory Rate 18 Blood Pressure 124/80 Height 168 cm Height 66 in Weight 68.5 kg Weight 151.016 lb BMI 24.27 What to do next Scheduled Follow-Up Appointments Friday 11:00 AM EST Where: [facility] [place] [address] [place] [address]- Medications What How Much When Why Instructions Unchanged alprazolam (Xanax 0.5 mg Tab) 1 Tablets By Mouth 3 times a day as needed for for anxiety Unchanged estradiol topical (estradiol 0.1 mg/ g Vag Crm) 1 Gram Vaginal Every week Unchanged ibuprofen 200 Milligram 2 times a day as needed for as needed for pain Unchanged latanoprost ophthalmic See instructions use as directed Unchanged [facility] [place] (Handicap Placard, 5 years.) See instructions Panic attacks Hypertension Depression Impaired ambulation Sebaceous cyst [facility] Unchanged nabumetone (nabumetone 500 mg Tab) 1 [...] are currently receiving treatment for. Bereavement BMI 24.0-24.9, adult COVID-19 Dizziness Frequent headaches History of urethral stricture Hot flashes Hypertension Insomnia Knee pain, right Major depressive disorder, recurrent, moderate Microscopic hematuria Nonsmoker Panic attacks Postinfective urethral stricture in female Restless leg Sciatic pain SK (seborrheic keratosis) Historical - Any problem that you are no longer receiving treatment for. Depression Patient Survey You may receive a survey via text or e-mail asking about your office visit. Please share your experience with us by completing your survey. We appreciate your feedback and thank you for choosing us for your care. Patient Portal You may access all of your results and other medical record information on our secure patient portal. If you are not signed up for this yet, please contact [employer] at [phone] to get signed up today. Language Information Language assistance services are available as needed. FAMILY MEDICINE OFFICE/CLINI C NOTE Observed: 08/26/2024 11:32 AM Status: F Source: [facility] Family Medicine Office/Clini c Note Chief Complaint Acute Visit The patient presents with an itchy rash. HPI Staff Former Dr Scotty vance. Presents today for acute visit. Has rash, that she is positive is not poison spike, on her arms, groin, one on her breast that itches terribly . She was out working in her garden. Says she was using a topical cream (thinks maybe clotrimazole betamethasone), but it was not helping. Not open. No fever or other sx. Mammogram 06/28/24 History of Present Illness 78-year-old female presenting with a rash suspected to be poison spike dermatitis. The rash began approximately on Friday and was initially mild but worsened with scratching. The patient reports no exposure to poison spike leaves but was involved in gardening activities, including cutting irises, which may have led to contact with the plant. The rash is characterized by intense itching, and the patient has been self-inoculating by scratching, which has spread the rash to other areas. The patient has previously used a topical steroid cream containing clotrimazole and betamethasone without significant relief. The patient denies any history of diabetes, which is relevant for the consideration of systemic steroid therapy. Review of Systems PHQ Score Initial Depression Screen Score: 0 SCORE - Dermatological: Reports itchy rash, denies rash on legs - Endocrine: Denies history of diabetes Physical Exam Vitals & Measurements T: 36.7 ???C(Oral) HR: 90(Peripheral) RR: 18 BP: 124/80 SpO2: 98% HT: 168 cm HT: 66 in WT: 68.5 kg WT: 151.016 lb BMI: 24.27 General: alert, no acute distress Skin: multiple areas of erythema to her arms, and abdomen, some areas with macules Head: no trauma, normocephalic Neck: Trachea midline, no adenopathy, no tenderness Eye: normal conjunctiva, sclera clear Cardiovascular: regular rate and rhythm, normal peripheral perfusion Respiratory: Lungs CTA, respirations non labored Assessment/Plan 1. Poison spike (L23.7: Allergic contact dermatitis due to plants, except food) - Prescribed prednisone to reduce inflammation and itching, with a tapering dose over several days to prevent rebound effects. - Advised to avoid scratching to prevent further spread of the rash. Ordered: predniSONE, 20 mg = 1 tab(s), Oral, As Directed, Take two tabs by mouth BID x 3 days; then one tablet BID x 3 days, then one tablet daily x 3 days, # 21 tab(s), Refills(s) 0, Pharmacy: [facility], 168, cm, 08/26/24 11:37:00 EDT, Height/Length Dosing, 68.... 2. BMI 24.0-24.9, adult (Z68.24: Body mass index [BMI] 24.0-24.9, adult) BMI 24.27 Encouraged diet as tolerated Ordered: 3. Nonsmoker (Z78.9: Other specified health status) Encouraged to continue as non-smoker Ordered: predniSONE, 20 mg = 1 tab(s), Oral, As Directed, Take two tabs by mouth BID x 3 days; then one tablet BID x 3 days, then one tablet daily x 3 days, # 21 tab(s), Refills(s) 0, Pharmacy: [facility], 168, cm, 08/26/24 11:37:00 EDT, Height/Length Dosing, 68.... 1124F ACP discussed and documented; patient declines surrogate decision or ACPr 1126F Pain severity quantified; no pain present Advance Care Planning discussed and documented 1123F Body Mass Index (BMI) documented 3008F Current tobacco non-user 1036F Medication list documented in medical record 1159F Most recent diastolic blood pressure 80-89 mm Hg 3079F Screening mammography documented and reviewed 3014F Systolic BP <130 mm Hg (Most Recent) 3074F Follow-up No qualifying data available Patient Education Poison Spike Dermatitis, Nprc-ab-Kusz Problem List/Past Medical History Ongoing Bereavement BMI 24.0-24.9, adult COVID-19 Dizziness Frequent headaches History of urethral stricture Hot flashes Hypertension Insomnia Knee pain, right Major depressive disorder, recurrent, moderate Microscopic hematuria Nonsmoker Panic attacks Postinfective urethral stricture in female Restless leg Sciatic pain SK (seborrheic keratosis) Historical Depression Procedure/Surgical History Dilation of urethra (06/02/2023), Cystourethroscopy with dilation of urethral stricture (11/11/2022), Cystourethroscopy with dilation of urethral stricture (10/26/2019), Appendectomy, Colonoscopy, Hysterectomy, Tonsillectomy. Medications estradiol 0.1 mg/g Vag Crm, 1 gm, Vaginal, qWeek, 6 refills Handicap Candyard, 5 years., See Instructions ibuprofen, 200 mg, BID, PRN latanoprost ophthalmic, See Instructions nabumetone 500 mg Tab, 500 mg= 1 tab(s), BID predniSONE 20 mg Tab, 20 mg= 1 tab(s), Oral, As Directed ropinirole 1 mg Tab, See Instructions, 3 [...] Abuse - Denies Substance Abuse, 02/16/2024 Never., 03/04/2024 Tobacco - Denies Tobacco Use, 02/16/2024 Never (less than 100 in lifetime) Tobacco Use:. Never Smokeless Tobacco Use:. Household tobacco concerns: No. Yes, 08/26/2024 Family History Asthma: Mother. Cancer: Father. Diabetes: Father and Sister. Heart disease: Father. Immunizations Vaccine Date Status Comments influenza virus vaccine, inactivated 10/24/2023 Recorded influenza virus vaccine, inactivated 11/05/2022 Recorded influenza virus vaccine, inactivated 11/29/2021 Recorded SARS-CoV-2 (COVID-19) [id number].[id number] 11/29/2021 Recorded SARSCoV2 mRNA(aaptdheko-kbnb-iwhwvr) vac 06/21/2021 Recorded SARS-CoV-2 (COVID-19) mRNA BNT-162b2 vax 12/06/2020 Recorded influenza virus vaccine, inactivated 10/02/2020 Recorded SARS-CoV-2 (COVID-19) mRNA BNT-162b2 vax 04/12/2020 Recorded 2022-10-16: TPV70 SARS-CoV-2 (COVID-19) mRNA BNT-162b2 vax 03/17/2020 Recorded 2022-10-16: TPV70 SARS-CoV-2 (COVID-19) mRNA BNT-162b2 vax 2020 Recorded zoster vaccine, inactivated 12/20/2019 Recorded influenza virus vaccine, inactivated 11/30/2018 Recorded influenza virus vaccine, inactivated 11/13/2017 Recorded pneumococcal 13-valent vaccine 11/21/2016 Recorded influenza virus vaccine, inactivated 11/21/2016 Recorded influenza virus vaccine, inactivated 12/05/2014 Recorded Result Comment: Electronical ly Signed By: JOCELIN GUAMAN CNP\.br\Date and Time Signed: 08/26/24 11:54 EDT PATIENT EDUCATION Observed: 05/31/2024 10:44 AM Status: F Source: [facility] Patient Education Cardiovascular Hypertension, Adult High blood [...] oz glass of hard liquor (44 mL). Lifestyle ??? Work with your health care provider to maintain a healthy body weight or to lose weight. Ask what an ideal weight is for you. ??? Get at least 30 minutes of exercise that causes your heart to beat faster (aerobic exercise) most days of the week. Activities may include walking, swimming, or biking. ??? Include exercise to strengthen your muscles (resistance exercise), such as Pilates or lifting weights, as part of your weekly exercise routine. Try to do these types of exercises for 30 minutes at least 3 days a week. ??? Do not use any products that contain nicotine or tobacco. These products include cigarettes, chewing tobacco, and vaping devices, such as e-cigarettes. If you need help quitting, ask your health care provider. ??? Monitor your blood pressure at home as told by your health care provider. ??? Keep all follow-up visits. This is important. Medicines ??? Take jxyk-cgg-rrrlztj and prescription medicines only as told by your health care provider. Follow directions carefully. Blood pressure medicines must be taken as prescribed. ??? Do not skip doses of blood pressure medicine. Doing this puts you at risk for problems and can make the medicine less effective. ??? Ask your health care provider about side effects or reactions to medicines that you should watch for. Contact a health care provider if you: ??? Think you are having a reaction to a medicine you are taking. ??? Have headaches that keep coming back (recurring). ??? Feel dizzy. ??? Have swelling in your ankles. ??? Have trouble with your vision. Get help right away if you: ??? Develop a severe headache or confusion. ??? Have unusual weakness or numbness. ??? Feel faint. ??? Have severe pain in your chest or abdomen. ??? Vomit repeatedly. ??? Have trouble breathing. These symptoms may be an emergency. Get help right away. Call 911. ??? Do not wait to see if the symptoms will go away. ??? Do not drive yourself to the hospital. Summary ??? Hypertension is when the force of blood pumping through your arteries is too strong. If this condition is not controlled, it may put you at risk for serious complications. ??? Your personal target blood pressure may vary depending on your medical conditions, your age, and other factors. For most people, a normal blood pressure is less than 120/80. ??? Hypertension is treated with lifestyle changes, medicines, or a combination of both. Lifestyle changes include losing weight, eating a healthy, low-sodium diet, exercising more, and limiting alcohol. This information is not intended to replace advice given to you by your health care provider. Make sure you discuss any questions you have with your health care provider. Document Revised: 12/11/2021 Document Reviewed: 12/11/2021 [employer] Patient Education ? 2023 [employer]. AMBULATORY VISIT SUMMARY Observed: 05/31 9:08 AM Status: F Source: [facility] Ambulatory Visit Summary USMAN LING :1945 Visit Date:05/31/2024 Ambulatory Visit Instructions [...] Follow-Up Appointments Friday 9:30 AM EDT With: STANISLAV CHAVARRIA, Cosme Paul Where: [facility] [address] [id number]- Friday 1:40 PM EDT With: Shailesh Fajardo MD Where: [address] [id number]- Friday 11:00 AM EST With: Where: [address] [address]- Medications What How Much When Instructions Unchanged [...] you for choosing us for your care. FAMILY MEDICINE OFFICE/CLINI C NOTE Observed: 05/31/2024 9:08 AM Status: F Source: [facility] Family Medicine Office/Clini c Note Chief Complaint 2m follow up The [...] level of consciousness appropriate for age, CN II- XII intact, motor strength equal & normal bilaterally, speech normal Abdomen: Soft, Non-tender, Non-distended, + Bowel sounds Assessment/Plan 1. Panic attacks (F41.0: Panic disorder [episodic paroxysmal anxiety]) Plan referral to regional psychiatric director to oversee integrated management with depression treatment. 2. Hypertension (I10: Essential (primary) hypertension) Well controlled at this time. No issues. Stable on meds. 3. Depression (F32.A: Depression, unspecified) Evaluate medication effectiveness and consider referral to regional psychiatric director for expert management due to current treatment [...] to potential symptom exacerbation. Referral to a regional psychiatric director for medication management is recommended. Examination revealed [...] equipped for her health management. Follow-up No qualifying data available Patient Education Hypertension, Adult Problem List/Past Medical History Ongoing Bereavement COVID-19 Depression Dizziness Frequent headaches History [...] Crm, 1 gm, Vaginal, qWeek, 6 refills ibuprofen, 200 mg, BID, PRN latanoprost ophthalmic, See Instructions nabumetone 500 mg Tab, 500 mg= 1 tab(s), BID ropinirole 1 mg Tab, See Instructions, 3 [...] Abuse - Denies Substance Abuse, 02/16/2024 Never., 03/04/2024 Tobacco - Denies Tobacco Use, 02/16/2024 Never (less than 100 in lifetime) Tobacco Use:. Never Smokeless Tobacco Use:. Household tobacco concerns: No. Yes, 05/31/2024 Family History Asthma: Mother. Cancer: Father. Diabetes: Father and Sister. Heart disease: Father. Immunizations Vaccine Date Status Comments influenza virus vaccine, inactivated 10/24/2023 Recorded influenza virus vaccine, inactivated 11/05/2022 Recorded influenza virus vaccine, inactivated 11/29/2021 Recorded SARS-CoV-2 (COVID-19) [id number].[id number] 11/29/2021 Recorded SARSCoV2 mRNA(xnvxunrlc-bckx-pomkvm) vac 06/21/2021 Recorded SARS-CoV-2 (COVID-19) mRNA BNT-162b2 vax 12/06/2020 Recorded influenza virus vaccine, inactivated 10/02/2020 Recorded SARS-CoV-2 (COVID-19) mRNA BNT-162b2 vax 04/12/2020 Recorded 2022-10-16: TPV70 SARS-CoV-2 (COVID-19) mRNA BNT-162b2 vax 03/17/2020 Recorded 2022-10-16: TPV70 SARS-CoV-2 (COVID-19) mRNA BNT-162b2 vax 2020 Recorded zoster vaccine, inactivated 12/20/2019 Recorded influenza virus vaccine, inactivated 11/30/2018 Recorded influenza virus vaccine, inactivated 11/13/2017 Recorded pneumococcal 13-valent vaccine 11/21/2016 Recorded influenza virus vaccine, inactivated 11/21/2016 Recorded influenza virus vaccine, inactivated 12/05/2014 Recorded Result Comment: Electronical ly Signed By: Shailesh Fajardo MD\.br\Date and Time Signed: 05/31/24 10:44 EDT PRE-VISIT PLANNING Observed: 05/31/2024 8:20 AM Status: C Source: [facility] Pre-Visit Planning From: Lauren Spencer To: Shailesh Fajardo MD; Sent: 05/31/2024 08:20:17 EDT Subject: Pre-Visit Planning Due Date/Time: 05/31/2024 08:20:00 EDT Caller Name: USMAN LING; Caller Number: Eliseo , Ivy [phone] Fajardo. During a pre-visit planning chart [...] feel free to contact me at extension [phone]. Thank you! Lauren Spencer LPN Clinical Cigar Inspector [place] [id number] Extension: [phone] [email or web address] From: Scotty CHAVARRIA, Shailesh Lopez To: Lauren Spencer; Sent: 05/31/2024 12:45:51 EDT Subject: RE: Pre-Visit Planning Caller Name: USMAN LING; Caller Number: Eliseo , M [phone] Pt cancelled apt tomorow. Came in today. After discussion would be major disorder recurrent moderate and pt continues to deal with bereavement. FAMILY MEDICINE OFFICE/CLINI C NOTE Observed: 04/06/2024 9:41 AM Status: F Source: [facility] Family Medicine Office/Clini c Note Chief Complaint 6wk follow up Concerns [...] Adorno's office, was evaluated by a Physician Bridge Inspector, and had X-rays performed. Though the suggestion of knee or hip surgery was given, the patient feels such interventions are currently unnecessary. She declined an injection, citing a lack of severity compared to previous episodes requiring such treatment. While no acute orthopedic intervention is needed now, the patient seeks reassurance of care in [place] if future flare-ups occur. - Discussion of [...] level of consciousness appropriate for age, CN II- XII intact, motor strength equal & normal bilaterally, [...] anxiety, # 60 tab(s), Refills(s) 0, Pharmacy: [id number], 168, cm, 04/06/24 9:14:00 EST, Height/Length [...] her about the availability of care should acute issues arise. We also discussed the benefit of her nonsmoking status. The patient agreed with the management plans and was encouraged to reach out if her physical or emotional symptoms change. Follow-up No qualifying data available Problem List/Past Medical History Ongoing Bereavement COVID-19 Depression Dizziness Frequent headaches History [...] Crm, 1 gm, Vaginal, qWeek, 6 refills ibuprofen, 200 mg, BID, PRN latanoprost ophthalmic, See Instructions nabumetone 500 mg Tab, 500 mg= 1 tab(s), BID ropinirole 1 mg Tab, See Instructions, 3 [...] Abuse - Denies Substance Abuse, 02/16/2024 Never., 03/04/2024 Tobacco - Denies Tobacco Use, 02/16/2024 Never (less than 100 in lifetime) Tobacco Use:. Never Smokeless Tobacco Use:. Household tobacco concerns: No. Yes, 04/06/2024 Family History Asthma: Mother. Cancer: Father. Diabetes: Father and Sister. Heart disease: Father. Immunizations Vaccine Date Status Comments influenza virus vaccine, inactivated 10/24/2023 Recorded influenza virus vaccine, inactivated 11/05/2022 Recorded influenza virus vaccine, inactivated 11/29/2021 Recorded SARS-CoV-2 (COVID-19) [id number] 11/29/2021 Recorded SARSCoV2 mRNA(ovtrpcnmj-ilah-uuidgy) vac 06/21/2021 Recorded SARS-CoV-2 (COVID-19) mRNA BNT-162b2 vax 12/06/2020 Recorded influenza virus vaccine, inactivated 10/02/2020 Recorded SARS-CoV-2 (COVID-19) mRNA BNT-162b2 vax 04/12/2020 Recorded 2022-10-16: TPV70 SARS-CoV-2 (COVID-19) mRNA BNT-162b2 vax 03/17/2020 Recorded 2022-10-16: TPV70 SARS-CoV-2 (COVID-19) mRNA BNT-162b2 vax 2020 Recorded zoster vaccine, inactivated 12/20/2019 Recorded influenza virus vaccine, inactivated 11/30/2018 Recorded influenza virus vaccine, inactivated 11/13/2017 Recorded pneumococcal 13-valent vaccine 11/21/2016 Recorded influenza virus vaccine, inactivated 11/21/2016 Recorded influenza virus vaccine, inactivated 12/05/2014 Recorded Result Comment: Electronical ly Signed By: Scotty CHAVARRIA, Shailesh Roper\Date and Time Signed: 04/06/24 09:41 EST AMBULATORY VISIT SUMMARY Observed: 04/06 9:38 AM Status: F Source: [facility] Ambulatory Visit Summary USMAN LING :1945 Visit Date:04/06/2024 Ambulatory Visit Instructions [...] AM EDT With: Shailesh Fajardo MD Where: [address] [id number]- Friday 9:30 AM EDT With: Cosme COLORADO MD Where: [facility] [address] [place] [address]- Friday 11:00 AM EST With: Where: [address] [address]- Medications What How Much When Instructions Unchanged [...] you for choosing us for your care. FAMILY MEDICINE OFFICE/CLINI C NOTE Observed: 03/04/2024 10:19 AM Status: F Source: [facility] Family Medicine Office/Clini c Note Chief Complaint 6m follow up HPI [...] Will follow up in 6 weeks. Ordered: [facility] External Ambulatory Referral 2. Depression (F32.A: Depression, unspecified) Elevated 2/2 number 1. Ordered: [facility] External Ambulatory Referral 3. Hypertension (I10: Essential (primary) hypertension) At goal. No issues at this time. Ordered: [facility] External Ambulatory Referral 4. Insomnia (G47.00: Insomnia, unspecified) Trouble 2/2 number1. Ordered: [facility] External Ambulatory Referral 5. Panic attacks (F41.0: Panic disorder [episodic paroxysmal anxiety]) Will refill the xanax. Ordered: [facility] External Ambulatory Referral 6. Knee pain, right [...] Abuse - Denies Substance Abuse, 02/16/2024 Never., 03/04/2024 Tobacco - Denies Tobacco Use, 02/16/2024 Never (less than 100 in lifetime) Tobacco Use:. Never Smokeless Tobacco Use:. Household tobacco concerns: No. Yes, 03/04/2024 Family History Asthma: Mother. Cancer: Father. Diabetes: Father and Sister. Heart disease: Father. Immunizations Vaccine Date Status Comments influenza virus vaccine, inactivated 10/24/2023 Recorded influenza virus vaccine, inactivated 11/05/2022 Recorded influenza virus vaccine, inactivated 11/29/2021 Recorded SARS-CoV-2 (COVID-19) mRNAMUL.ORD![id number] 11/29/2021 Recorded SARSCoV2 mRNA(byqzwmvfn-zkcn-pwidhg) vac 06/21/2021 Recorded SARS-CoV-2 (COVID-19) mRNA BNT-162b2 vax 12/06/2020 Recorded influenza virus vaccine, inactivated 10/02/2020 Recorded SARS-CoV-2 (COVID-19) mRNA BNT-162b2 vax 04/12/2020 Recorded 2022-10-16: TPV70 SARS-CoV-2 (COVID-19) mRNA BNT-162b2 vax 03/17/2020 Recorded 2022-10-16: TPV70 SARS-CoV-2 (COVID-19) mRNA BNT-162b2 vax 2020 Recorded zoster vaccine, inactivated 12/20/2019 Recorded influenza virus vaccine, inactivated 11/30/2018 Recorded influenza virus vaccine, inactivated 11/13/2017 Recorded pneumococcal 13-valent vaccine 11/21/2016 Recorded influenza virus vaccine, inactivated 11/21/2016 Recorded influenza virus vaccine, inactivated 12/05/2014 Recorded Result Comment: Electronical ly Signed By: Scotty CHAVARRIA, Shailesh Prado.br\Date and Time Signed: 03/04/24 10:19 EST AMBULATORY VISIT SUMMARY Observed: 03/04 10:16 AM Status: F Source: [facility] Ambulatory Visit Summary USMAN LING :1945 Visit Date:03/04/2024 Ambulatory Visit Instructions [...] AM EST With: Shailesh Fajardo MD Where: [address] [phone]- Friday 9:30 AM EDT With: Cosme COLORADO MD Where: [facility] [address] [place] [address]- Friday 11:00 AM EST With: Where: [address] [address]- Medications What How Much When Instructions Unchanged [...] you for choosing us for your care. U MA/CR RATIO Collected: 02/20/2024 8:27 AM Status: F Source: [facility] TYPE CODE TESTS RESULT OUT OF RANGE REFERENCE UNITS LAB 66392-9(LOINC) ALBUMIN:MCNC:P T:URINE:QN:DET ECTION LIMIT <= 20 MG/L 9.9 High 0.0-1.9 mg/dL LAB 39965458(LOINC) U Creatinine 64.5 Unknown mg/ dL LAB 53684-2(LOINC) ALBUMIN/CREATI NINE:MRTO:PT:U RINE:QN:DETECT ION LIMIT <= 20 MG/L 153.5 High .0-30.0 mg/gm Cr Result Comment: 30-300 mg/g Cr indicates an increased risk for diabetic nephropathy. >300 mg/g Cr is consistent with clinical nephropathy. Performed By: #### [id number] #### [facility] [address] [place] [address] CMP Collected: 02/20/2024 8:27 AM Status: F Source: [facility] TYPE CODE TESTS RESULT OUT OF RANGE REFERENCE UNITS LAB 2345-7([facility]) GLUCOSE:MCNC:P T:SER/PLAS:QN: 103 Normal 55-199 mg/dL LAB 3094-0([facility]) UREA NITROGEN:MCNC: PT:SER/PLAS:QN : 20 Normal 5-21 mg/dL LAB 2160-0([facility]) CREATININE:MCN C:PT:SER/PLAS: QN: 0.9 Normal 0.5-1.3 mg/dL LAB 90024-7([facility]) CALCIUM:MCNC:P T:SER/PLAS:QN: 9.6 Normal 8.9-11.1 mg/dL LAB 2951-2([facility]) SODIUM:SCNC:PT :SER/PLAS:QN: 143 Normal 135-145 mmol/L LAB 2823-3([facility]) POTASSIUM:SCNC :PT:SER/PLAS:Q N: 4.0 Normal 3.5-5.3 mmol/L LAB 2075-0([facility]) CHLORIDE:SCNC: PT:SER/PLAS:QN : 107 Normal 101-111 mmol/L LAB 2027-9([facility]) CARBON DIOXIDE:SCNC:P T:SER/PLAS:QN: 29 Normal 21-31 mmol/L LAB 6768-6([facility]) ALKALINE PHOSPHATASE:CC NC:PT:SER/PLAS :QN: 101 High 21-98 Int._Unit /L LAB 1974-2([facility]) BILIRUBIN:MCNC :PT:SER/PLAS:Q N: 0.6 Normal 0.0-1.1 mg/dL LAB 1751-7([facility]) ALBUMIN:MCNC:P T:SER/PLAS:QN: 4.2 Normal 3.3-5.0 gm/dL LAB 2885-2([facility]) PROTEIN:MCNC:P T:SER/PLAS:QN: 7.2 Normal 6.0-7.8 gm/dL LAB 1744-2([facility]) ALANINE AMINOTRANSFERA SE:CCNC:PT:SER /PLAS:QN:NO ADDITION OF P-5'-P 20 Normal 6-46 Int._Unit /L LAB 1920-8([facility]) ASPARTATE AMINOTRANSFERA SE:CCNC:PT:SER /PLAS:QN: 18 Normal 5-43 Int._Unit /L LAB 3097-3([facility]) UREA NITROGEN/CREAT ININE:MRTO:PT: SER/PLAS:QN: 22 High 10-20 No Units LAB 95196-6([facility]) ANION GAP:SCNC:PT:SE R/PLAS:QN: 11 Normal 6-16 mEq/L LAB 38770-9([facility]) GLOBULIN:MCNC: PT:SER:QN:CALC ULATED 3.0 Normal 1.4-4.0 gm/dL LAB 62382-9([facility]) ALBUMIN/GLOBUL IN:MCRTO:PT:SE R:QN: 1.4 Normal 1.1-2.2 Performed By: #### [id number] # ### [facility] [address] [place] [address] LIPID PANEL Collected: 02/20/2024 8:27 AM Status: F Source: [facility] TYPE CODE TESTS RESULT OUT OF RANGE REFERENCE UNITS LAB 2092-04([facility]) CHOLESTEROL:M CNC:PT:SER/PL :QN: 228 High 120-200 mg/dL LAB 2084-10([facility]) CHOLESTEROL.I N HDL:MCNC:PT:S ER/PLAS:QN: 93 Unknown mg/dL Result Comment: '>= 60 LOW R ISK' '<= 40 HIGH RISK' LAB 2088-02([facility]) CHOLESTEROL.I N LDL:MCNC:PT:S ER/PLAS:QN: 113 Normal <=129 mg/dL LAB 2571-8([facility]) TRIGLYCERIDE: MCNC:PT:SER/P LAS:QN: 91 Normal <=149 mg/dL LAB 65605-3([facility]) CHOLESTEROL.I N VLDL:MCNC:PT: SER/PLAS:QN:C ALCULATED 18 Normal 7-40 mg/dL Performed By: #### [id number] # ### [facility] [address] [place] [address] EGFR Collected: 8:27 AM Status: F Source: [facility] TYPE CODE TESTS RESULT OUT OF RANGE REFERENCE UNITS LAB 72243393(INC) eGFR 65 Normal >=59 mL/min/1 .7 3 m2 Performed By: #### [id number] #### [facility] [address] [place] [address] AMBULATORY VISIT SUMMARY Observed: 02/15 12:13 PM Status: F Source: [facility] Ambulatory Visit Summary USMAN LING :1945 Visit Date:02/16/2024 Ambulatory Visit Instructions [...] Appointments Friday 8:20 AM EST With: Where: [address] [address] 2024 9:15 AM EST With: Scotty CHAVARRIA, Shailesh Lopez Where: [address] [address]- Friday 9:30 AM EDT With: STANISLAV CHAVARRIA, Cosme Paul Where: [facility] [address] [place] [address]- Friday 11:00 AM EST With: Where: [address] [address]- You Need to Complete the Following Comprehensive Metabolic Panel, Blood, Routine collect, 02/16/24, Order for future visit, Lab Collect, Hypertension, Print Label By Order Location Lipid Panel, Blood, Routine collect, 02/16/24, Order for future visit, Lab Collect, Screening for ischemic heart disease, Print Label By Order Location Urine Microalbumin/Creatinine Ratio, Urine, Routine collect, 02/16/24, Order for [...] extra glucose to build up in the blood instead of going into cells. As a result, high blood glucose (hyperglycemia) develops. That can cause many complications. Being overweight or obese and having an inactive (sedentary) lifestyle can increase your risk for diabetes. Type 2 diabetes can be delayed or prevented by making certain nutrition and lifestyle changes. How can this condition affect me? If you do not take steps to prevent diabetes, your blood glucose levels may keep increasing over time. Too much glucose in your blood for a long time can damage your blood vessels, heart, kidneys, nerves, and eyes. Type 2 diabetes can lead to chronic health problems and complications, such as: ??? Heart disease. ??? Stroke. ??? Blindness. ??? Kidney disease. ??? Depression. ??? Poor circulation in your feet and legs. In severe cases, a foot or leg may need to be surgically removed (amputated). What can increase my risk? You may be more likely to develop type 2 diabetes if you: ??? Have type 2 diabetes in your family. ??? Are overweight or obese. ??? Have a sedentary lifestyle. ??? Have insulin resistance or a history of prediabetes. ??? Have a history of -related (gestational) diabetes or polycystic ovary syndrome (PCOS). What actions can I take to prevent this? It can be difficult to recognize signs of type 2 diabetes. Taking action to prevent the disease before you develop symptoms is the best way to avoid possible damage to your body. Making certain nutrition and lifestyle changes may prevent or delay the disease and related health problems. Nutrition ??? Eat healthy meals and snacks regularly. Do not skip meals. Fruit or a handful of nuts is a healthy snack between meals. ??? Drink water throughout the day. Avoid drinks that contain added sugar, such as soda or sweetened tea. Drink enough fluid to keep your urine pale yellow. ??? Follow instructions from your health care provider about eating or drinking restrictions. ??? Limit the amount of food you eat by: ? Managing how much you eat at a time (portion size). ? Checking food labels for the serving sizes of food. ? Using a kitchen scale to weigh amounts of food. ??? Saut??? or steam food instead of frying it. Cook with water or broth instead of oils or butter. ??? Limit saturated fat and salt (sodium) in your diet. Have no more than 1 tsp (2,400 mg) of sodium a day. If you have heart disease or high blood pressure, use less than ? tsp (1,500 mg) of sodium a day. Lifestyle ??? Lose weight if needed and as told. Your health care provider can determine how much weight loss is best for you and can help you lose weight safely. ??? If you are overweight or obese, you may be told to lose at least 5?7% of your body weight. ??? Manage blood pressure, cholesterol, and stress. Your health care provider will help determine the best treatment for you. ??? Do not use any products that contain nicotine or tobacco. These products include cigarettes, chewing tobacco, and vaping devices, such as e-cigarettes. If you need help quitting, ask your health care provider. Activity ??? Do physical activity that makes your heart beat faster and makes you sweat (moderate intensity). Do this for at least 30 minutes on at least 5 days of the week, or as much as told by your health care provider. ??? Ask your health care provider what activities are safe for you. A mix of activities may be best, such as walking, swimming, cycling, and strength training. ??? Try to add physical activity into your day. For example: ? Park your car farther away than usual so that you walk more. ? Take a walk during your lunch break. ? Use stairs instead of elevators or escalators. ? Walk or bike to work instead of driving. Alcohol use If you drink alcohol: ??? Limit how much you have to: ? 0?1 drink a day for women who are not . ? 0?2 drinks a day for men. ??? Know how much alcohol is in your drink. In the [place] one drink equals one 12 oz bottle of beer (355 mL), one 5 oz glass of wine (148 mL), or one 1??? oz glass of hard liquor (44 mL). General information ??? Talk with your health care provider about your risk factors and how you can reduce your risk for diabetes. ??? Have your blood glucose tested regularly, as told by your health care provider. ??? Get screening tests as told by your health care provider. You may have these regularly, especially if you have certain risk factors for type 2 diabetes. ??? Make an appointment with a registered dietitian. This diet and food and nutrition professor can help you make a healthy eating plan and help you understand portion sizes and food labels. Where to find support ??? Ask your health care provider to recommend a registered dietitian, a certified diabetes care and educational psychology teacher, or a weight loss program. ??? Look for local or online weight loss groups. ??? Join a gym, fitness club, or outdoor activity group, such as a walking club. Where to find more information For help and guidance and to learn more about diabetes and diabetes prevention, visit: ??? [place] Diabetes Association (ADA): www.diabetes.org ??? National [place] of Diabetes and Digestive and Kidney Diseases: www.niddk.nih.gov To learn more about healthy eating, visit: ??? U.S. Department of Agriculture ([place]): www.HooftyMatchmyplate.gov ??? Office of Disease Prevention and Health Promotion (ODPHP): health.gov Summary ??? You can delay or prevent type 2 diabetes by eating healthy foods, losing weight if needed, and increasing your physical activity. ??? Talk with your health care provider about your risk factors for type 2 diabetes and how you can reduce your risk. ??? It can be difficult to recognize the signs of type 2 diabetes. The best way to avoid possible damage to your body is to take action to prevent the disease before you develop symptoms. ??? Get screening tests as told by your health care provider. This information is not intended to replace advice given to you by your health care provider. Make sure you discuss any questions you have with your health care provider. Document Revised: 04/30/2021 Document Reviewed: 04/30/2021 [employer] Patient Education ??? 2023 [employer] Managing Anxiety, Adult After being diagnosed with anxiety, you may be relieved to know why you have felt or behaved a certain way. You may also feel overwhelmed about the treatment ahead and what it will mean for your life. With care and support, you can manage your anxiety. How to manage lifestyle changes Understanding the difference between stress and anxiety Although stress can play a role in anxiety, it is not the same as anxiety. Stress is your body's reaction to life changes and events, both good and bad. Stress is often caused by something external, such as a deadline, test, or competition. It normally goes away after the event has ended and will last just a few hours. But, stress can be ongoing and can lead to more than just stress. Anxiety is caused by something internal, such as imagining a terrible outcome or worrying that something will go wrong that will greatly upset you. Anxiety often does not go away even after the event is over, and it can become a long-term (chronic) worry. Lowering stress and anxiety Talk with your health care provider or a counselor to learn more about lowering anxiety and stress. They may suggest tension-reduction techniques, such as: ??? Music. Spend time creating or listening to music that you enjoy and that inspires you. ??? Mindfulness-based meditation. Practice being aware of your normal breaths while not trying to control your breathing. It can be done while sitting or walking. ??? Centering prayer. Focus on a word, phrase, or sacred image that means something to you and brings you peace. ??? Deep breathing. Expand your stomach and inhale slowly through your nose. Hold your breath for 3???5 seconds. Then breathe out slowly, letting your stomach muscles relax. ??? Self-talk. Learn to notice and spot thought patterns that lead to anxiety reactions. Change those patterns to thoughts that feel peaceful. ??? Muscle relaxation. Take time to tense muscles and then relax them. Choose a tension-reduction technique that fits your lifestyle and personality. These techniques take time and practice. Set aside 5???15 minutes a day to do them. Specialized therapists can offer counseling and training in these techniques. The training to help with anxiety may be covered by some insurance plans. Other things you can do to manage stress and anxiety include: ??? Keeping a stress diary. This can help you learn what triggers your reaction and then learn ways to manage your response. ??? Thinking about how you react to certain situations. You may not be able to control everything, but you can control your response. ??? Making time for activities that help you relax and not feeling guilty about spending your time in this way. ??? Doing visual imagery. This involves imagining or creating mental pictures to help you relax. ??? Practicing yoga. Through yoga poses, you can lower tension and relax. Medicines Medicines for anxiety include: ??? Antidepressant medicines. These are usually prescribed for long-term daily control. ??? Anti-anxiety medicines. These may be added in severe cases, especially when panic attacks occur. When used together, medicines, psychotherapy, and tension-reduction techniques may be the most effective treatment. Relationships Relationships can play a big part in helping you recover. Spend more time connecting with trusted friends and family members. Think about going to couples counseling if you have a partner, taking family education classes, or going to family therapy. Therapy can help you and others better understand your anxiety. How to recognize changes in your anxiety Everyone responds differently to treatment for anxiety. Recovery from anxiety happens when symptoms lessen and stop interfering with your daily life at home or work. This may mean that you will start to: ??? Have better concentration and focus. Worry will interfere less in your daily thinking. ??? Sleep better. ??? Be less irritable. ??? Have more energy. ??? Have improved memory. Try to recognize when your condition is getting worse. Contact your provider if your symptoms interfere with home or work and you feel like your condition is not improving. Follow these instructions at home: Activity ??? Exercise. Adults should: ? Exercise for at least 150 minutes each week. The exercise should increase your heart rate and make you sweat (moderate-intensity exercise). ? Do strengthening exercises at least twice a week. ??? Get the right amount and quality of sleep. Most adults need 7???9 hours of sleep each night. Lifestyle ??? Eat a healthy diet that includes plenty of vegetables, fruits, whole grains, low-fat dairy products, and lean protein. ? Do not eat a lot of foods that are high in fats, added sugars, or salt (sodium). ??? Make choices that simplify your life. ??? Do not use any products that contain nicotine or tobacco. These products include cigarettes, chewing tobacco, and vaping devices, such as e-cigarettes. If you need help quitting, ask your provider. ??? Avoid caffeine, alcohol, and certain qqky-giv-eranayg cold medicines. These may make you feel worse. Ask your pharmacist which medicines to avoid. General instructions ??? Take upud-gug-lslqngz and prescription medicines only as told by your provider. ??? Keep all follow-up visits. This is to make sure you are managing your anxiety well or if you need more support. Where to find support You can get help and support from: ??? Self-help groups. ??? Online and community organizations. ??? A trusted spiritual leader. ??? Couples counseling. ??? Family education classes. ??? Family therapy. Where to find more information You may find that joining a support group helps you deal with your anxiety. The following sources can help you find counselors or support groups near you: ??? Mental Health [place]: mentalhealthamerica.net ??? Anxiety and Depression Association of [place] (ADAA): adaa.org ??? National [place] on Mental Illness (TRAVIS): travis.org Contact a health care provider if: ??? You have a hard time staying focused or finishing tasks. ??? You spend many hours a day feeling worried about everyday life. ??? You are very tired because you cannot stop worrying. ??? You start to have headaches or often feel tense. ??? You have chronic nausea or diarrhea. Get help right away if: ??? Your heart feels like it is racing. ??? You have shortness of breath. ??? You have thoughts of hurting yourself or others. Get help right away if you feel like you may hurt yourself or others, or have thoughts about taking your own life. Go to your nearest emergency room or: ??? Call 911. ??? Call the National Suicide Prevention Lifeline at or 104. This is open 24 hours a day. ??? Text the Crisis Text Line at 891147. This information is not intended to replace advice given to you by your health care provider. Make sure you discuss any questions you have with your health care provider. Document Revised: 11/12/2022 Document Reviewed: 05/27/2021 [employer] Patient Education ??? 2023 [employer] Managing Depression, Adult Depression is a mental health condition that affects your thoughts, feelings, and actions. Being diagnosed with depression can bring you relief if you did not know why you have felt or behaved a certain way. It could also leave you feeling overwhelmed. Finding ways to manage your symptoms can help you feel more positive about your future. How to manage lifestyle changes Being depressed is difficult. Depression can increase the level of everyday stress. Stress can make depression symptoms worse. You may believe your symptoms cannot be managed or will never improve. However, there are many things you can try to help manage your symptoms. There is hope. Managing stress Stress is your body's reaction to life changes and events, both good and bad. Stress can add to your feelings of depression. Learning to manage your stress can help lessen your feelings of depression. Try some of the following approaches to reducing your stress (stress reduction techniques): ??? Listen to music that you enjoy and that inspires you. ??? Try using a meditation anu or take a meditation class. ??? Develop a practice that helps you connect with your spiritual self. Walk in nature, pray, or go to a place of muslim. ??? Practice deep breathing. To do this, inhale slowly through your nose. Pause at the top of your inhale for a few seconds and then exhale slowly, letting yourself relax. Repeat this three or four times. ??? Practice yoga to help relax and work your muscles. Choose a stress reduction technique that works for you. These techniques take time and practice to develop. Set aside 5???15 minutes a day to do them. Therapists can offer training in these techniques. Do these things to help manage stress: ??? Keep a journal. ??? Know your limits. Set healthy boundaries for yourself and others, such as saying no when you think something is too much. ??? Pay attention to how you react to certain situations. You may not be able to control everything, but you can change your reaction. ??? Add humor to your life by watching funny movies or shows. ??? Make time for activities that you enjoy and that relax you. ??? Spend less time using electronics, especially at night before bed. The light from screens can make your brain think it is time to get up rather than go to bed. Medicines Medicines, such as antidepressants, are often a part of treatment for depression. ??? Talk with your pharmacist or health care provider about all the medicines, supplements, and herbal products that you take, their possible side effects, and what medicines and other products are safe to take together. ??? Make sure to report any side effects you may have to your health care provider. Relationships Your health care provider may suggest family therapy, couples therapy, or individual therapy as part of your treatment. How to recognize changes Everyone responds differently to treatment for depression. As you recover from depression, you may start to: ??? Have more interest in doing activities. ??? Feel more hopeful. ??? Have more energy. ??? Eat a more regular amount of food. ??? Have better mental focus. It is important to recognize if your depression is not getting better or is getting worse. The symptoms you had in the beginning may return, such as: ??? Feeling tired. ??? Eating too much or too little. ??? Sleeping too much or too little. ??? Feeling restless, agitated, or hopeless. ??? Trouble focusing or making decisions. ??? Having unexplained aches and pains. ??? Feeling irritable, angry, or aggressive. If you or your family members notice these symptoms coming back, let your health care provider know right away. Follow these instructions at home: Activity ??? Try to get some form of exercise each day, such as walking. ??? Try yoga, mindfulness, or other stress reduction techniques. ??? Participate in group activities if you are able. Lifestyle ??? Get enough sleep. ??? Cut down on or stop using caffeine, tobacco, alcohol, and any other harmful substances. ??? Eat a healthy diet that includes plenty of vegetables, fruits, whole grains, low-fat dairy products, and lean protein. Limit foods that are high in solid fats, added sugar, or salt (sodium). General instructions ??? Take fztr-krz-istsaka and prescription medicines only as told by your health care provider. ??? Keep all follow-up visits. It is important for your health care provider to check on your mood, behavior, and medicines. Your health care provider may need to make changes to your treatment. Where to find support Talking to others Friends and family members can be sources of support and guidance. Talk to trusted friends or family members about your condition. Explain your symptoms and let them know that you are working with a health care provider to treat your depression. Tell friends and family how they can help. Finances ??? Find mental health providers that fit with your financial situation. ??? Talk with your health care provider if you are worried about access to food, housing, or medicine. ??? Call your insurance company to learn about your co-pays and prescription plan. Where to find more information You can find support in your area from: ??? Anxiety and Depression Association of [place] (ADAA): adaa.org ??? Mental Health [place]: mentalhealthamerica.net ??? National [place] on Mental Illness: travis.org Contact a health care provider if: ??? You stop taking your antidepressant medicines, and you have any of these symptoms: ? Nausea. ? Headache. ? Light-headedness. ? Chills and body aches. ? Not being able to sleep (insomnia). ??? You or your friends and family think your depression is getting worse. Get help right away if: ??? You have thoughts of hurting yourself or others. Get help right away if you feel like you may hurt yourself or others, or have thoughts about taking your own life. Go to your nearest emergency room or: ??? Call 911. ??? Call the National Suicide Prevention Lifeline at or 519. This is open 24 hours a day. ??? Text the Crisis Text Line at 543202. This information is not intended to replace advice given to you by your health care provider. Make sure you discuss any questions you have with your health care provider. Document Revised: 06/11/2022 Document Reviewed: 06/11/2022 [employer] Patient Education ??? 2023 [employer] Heart Attack A heart attack occurs when blood and oxygen supply to the heart is cut off. A heart attack can cause damage to the heart that cannot be fixed. A heart attack is also called a myocardial infarction, or MT. If you think you are having a [...] these instructions at home: Medicines ??? Take fqgn-bnj-qlrcxsf and prescription medicines only as told by [...] Limit how much you have to: ? 0???1 drink a day for women. ? 0???2 drinks a day for men. ? Know how much alcohol is in your drink. In the [place] one drink equals one 12 oz bottle of beer (355 mL), one 5 oz glass of wine (148 mL), or one 1??? oz glass of hard liquor (44 mL). [...] may vomit or you vomit. ??? You feel tired or weak. ??? You feel your heart beating fast. ??? You feel your heart skipping beats. ??? You have blood pressure that is higher than 180/120. These symptoms may be an emergency. Get help right away. Call your local emergency services (911 in the [place] ??? Do not wait to see if the symptoms will go away. ??? Do not drive yourself to the hospital. Summary ??? A heart attack occurs when blood and oxygen supply to the heart is cut off. ??? Do not take NSAIDs unless your doctor says it is okay. ??? Do not smoke. Avoid secondhand smoke. ??? Exercise regularly. Ask your doctor about a cardiac rehab program. This information is not intended to replace advice given to you by your health care provider. Make sure you discuss any questions you have with your health care provider. Document Revised: 07/26/2021 Document Reviewed: 07/26/2021 [employer] Patient Education ??? 2023 [employer] DASH Eating Plan DASH stands for Dietary Approaches to Stop Hypertension. The DASH eating plan is a healthy eating plan that has been shown to: ??? Lower high blood pressure (hypertension). ??? Reduce your risk for type 2 diabetes, heart disease, and stroke. ??? Help with weight loss. What are tips for following this plan? Reading food labels ??? Check food labels for the amount of salt (sodium) per serving. Choose foods with less than 5 percent of the Daily Value (DV) of sodium. In general, foods with less than 300 milligrams (mg) of sodium per serving fit into this eating plan. ??? To find whole grains, look for the word whole as the first word in the ingredient list. Shopping ??? Buy products labeled as low-sodium or no salt added. ??? Buy fresh foods. Avoid canned foods and pre-made or frozen meals. Cooking ??? Try not to add salt when you cook. Use salt-free seasonings or herbs instead of table salt or sea salt. Check with your health care provider or pharmacist before using salt substitutes. ??? Do not dudley foods. Cook foods in healthy ways, such as baking, boiling, grilling, roasting, or broiling. ??? Cook using oils that are good for your heart. These include olive, canola, avocado, soybean, and sunflower oil. Meal planning ??? Eat a balanced diet. This should include: ? 4 or more servings of fruits and 4 or more servings of vegetables each day. Try to fill half of your plate with fruits and vegetables. ? 6???8 servings of whole grains each day. ? 6 or less servings of lean meat, poultry, or fish each day. 1 oz is 1 serving. A 3 oz (85 g) serving of meat is about the same size as the palm of your hand. One egg is 1 oz (28 g). ? 2???3 servings of low-fat dairy each day. One serving is 1 cup (237 mL). ? 1 serving of nuts, seeds, or beans 5 times each week. ? 2???3 servings of heart-healthy fats. Healthy fats called omega-3 fatty acids are found in foods such as walnuts, flaxseeds, fortified milks, and eggs. These fats are also found in cold-water fish, such as sardines, salmon, and mackerel. ??? Limit how much you eat of: ? Canned or prepackaged foods. ? Food that is high in trans fat, such as fried foods. ? Food that is high in saturated fat, such as fatty meat. ? Desserts and other sweets, sugary drinks, and other foods with added sugar. ? Full-fat dairy products. ??? Do not salt foods before eating. ??? Do not eat more than 4 egg yolks a week. ??? Try to eat at least 2 vegetarian meals a week. ??? Eat more home-cooked food and less restaurant, buffet, and fast food. Lifestyle ??? When eating at a restaurant, ask if your food can be made with less salt or no salt. ??? If you drink alcohol: ? Limit how much you have to: ? 0???1 drink a day if you are female. ? 0???2 drinks a day if you are male. ? Know how much alcohol is in your drink. In the [place] one drink is one 12 oz bottle of beer (355 mL), one 5 oz glass of wine (148 mL), or one 1??? oz glass of hard liquor (44 mL). General information ??? Avoid eating more than 2,300 mg of salt a day. If you have hypertension, you may need to reduce your sodium intake to 1,500 mg a day. ??? Work with your provider to stay at a healthy body weight or lose weight. Ask what the best weight range is for you. ??? On most days of the week, get at least 30 minutes of exercise that causes your heart to beat faster. This may include walking, swimming, or biking. ??? Work with your provider or dietitian to adjust your eating plan to meet your specific calorie needs. What foods should I eat? Fruits All fresh, dried, or frozen fruit. Canned fruits that are in their natural juice and do not have sugar added to them. Vegetables Fresh or frozen vegetables that are raw, steamed, roasted, or grilled. Low- sodium or reduced-sodium tomato and vegetable juice. Low-sodium or reduced-sodium tomato sauce and tomato paste. Low-sodium or reduced-sodium canned vegetables. Grains Whole-grain or whole-wheat bread. Whole-grain or whole-wheat pasta. Brown rice. Oatmeal. Quinoa. Bulgur. Whole-grain and low-sodium cereals. Dia bread. Low- fat, low-sodium crackers. Whole-wheat flour tortillas. Meats and other proteins Skinless chicken or turkey. Ground chicken or turkey. Pork with fat trimmed off. Fish and seafood. Egg whites. Dried beans, peas, or lentils. Unsalted nuts, nut butters, and seeds. Unsalted canned beans. Lean cuts of beef with fat trimmed off. Low- sodium, lean precooked or cured meat, such as sausages or meat loaves. Dairy Low-fat (1%) or fat-free (skim) milk. Reduced-fat, low-fat, or fat-free cheeses. Nonfat, low-sodium ricotta or cottage cheese. Low-fat or nonfat yogurt. Low-fat, low-sodium cheese. Fats and oils Soft margarine without trans fats. Vegetable oil. Reduced-fat, low-fat, or light mayonnaise and salad dressings (reduced-sodium). Canola, safflower, olive, avocado, soybean, and sunflower oils. Avocado. Seasonings and condiments Herbs. Spices. Seasoning mixes without salt. Other foods Unsalted popcorn and pretzels. Fat-free sweets. The items listed above may not be all the foods and drinks you can have. Talk to a dietitian to learn more. What foods should I avoid? Fruits Canned fruit in a light or heavy syrup. Fried fruit. Fruit in cream or butter sauce. Vegetables Creamed or fried vegetables. Vegetables in a cheese sauce. Regular canned vegetables that are not marked as low-sodium or reduced-sodium. Regular canned tomato sauce and paste that are not marked as low-sodium or reduced-sodium. Regular tomato and vegetable juices that are not marked as low-sodium or reduced-sodium. Pickles. Olives. Grains Baked goods made with fat, such as croissants, muffins, or some breads. Dry pasta or rice meal packs. Meats and other proteins Fatty cuts of meat. Ribs. Fried meat. Bates. Bologna, salami, and other precooked or cured meats, such as sausages or meat loaves, that are not lean and low in sodium. Fat from the back of a pig (fatback). Bratwurst. Salted nuts and seeds. Canned beans with added salt. Canned or smoked fish. Whole eggs or egg yolks. Chicken or turkey with skin. Dairy Whole or 2% milk, cream, and rqwt-uzr-abon. Whole or full-fat cream cheese. Whole-fat or sweetened yogurt. Full-fat cheese. Nondairy creamers. Whipped toppings. Processed cheese and cheese spreads. Fats and oils Butter. Stick margarine. Lard. Shortening. Ghee. Bates fat. Tropical oils, such as coconut, palm kernel, or palm oil. Seasonings and condiments Onion salt, garlic salt, seasoned salt, table salt, and sea salt. Worcestershire sauce. Tartar sauce. Barbecue sauce. Teriyaki sauce. Soy sauce, including reduced-sodium soy sauce. Steak sauce. Canned and packaged gravies. Fish sauce. Oyster sauce. Cocktail sauce. Store-bought horseradish. Ketchup. Mustard. Meat flavorings and tenderizers. Bouillon cubes. Hot sauces. Pre-made or packaged marinades. Pre-made or packaged taco seasonings. Relishes. Regular salad dressings. Other foods Salted popcorn and pretzels. The items listed above may not be all the foods and drinks you should avoid. Talk to a dietitian to learn more. Where to find more information ??? National Heart, Lung, and Blood [place] (NHLBI): nhlbi.nih.gov ??? [place] Heart Association (AHA): heart.org ??? Academy of Nutrition and Dietetics: eatright.org ??? National Kidney Foundation (NKF): kidney.org This information is not intended to replace advice given to you by your health care provider. Make sure you discuss any questions you have with your health care provider. Document Revised: 02/20/2023 Document Reviewed: 02/20/2023 [employer] Patient Education ??? 2023 [employer]. FAMILY MEDICINE OFFICE/CLINI C NOTE Observed: 02/16/2024 12:12 PM Status: F Source: [facility] Medicine Office/Clini c Note Chief Complaint Subsequent Medicare Wellness Review [...] of clutter to prevent tripping and/or falling. [place] Advance Directives reviewed. See #6. Patient denies [...] PCP visit. Labs to be completed with [facility]. No concerns with bowel/ bladder. Colonoscopy screening [...] Reviewed additional signs/symptoms to monitor for and report to provider. 4. Panic attacks (F41.0: Panic disorder [episodic paroxysmal anxiety]) Patient takes alprazolam as needed. voices that she only takes medication when it gets really bad . ADRIANNE-7 screening completed today with a score of 16. Follows with PCP as directed for management and symptom control. Denies any suicidal ideations at this time. Education provided, stress management and relaxation techniques reviewed. Will continue to follow with PCP and communicate any changes of increased anxiety. Reviewed additional signs/symptoms to monitor for and report to provider. 5. Screening declined by patient (Z53.20: Procedure and treatment not carried out because of patient's decision for unspecified reasons) Patient declines Dexa Scan at this time. 6. Advanced directives, counseling/discussion (Z71.89: Other specified counseling) Spent 18 minutes with patient. Juanis explanation of ADVANCED CARE PLANNING for end of life reviewed. Discussion included handout Planning for Important Health Care Decisions with explanations regarding different decisions to discuss with their chosen representatives. Explained the role each field service representative would play, encouraged patient to select 2 people with one being the primary and the other for an alternate. Discussed importance of reviewing forms with her family so that they are aware of her decision. This would be the time to implement plans to ensure specific wishes are honored and if there would be questions from the family these could be discussed for a better understanding. Patient does voice understanding that these forms would be effective if the patient is unable to speak, types of medical care and desired comfort level that is preferred to improve care at the end of life . Reminded patient the these forms may be revoked at any time and in any manner. Patient would like to take home and discuss with family before completing. Reminded patient upon completion to bring copy into the office and we will scan them into their medical chart. If unable to have 2 witnesses or notary available while signing these forms, patient to complete everything but their final signature. We can have 2 witnesses available here in the office to assist patient. Once scanned into medical chart, forms are returned to patient and reminded to give a copy to selected representatives. ID card provided for patient to fill out with their name as well as their representatives information. Check off which forms they have in place and where they have it on file. 7. Family history of diabetes mellitus (Z83.3: Family history of diabetes mellitus) Patient screened for diabetes with risk score of 5, discussed family history with increased risk for diabetes. DM stoplight handout reviewed with symptoms to monitor for and report to PCP. Reminded pt importance with healthy nutritional intake to keep glucose under good control, handout provided with healthy dietary choices to review. Will continue to f/u with PCP during office visits. Blood work repeated as directed. 8. Screening for ischemic heart disease (Z13.6: Encounter for screening for cardiovascular disorders) LIPID screening ordered. Follow-up No qualifying data available Patient Education Preventing Type 2 Diabetes Mellitus Managing Anxiety, Adult Managing Depression, Adult Heart Attack, Iqel-do-Ltpm DASH Eating Plan Problem List/Past Medical History Ongoing BMI 23.0-23.9, adult BMI 26.0-26.9,adult COVID-19 Depression [...] 1 gm, Vaginal, qWeek, 6 refills, Not taking gabapentin 300 mg Cap, 300 mg= 1 cap(s), Oral, BID hydrochlorothiazide 25 mg Tab, 25 mg= 1 tab(s), Oral, Daily, 1 refills, Not taking ibuprofen, 200 mg, BID, PRN latanoprost ophthalmic, See Instructions nabumetone 500 mg Tab, 500 mg= 1 tab(s), BID ropinirole 1 mg Tab, See Instructions venlafaxine 150 mg Cap-ER, 150 mg= 1 cap(s), Oral, Daily, 3 refills venlafaxine 75 mg Cap-ER, 75 mg= 1 cap(s), Oral, Daily, 3 refills verapamil 180 mg Cap-ER, See Instructions, 3 refills Xanax 0.5 mg Tab, 0.5 mg= 1 tab(s), Oral, TID, PRN Allergies Latex (Itching, Rash) sulfa drugs (Hyper) Social History Alcohol Current, Wine, Liquor, 1-2 times per week, Household alcohol concerns: No., 02/16/2024 Substance Abuse - Denies Substance Abuse, 02/16/2024 Tobacco - Denies Tobacco Use, 02/16/2024 Never (less than 100 in lifetime) Tobacco Use:. Never Smokeless Tobacco Use:. Household tobacco concerns: No., 02/16/2024 Family History Asthma: Mother. Cancer: Father. Diabetes: Father and Sister. Heart disease: Father. Immunizations Vaccine Date Status Comments influenza virus vaccine, inactivated 10/24/2023 Recorded influenza virus vaccine, inactivated 11/05/2022 Recorded influenza virus vaccine, inactivated 11/29/2021 Recorded SARS-CoV-2 (COVID-19) [id number] 11/29/2021 Recorded SARSCoV2 mRNA(eaustvnzw-vgfu-ghzxcm) vac 06/21/2021 Recorded SARS-CoV-2 (COVID-19) mRNA BNT-162b2 vax 12/06/2020 Recorded influenza virus vaccine, inactivated 10/02/2020 Recorded SARS-CoV-2 (COVID-19) mRNA BNT-162b2 vax 04/12/2020 Recorded 2022-10-16: TPV70 SARS-CoV-2 (COVID-19) mRNA BNT-162b2 vax 03/17/2020 Recorded 2022-10-16: TPV70 SARS-CoV-2 (COVID-19) mRNA BNT-162b2 vax 2020 Recorded zoster vaccine, inactivated 12/20/2019 Recorded influenza virus vaccine, inactivated 11/30/2018 Recorded influenza virus vaccine, inactivated 11/13/2017 Recorded pneumococcal 13-valent vaccine 11/21/2016 Recorded influenza virus vaccine, inactivated 11/21/2016 Recorded influenza virus vaccine, inactivated 12/05/2014 Recorded Result Comment: Electronical ly Signed By: JOCELIN GUAMAN CNP\.br\Date and Time Signed: 02/16/24 13:54 EST\.br\Electronically Co-Signed By: Heather Perez.br\Date and Time Co-Signed: 02/16/24 12:13 EST PATIENT EDUCATION Observed: 02/16/2024 12:12 PM Status: C Source: [facility] Patient Education Emergency Medicine Heart Attack A heart attack occurs when blood and oxygen supply to the heart is cut off. A heart attack can cause damage to the heart that cannot be fixed. A heart attack is also called a myocardial infarction, or MT. If you think you are having a [...] these instructions at home: Medicines ??? Take suyt-dxq-eluzltv and prescription medicines only as told by [...] may vomit or you vomit. ??? You feel tired or weak. ??? You feel your heart beating fast. ??? You feel your heart skipping beats. ??? You have blood pressure that is higher than 180/120. These symptoms may be an emergency. Get help right away. Call your local emergency services (911 in the [place] ??? Do not wait to see if the symptoms will go away. ??? Do not drive yourself to the hospital. Summary ??? A heart attack occurs when blood and oxygen supply to the heart is cut off. ??? Do not take NSAIDs unless your doctor says it is okay. ??? Do not smoke. Avoid secondhand smoke. ??? Exercise regularly. Ask your doctor about a cardiac rehab program. This information is not intended to replace advice given to you by your health care provider. Make sure you discuss any questions you have with your health care provider. Document Revised: 07/26/2021 Document Reviewed: 07/26/2021 [employer] Patient Education ? 2023 [employer].Endocrinology Preventing Type 2 Diabetes Mellitus Type 2 [...] extra glucose to build up in the blood instead of going into cells. As a result, high blood glucose (hyperglycemia) develops. That can cause many complications. Being overweight or obese and having an inactive (sedentary) lifestyle can increase your risk for diabetes. Type 2 diabetes can be delayed or prevented by making certain nutrition and lifestyle changes. How can this condition affect me? If you do not take steps to prevent diabetes, your blood glucose levels may keep increasing over time. Too much glucose in your blood for a long time can damage your blood vessels, heart, kidneys, nerves, and eyes. Type 2 diabetes can lead to chronic health problems and complications, such as: ??? Heart disease. ??? Stroke. ??? Blindness. ??? Kidney disease. ??? Depression. ??? Poor circulation in your feet and legs. In severe cases, a foot or leg may need to be surgically removed (amputated). What can increase my risk? You may be more likely to develop type 2 diabetes if you: ??? Have type 2 diabetes in your family. ??? Are overweight or obese. ??? Have a sedentary lifestyle. ??? Have insulin resistance or a history of prediabetes. ??? Have a history of -related (gestational) diabetes or polycystic ovary syndrome (PCOS). What actions can I take to prevent this? It can be difficult to recognize signs of type 2 diabetes. Taking action to prevent the disease before you develop symptoms is the best way to avoid possible damage to your body. Making certain nutrition and lifestyle changes may prevent or delay the disease and related health problems. Nutrition ??? Eat healthy meals and snacks regularly. Do not skip meals. Fruit or a handful of nuts is a healthy snack between meals. ??? Drink water throughout the day. Avoid drinks that contain added sugar, such as soda or sweetened tea. Drink enough fluid to keep your urine pale yellow. ??? Follow instructions from your health care provider about eating or drinking restrictions. ??? Limit the amount of food you eat by: ? Managing how much you eat at a time (portion size). ? Checking food labels for the serving sizes of food. ? Using a kitchen scale to weigh amounts of food. ??? Saut? or steam food instead of frying it. Cook with water or broth instead of oils or butter. ??? Limit saturated fat and salt (sodium) in your diet. Have no more than 1 tsp (2,400 mg) of sodium a day. If you have heart disease or high blood pressure, use less than ??? tsp (1,500 mg) of sodium a day. Lifestyle ??? Lose weight if needed and as told. Your health care provider can determine how much weight loss is best for you and can help you lose weight safely. ??? If you are overweight or obese, you may be told to lose at least 5?7% of your body weight. ??? Manage blood pressure, cholesterol, and stress. Your health care provider will help determine the best treatment for you. ??? Do not use any products that contain nicotine or tobacco. These products include cigarettes, chewing tobacco, and vaping devices, such as e-cigarettes. If you need help quitting, ask your health care provider. Activity ??? Do physical activity that makes your heart beat faster and makes you sweat (moderate intensity). Do this for at least 30 minutes on at least 5 days of the week, or as much as told by your health care provider. ??? Ask your health care provider what activities are safe for you. A mix of activities may be best, such as walking, swimming, cycling, and strength training. ??? Try to add physical activity into your day. For example: ? Park your car farther away than usual so that you walk more. ? Take a walk during your lunch break. ? Use stairs instead of elevators or escalators. ? Walk or bike to work instead of driving. Alcohol use If you drink alcohol: ??? Limit how much you have to: ? 0?1 drink a day for women who are not . ? 0?2 drinks a day for men. ??? Know how much alcohol is in your drink. In the [place] one drink equals one 12 oz bottle of beer (355 mL), one 5 oz glass of wine (148 mL), or one 1? oz glass of hard liquor (44 mL). General information ??? Talk with your health care provider about your risk factors and how you can reduce your risk for diabetes. ??? Have your blood glucose tested regularly, as told by your health care provider. ??? Get screening tests as told by your health care provider. You may have these regularly, especially if you have certain risk factors for type 2 diabetes. ??? Make an appointment with a registered dietitian. This diet and food and nutrition professor can help you make a healthy eating plan and help you understand portion sizes and food labels. Where to find support ??? Ask your health care provider to recommend a registered dietitian, a certified diabetes care and educational psychology teacher, or a weight loss program. ??? Look for local or online weight loss groups. ??? Join a gym, fitness club, or outdoor activity group, such as a walking club. Where to find more information For help and guidance and to learn more about diabetes and diabetes prevention, visit: ??? [place] Diabetes Association (ADA): www.diabetes.org ??? National [place] of Diabetes and Digestive and Kidney Diseases: www.niddk.nih.gov To learn more about healthy eating, visit: ??? U.S. Department of Agriculture ([place]): www.Modenus.gov ??? Office of Disease Prevention and Health Promotion (ODPHP): health.gov Summary ??? You can delay or prevent type 2 diabetes by eating healthy foods, losing weight if needed, and increasing your physical activity. ??? Talk with your health care provider about your risk factors for type 2 diabetes and how you can reduce your risk. ??? It can be difficult to recognize the signs of type 2 diabetes. The best way to avoid possible damage to your body is to take action to prevent the disease before you develop symptoms. ??? Get screening tests as told by your health care provider. This information is not intended to replace advice given to you by your health care provider. Make sure you discuss any questions you have with your health care provider. Document Revised: 04/30/2021 Document Reviewed: 04/30/2021 [employer] Patient Education ? 2023 [employer].Mental and Behavioral Health Managing Anxiety, Adult After being diagnosed with anxiety, you may be relieved to know why you have felt or behaved a certain way. You may also feel overwhelmed about the treatment ahead and what it will mean for your life. With care and support, you can manage your anxiety. How to manage lifestyle changes Understanding the difference between stress and anxiety Although stress can play a role in anxiety, it is not the same as anxiety. Stress is your body's reaction to life changes and events, both good and bad. Stress is often caused by something external, such as a deadline, test, or competition. It normally goes away after the event has ended and will last just a few hours. But, stress can be ongoing and can lead to more than just stress. Anxiety is caused by something internal, such as imagining a terrible outcome or worrying that something will go wrong that will greatly upset you. Anxiety often does not go away even after the event is over, and it can become a long-term (chronic) worry. Lowering stress and anxiety Talk with your health care provider or a counselor to learn more about lowering anxiety and stress. They may suggest tension-reduction techniques, such as: ??? Music. Spend time creating or listening to music that you enjoy and that inspires you. ??? Mindfulness-based meditation. Practice being aware of your normal breaths while not trying to control your breathing. It can be done while sitting or walking. ??? Centering prayer. Focus on a word, phrase, or sacred image that means something to you and brings you peace. ??? Deep breathing. Expand your stomach and inhale slowly through your nose. Hold your breath for 3?5 seconds. Then breathe out slowly, letting your stomach muscles relax. ??? Self-talk. Learn to notice and spot thought patterns that lead to anxiety reactions. Change those patterns to thoughts that feel peaceful. ??? Muscle relaxation. Take time to tense muscles and then relax them. Choose a tension-reduction technique that fits your lifestyle and personality. These techniques take time and practice. Set aside 5?15 minutes a day to do them. Specialized therapists can offer counseling and training in these techniques. The training to help with anxiety may be covered by some insurance plans. Other things you can do to manage stress and anxiety include: ??? Keeping a stress diary. This can help you learn what triggers your reaction and then learn ways to manage your response. ??? Thinking about how you react to certain situations. You may not be able to control everything, but you can control your response. ??? Making time for activities that help you relax and not feeling guilty about spending your time in this way. ??? Doing visual imagery. This involves imagining or creating mental pictures to help you relax. ??? Practicing yoga. Through yoga poses, you can lower tension and relax. Medicines Medicines for anxiety include: ??? Antidepressant medicines. These are usually prescribed for long-term daily control. ??? Anti-anxiety medicines. These may be added in severe cases, especially when panic attacks occur. When used together, medicines, psychotherapy, and tension-reduction techniques may be the most effective treatment. Relationships Relationships can play a big part in helping you recover. Spend more time connecting with trusted friends and family members. Think about going to couples counseling if you have a partner, taking family education classes, or going to family therapy. Therapy can help you and others better understand your anxiety. How to recognize changes in your anxiety Everyone responds differently to treatment for anxiety. Recovery from anxiety happens when symptoms lessen and stop interfering with your daily life at home or work. This may mean that you will start to: ??? Have better concentration and focus. Worry will interfere less in your daily thinking. ??? Sleep better. ??? Be less irritable. ??? Have more energy. ??? Have improved memory. Try to recognize when your condition is getting worse. Contact your provider if your symptoms interfere with home or work and you feel like your condition is not improving. Follow these instructions at home: Activity ??? Exercise. Adults should: ? Exercise for at least 150 minutes each week. The exercise should increase your heart rate and make you sweat (moderate-intensity exercise). ? Do strengthening exercises at least twice a week. ??? Get the right amount and quality of sleep. Most adults need 7?9 hours of sleep each night. Lifestyle ??? Eat a healthy diet that includes plenty of vegetables, fruits, whole grains, low-fat dairy products, and lean protein. ? Do not eat a lot of foods that are high in fats, added sugars, or salt (sodium). ??? Make choices that simplify your life. ??? Do not use any products that contain nicotine or tobacco. These products include cigarettes, chewing tobacco, and vaping devices, such as e-cigarettes. If you need help quitting, ask your provider. ??? Avoid caffeine, alcohol, and certain kbou-zyy-uysoxpq cold medicines. These may make you feel worse. Ask your pharmacist which medicines to avoid. General instructions ??? Take sywe-llk-dwryafd and prescription medicines only as told by your provider. ??? Keep all follow-up visits. This is to make sure you are managing your anxiety well or if you need more support. Where to find support You can get help and support from: ??? Self-help groups. ??? Online and community organizations. ??? A trusted spiritual leader. ??? Couples counseling. ??? Family education classes. ??? Family therapy. Where to find more information You may find that joining a support group helps you deal with your anxiety. The following sources can help you find counselors or support groups near you: ??? Mental Health [place]: mentalCutting Edge Information.CyberArts ??? Anxiety and Depression Association of [place] (ADAA): adaa.org ??? National [place] on Mental Illness (TRAVIS): travis.org Contact a health care provider if: ??? You have a hard time staying focused or finishing tasks. ??? You spend many hours a day feeling worried about everyday life. ??? You are very tired because you cannot stop worrying. ??? You start to have headaches or often feel tense. ??? You have chronic nausea or diarrhea. Get help right away if: ??? Your heart feels like it is racing. ??? You have shortness of breath. ??? You have thoughts of hurting yourself or others. Get help right away if you feel like you may hurt yourself or others, or have thoughts about taking your own life. Go to your nearest emergency room or: ??? Call 121. ??? Call the National Suicide Prevention Lifeline at or 343. This is open 24 hours a day. ??? Text the Crisis Text Line at 497756. This information is not intended to replace advice given to you by your health care provider. Make sure you discuss any questions you have with your health care provider. Document Revised: 11/12/2022 Document Reviewed: 05/27/2021 Elsevier Patient Education ? 2023 [employer]Managing Depression, Adult Depression is a mental health condition that affects your thoughts, feelings, and actions. Being diagnosed with depression can bring you relief if you did not know why you have felt or behaved a certain way. It could also leave you feeling overwhelmed. Finding ways to manage your symptoms can help you feel more positive about your future. How to manage lifestyle changes Being depressed is difficult. Depression can increase the level of everyday stress. Stress can make depression symptoms worse. You may believe your symptoms cannot be managed or will never improve. However, there are many things you can try to help manage your symptoms. There is hope. Managing stress Stress is your body's reaction to life changes and events, both good and bad. Stress can add to your feelings of depression. Learning to manage your stress can help lessen your feelings of depression. Try some of the following approaches to reducing your stress (stress reduction techniques): ??? Listen to music that you enjoy and that inspires you. ??? Try using a meditation anu or take a meditation class. ??? Develop a practice that helps you connect with your spiritual self. Walk in nature, pray, or go to a place of muslim. ??? Practice deep breathing. To do this, inhale slowly through your nose. Pause at the top of your inhale for a few seconds and then exhale slowly, letting yourself relax. Repeat this three or four times. ??? Practice yoga to help relax and work your muscles. Choose a stress reduction technique that works for you. These techniques take time and practice to develop. Set aside 5?15 minutes a day to do them. Therapists can offer training in these techniques. Do these things to help manage stress: ??? Keep a journal. ??? Know your limits. Set healthy boundaries for yourself and others, such as saying no when you think something is too much. ??? Pay attention to how you react to certain situations. You may not be able to control everything, but you can change your reaction. ??? Add humor to your life by watching funny movies or shows. ??? Make time for activities that you enjoy and that relax you. ??? Spend less time using electronics, especially at night before bed. The light from screens can make your brain think it is time to get up rather than go to bed. Medicines Medicines, such as antidepressants, are often a part of treatment for depression. ??? Talk with your pharmacist or health care provider about all the medicines, supplements, and herbal products that you take, their possible side effects, and what medicines and other products are safe to take together. ??? Make sure to report any side effects you may have to your health care provider. Relationships Your health care provider may suggest family therapy, couples therapy, or individual therapy as part of your treatment. How to recognize changes Everyone responds differently to treatment for depression. As you recover from depression, you may start to: ??? Have more interest in doing activities. ??? Feel more hopeful. ??? Have more energy. ??? Eat a more regular amount of food. ??? Have better mental focus. It is important to recognize if your depression is not getting better or is getting worse. The symptoms you had in the beginning may return, such as: ??? Feeling tired. ??? Eating too much or too little. ??? Sleeping too much or too little. ??? Feeling restless, agitated, or hopeless. ??? Trouble focusing or making decisions. ??? Having unexplained aches and pains. ??? Feeling irritable, angry, or aggressive. If you or your family members notice these symptoms coming back, let your health care provider know right away. Follow these instructions at home: Activity ??? Try to get some form of exercise each day, such as walking. ??? Try yoga, mindfulness, or other stress reduction techniques. ??? Participate in group activities if you are able. Lifestyle ??? Get enough sleep. ??? Cut down on or stop using caffeine, tobacco, alcohol, and any other harmful substances. ??? Eat a healthy diet that includes plenty of vegetables, fruits, whole grains, low-fat dairy products, and lean protein. Limit foods that are high in solid fats, added sugar, or salt (sodium). General instructions ??? Take wexg-hgh-pivjvcx and prescription medicines only as told by your health care provider. ??? Keep all follow-up visits. It is important for your health care provider to check on your mood, behavior, and medicines. Your health care provider may need to make changes to your treatment. Where to find support Talking to others Friends and family members can be sources of support and guidance. Talk to trusted friends or family members about your condition. Explain your symptoms and let them know that you are working with a health care provider to treat your depression. Tell friends and family how they can help. Finances ??? Find mental health providers that fit with your financial situation. ??? Talk with your health care provider if you are worried about access to food, housing, or medicine. ??? Call your insurance company to learn about your co-pays and prescription plan. Where to find more information You can find support in your area from: ??? Anxiety and Depression Association of [place] (ADAA): adaa.org ??? Mental Health [place]: mentalhealthamerica.net ??? National [place] on Mental Illness: travis.org Contact a health care provider if: ??? You stop taking your antidepressant medicines, and you have any of these symptoms: ? Nausea. ? Headache. ? Light-headedness. ? Chills and body aches. ? Not being able to sleep (insomnia). ??? You or your friends and family think your depression is getting worse. Get help right away if: ??? You have thoughts of hurting yourself or others. Get help right away if you feel like you may hurt yourself or others, or have thoughts about taking your own life. Go to your nearest emergency room or: ??? Call 911. ??? Call the National Suicide Prevention Lifeline at or 872. This is open 24 hours a day. ??? Text the Crisis Text Line at 914223. This information is not intended to replace advice given to you by your health care provider. Make sure you discuss any questions you have with your health care provider. Document Revised: 06/11/2022 Document Reviewed: 06/11/2022 [employer] Patient Education ? 2023 [employer].Nutrition DASH Eating Plan DASH stands for Dietary Approaches to Stop Hypertension. The DASH eating plan is a healthy eating plan that has been shown to: ??? Lower high blood pressure (hypertension). ??? Reduce your risk for type 2 diabetes, heart disease, and stroke. ??? Help with weight loss. What are tips for following this plan? Reading food labels ??? Check food labels for the amount of salt (sodium) per serving. Choose foods with less than 5 percent of the Daily Value (DV) of sodium. In general, foods with less than 300 milligrams (mg) of sodium per serving fit into this eating plan. ??? To find whole grains, look for the word whole as the first word in the ingredient list. Shopping ??? Buy products labeled as low-sodium or no salt added. ??? Buy fresh foods. Avoid canned foods and pre-made or frozen meals. Cooking ??? Try not to add salt when you cook. Use salt-free seasonings or herbs instead of table salt or sea salt. Check with your health care provider or pharmacist before using salt substitutes. ??? Do not dudley foods. Cook foods in healthy ways, such as baking, boiling, grilling, roasting, or broiling. ??? Cook using oils that are good for your heart. These include olive, canola, avocado, soybean, and sunflower oil. Meal planning ??? Eat a balanced diet. This should include: ? 4 or more servings of fruits and 4 or more servings of vegetables each day. Try to fill half of your plate with fruits and vegetables. ? 6?8 servings of whole grains each day. ? 6 or less servings of lean meat, poultry, or fish each day. 1 oz is 1 serving. A 3 oz (85 g) serving of meat is about the same size as the palm of your hand. One egg is 1 oz (28 g). ? 2?3 servings of low-fat dairy each day. One serving is 1 cup (237 mL). ? 1 serving of nuts, seeds, or beans 5 times each week. ? 2?3 servings of heart-healthy fats. Healthy fats called omega-3 fatty acids are found in foods such as walnuts, flaxseeds, fortified milks, and eggs. These fats are also found in cold-water fish, such as sardines, salmon, and mackerel. ??? Limit how much you eat of: ? Canned or prepackaged foods. ? Food that is high in trans fat, such as fried foods. ? Food that is high in saturated fat, such as fatty meat. ? Desserts and other sweets, sugary drinks, and other foods with added sugar. ? Full-fat dairy products. ??? Do not salt foods before eating. ??? Do not eat more than 4 egg yolks a week. ??? Try to eat at least 2 vegetarian meals a week. ??? Eat more home-cooked food and less restaurant, buffet, and fast food. Lifestyle ??? When eating at a restaurant, ask if your food can be made with less salt or no salt. ??? If you drink alcohol: ? Limit how much you have to: ? 0?1 drink a day if you are female. ? 0?2 drinks a day if you are male. ? Know how much alcohol is in your drink. In the [place] one drink is one 12 oz bottle of beer (355 mL), one 5 oz glass of wine (148 mL), or one 1? oz glass of hard liquor (44 mL). General information ??? Avoid eating more than 2,300 mg of salt a day. If you have hypertension, you may need to reduce your sodium intake to 1,500 mg a day. ??? Work with your provider to stay at a healthy body weight or lose weight. Ask what the best weight range is for you. ??? On most days of the week, get at least 30 minutes of exercise that causes your heart to beat faster. This may include walking, swimming, or biking. ??? Work with your provider or dietitian to adjust your eating plan to meet your specific calorie needs. What foods should I eat? Fruits All fresh, dried, or frozen fruit. Canned fruits that are in their natural juice and do not have sugar added to them. Vegetables Fresh or frozen vegetables that are raw, steamed, roasted, or grilled. Low- sodium or reduced-sodium tomato and vegetable juice. Low-sodium or reduced-sodium tomato sauce and tomato paste. Low-sodium or reduced-sodium canned vegetables. Grains Whole-grain or whole-wheat bread. Whole-grain or whole-wheat pasta. Brown rice. Oatmeal. Quinoa. Bulgur. Whole-grain and low-sodium cereals. Dia bread. Low- fat, low-sodium crackers. Whole-wheat flour tortillas. Meats and other proteins Skinless chicken or turkey. Ground chicken or turkey. Pork with fat trimmed off. Fish and seafood. Egg whites. Dried beans, peas, or lentils. Unsalted nuts, nut butters, and seeds. Unsalted canned beans. Lean cuts of beef with fat trimmed off. Low- sodium, lean precooked or cured meat, such as sausages or meat loaves. Dairy Low-fat (1%) or fat-free (skim) milk. Reduced-fat, low-fat, or fat-free cheeses. Nonfat, low-sodium ricotta or cottage cheese. Low-fat or nonfat yogurt. Low-fat, low-sodium cheese. Fats and oils Soft margarine without trans fats. Vegetable oil. Reduced-fat, low-fat, or light mayonnaise and salad dressings (reduced-sodium). Canola, safflower, olive, avocado, soybean, and sunflower oils. Avocado. Seasonings and condiments Herbs. Spices. Seasoning mixes without salt. Other foods Unsalted popcorn and pretzels. Fat-free sweets. The items listed above may not be all the foods and drinks you can have. Talk to a dietitian to learn more. What foods should I avoid? Fruits Canned fruit in a light or heavy syrup. Fried fruit. Fruit in cream or butter sauce. Vegetables Creamed or fried vegetables. Vegetables in a cheese sauce. Regular canned vegetables that are not marked as low-sodium or reduced-sodium. Regular canned tomato sauce and paste that are not marked as low-sodium or reduced-sodium. Regular tomato and vegetable juices that are not marked as low-sodium or reduced-sodium. Pickles. Olives. Grains Baked goods made with fat, such as croissants, muffins, or some breads. Dry pasta or rice meal packs. Meats and other proteins Fatty cuts of meat. Ribs. Fried meat. Bates. Bologna, salami, and other precooked or cured meats, such as sausages or meat loaves, that are not lean and low in sodium. Fat from the back of a pig (fatback). Bratwurst. Salted nuts and seeds. Canned beans with added salt. Canned or smoked fish. Whole eggs or egg yolks. Chicken or turkey with skin. Dairy Whole or 2% milk, cream, and gkdh-gkg-bxcx. Whole or full-fat cream cheese. Whole-fat or sweetened yogurt. Full-fat cheese. Nondairy creamers. Whipped toppings. Processed cheese and cheese spreads. Fats and oils Butter. Stick margarine. Lard. Shortening. Ghee. Bates fat. Tropical oils, such as coconut, palm kernel, or palm oil. Seasonings and condiments Onion salt, garlic salt, seasoned salt, table salt, and sea salt. Worcestershire sauce. Tartar sauce. Barbecue sauce. Teriyaki sauce. Soy sauce, including reduced-sodium soy sauce. Steak sauce. Canned and packaged gravies. Fish sauce. Oyster sauce. Cocktail sauce. Store-bought horseradish. Ketchup. Mustard. Meat flavorings and tenderizers. Bouillon cubes. Hot sauces. Pre-made or packaged marinades. Pre-made or packaged taco seasonings. Relishes. Regular salad dressings. Other foods Salted popcorn and pretzels. The items listed above may not be all the foods and drinks you should avoid. Talk to a dietitian to learn more. Where to find more information ??? National Heart, Lung, and Blood [place] (NHLBI): nhlbi.nih.gov ??? [place] Heart Association (AHA): heart.org ??? Academy of Nutrition and Dietetics: eatright.org ??? National Kidney Foundation (NKF): kidney.org This information is not intended to replace advice given to you by your health care provider. Make sure you discuss any questions you have with your health care provider. Document Revised: 02/20/2023 Document Reviewed: 02/20/2023 [employer] Patient Education ? 2023 [employer] ALLERGIES DATE TYPE / CODE NAME / CODE REACTION SEVERITY SOURCE [id number](SNOME D CT) Latex [id number] [facility] /[id number](SNOME D CT) sulfa drugs hyper [facility] ENCOUNTERS ADMIT/DISCHARGE ACCOUNT NUMBER ADMITTING ENCOUNTER CLASS LOCATION SOURCE 11/02/2024/11/03/19 [id number] Ambulatory Building:[facility] 10/11/2024/10/12/19 [id number] Ambulatory Building:[facility] 10/11/2024/10/12/19 [id number] Ambulatory Building:[facility] 08/31/2024 [id number] [place] [facility] [place] [place] [facility] 08/26/2024/08/27/19 [id number] Ambulatory [facility]: [id number] 75 [facility] 06/04/2024/06/05/19 [id number] Ambulatory [facility] 06/01/2024/06/02/19 [id number] Ambulatory FT [facility]FT [facility] 05/31/2024/06/01/19 [id number] Ambulatory [facility]: [id number] 85 [facility] 04/06/2024/04/06/19 25 [id number] Ambulatory [facility]: [id number] 85 [facility] 03/04/2024/03/04/19 25 [id number] Ambulatory [facility]: [id number] 83 [facility] 02/20/2024 [id number] Shailesh Fajardo Ambulatory [facility]:FT LAB [facility] 02/20/2024/02/19/19 25 [id number] Shailesh Fajardo Ambulatory [facility]:FT LAB [facility] 02/20/2024/02/19/19 25 [id number] Ambulatory [facility]: [id number] 89 [facility] 02/16/2024/02/16/20 24 [id number] Ambulatory [facility]FT [facility] 12/18/2023/12/18/19 24 [id number] Ambulatory Building:FB ORTHO [facility] EPIC PAYERS ENCOUNTER GUARANTOR PAYER SUBSCRIBER SOURCE 11/02/2024 USMAN Rojas MackSAULOB: [address] [address]Wcr: (HP) Primary Insurance:UNITED HEALTHCARE MEDICAREPoly Number: [id number] Date:2024-02-18 USMAN Bob GironSAULOB: [id number] [address] [address] [facility] EPIC 10/11/2024 USMAN Bob ZhaoTREVORB: [address] [address]Yim: (HP) Primary Insurance:UNITED HEALTHCARE MEDICAREPolicy Number: [id number] Date:2024-02-18 USMAN Bob ELDERREMYB: [id number] [address] [address] [facility] EPIC 10/11/2024 USMAN TRUJLILOB: [address] [address]Lff: (HP) Primary Insurance:UNITED HEALTHCARE MEDICAREPolicy Number: [id number] Date:2024-02-18 USMAN Bob ELDERREMYB: [id number] [address] [address] [facility] EPIC 08/31/2024 USMAN JOHNSONB: [facility] 183Tel: ~([phone] (HP) Primary Insurance:[facility] Number: [id number] Date:2022-08-30 USMAN ROSS [facility] 08/26/2024 USMAN JOHNSONB: [id number] [facility] 183Tel: ~([phone] (HP) Primary Insurance:[facility] Number: [id number] Date:2022-08-30 USMAN ROSS [facility] 06/04/2024 USMAN LINGDOB: [id number] [facility] [address] 183Tel: ~[phone] (HP) [facility] Number: [id number] Date:2022-08-30 USMAN ROSS [facility] 06/01/2024 USMAN LINGDOB: [id number] [facility] [address] 183Tel: ~([phone] (HP) [facility] Insurance:[facility] Number: [id number] Date:2022-08-30 USMAN ROSS [facility] 05/31/2024 USMAN LINGDOB: [id number] [facility] [address] 183Tel: ~([phone] (HP) [facility] Insurance:[facility] Number: [id number] Date:2022-08-30 USMAN ROSS [facility] 04/06/2024 USMAN LINGDOB: [id number] [facility] [address] 183Tel: ~[phone] (HP) [facility] Insurance:[facility] Number: [id number] Date:2022-08-30 USMAN ROSS [facility] 03/04/2024 USMAN LINGDOB: [id number] [facility] [address] 183Tel: ~[phone] (HP) Primary Insurance:[facility] Number: [id number] Date:2022-08-30 USMAN ROSS [facility] 02/20/2024 USMAN LINGDOB: [id number] [facility] [address] 183Tel: ~([phone] (HP) Primary Insurance:[facility] Number: [id number] Date:2024-02-20 USMAN ROSS [facility] 02/20/2024 USMAN Rojas ODCHICHIB: [facility] [address] 183Tel: ~[phone] (HP) [facility] [id number] Date:2022-08-30 USMAN ROSS [facility] 02/16/2024 USMAN Rojas ELIZABETHB: [facility] [address] 183Tel: ~[phone] (HP) [facility] Number: [id number] Date:2022-08-30 USMAN ROSS [facility] 12/18/2023 USMAN Rojas CASSANDRAB: [id number] [address] [address]Sus: (HP) Primary Insurance:[employer] HE[employer]ARE MEDICAREPolicy Number: [id number] Date:2022-08-17 USMAN Rojas CASSANDRAB: [id number] [address] [address] [facility] EPIC
--- NOTE | 2024-11-17 10:45 | PM.CN ---
Consult Note: HPI Data of Consult Patient: known to practice within the last 3 years Consult date: 11/17/24 Requesting Physician: Greta Santana NP Primary Care Provider: CHRISTI ZARCO Consult Narrative Reason for consult: right hip and leg pain Narrative: Lisa Stephen a pleasant 79 year old with chronic pain presents for evaluation. Pt has been following with [facility] orthopedics for right hip pain and OA, has failed to benefit from right GTB injection and right hip injection. Pt does have a hx of multilevel lumbar stenosis and DDD. pt has failed to benefit from > 6 weeks of HEP/PT, heat, ice, tylenol, nsaids. Pain today up to 9/10 with standing, activity, and transitioning. notes improvement in pain with sitting. cc:: CC: Greta Santana NP Review of Systems ROS Musculoskeletal Reports: extremity pain and joint pain PFSH PFSH Medical History UTI (urinary tract infection) ?N39.0 - Urinary tract infection, site not specified (ICD-10) Urinary urgency ?R39.15 - Urgency of urination (ICD-10) Urge incontinence ?N39.41 - Urge incontinence (ICD-10) Straining to void ?R39.16 - Straining to void (ICD-10) Microscopic hematuria ?R31.29 - Other microscopic hematuria (ICD-10) Hypertension ?I10 - Essential (primary) hypertension (ICD-10) Chronic urethral stricture History of frequent headaches Depression ?F32.A - Depression, unspecified (ICD-10) Surgical History Hx of tonsillectomy ?Z90.89 - Acquired absence of other organs (ICD-10) H/O: hysterectomy ?Z90.710 - Acquired absence of both cervix and uterus (ICD-10) H/O colonoscopy ?Z98.890 - Other specified postprocedural states (ICD-10) History of appendectomy ?Z90.49 - Acquired absence of other specified parts of digestive tract (ICD-10) S/P cystourethroscopy with dilation of urethral stricture ?Z98.890 - Other specified postprocedural states (ICD-10) Family History Other Family history of CHF (congestive heart failure) Family history of cancer Family history of diabetes mellitus Family history of hypertension Social History Within the past year, how often did you have a drink containing alcohol: 2-4 times a month Within the past year, how many standard drinks containing alcohol did you have on a typical day: 1 or 2 Total score: 0 Score interpretation: A score less than 3 is consistent with normal alcohol consumption. Smoking status: Never smoker Second hand tobacco smoke exposure: No Non-prescribed substance use: denies use Highest level of school completed/degree received: high school graduate Meds Home Medications and Allergies Home Medications ?Medication ?Instructions ?Recorded ?Confirmed ?Type hydrochlorothiazide 25 mg tablet 25 mg PO DAILY 10/07/22 11/11/22 History latanoprost 0.005 % eye drops 1 drp ophthalmic (eye) QPM 10/07/22 11/11/22 History prednisolone acetate 1 % eye 1 drp ophthalmic (eye) BID 10/07/22 11/11/22 History drops,suspension venlafaxine 75 mg capsule,extended 75 mg PO DAILY 10/07/22 11/11/22 History release 24 hr verapamil 180 mg 24 hr 180 mg PO DAILY 10/07/22 11/11/22 History capsule,extended release estradiol 0.01% (0.1 mg/gram) 1 g vaginal DAILY 11/08/22 11/11/22 History vaginal cream Allergies Allergy/AdvReac Type Severity Reaction Status Date / Time latex AdvReac Mild Rash Verified 11/08/22 14:02 Sulfa (Sulfonamide AdvReac Mild HYPERACTIVI Verified 11/08/22 14:02 Antibiotics) TY Exam Constitutional Documenting provider has reviewed patient's vital signs: yes Common normals: no apparent distress, oriented x3, healthy appearing, alert and well nourished General appearance: cooperative HENMT Common normals: normocephalic, hearing grossly normal bilaterally and moist oral mucous membranes Head and scalp: normocephalic Eye Common normals: PERRL Pupil: PERRL Neck & C-Spine Common normals: full ROM General: normal visual inspection Chest Common normals: inspection of chest normal Respiratory Common normals: normal respiratory effort, no retractions and no use of accessory muscles Back & Pelvis Lumbar spine/lower back: ROM not limited, no pain with ROM and no lumbar spinal tenderness Sacroiliac joints: SI joint(s) abnormal Other: right sij positive teja(patricks), gaenslens, thigh thrust, compression test significant pain with palpation of iliac crest moderate tenderness over right GTB and IT band negative facet loading on exam Extremity Right lower extremity: hip joint Other: severe pain with internal and external rotation of right hip Neuro Common normals: oriented x3 Sensorium/orientation: alert Psych Common normals: mental status grossly normal, thought process normal, cooperative, affect normal, speech normal and activity/motor behavior normal Speech: normal speech Thought process: normal thought process Results Additional Findings Additional findings: If on a controlled substance or opioids, I have checked an [place] report on this patient and there are no aberrancies noted in the prescribing history.??If on a controlled substance or opioid a drug screen was completed and reviewed within the last year, and if there has not been a drug screen completed we ordered one today to monitor higher risk, state monitored pain medication use. As part of providing excellent, safe, comprehensive care, the following was completed at our patient's visit: 1. A medication reconciliation and review to ensure accurate knowledge of current/active medications, including asking our patients to inform us about any kdbk-sbg-ihurtth medications or herbal remedies/nutritional supplements/alternative remedies. 2. A review to specifically ensure our patients have had annual screening for screening for depression, screening for tobacco use, and screening for unhealthy alcohol use. For concerning screenings had a discussion with the patient, provided patient education, and recommended follow-up with primary care provider when appropriate. If patient noted with a risk of falling, they received education on strength, gait, and balance training to prevent future risk of falling. Portions of this note may have been carried over from the previous visit and updated as appropriate. Please note this office utilizes paper charting in addition to the electronic medical record. A list of current medications, vitals, and PMH is available there as the clinical staff outside of myself do not have access to [facility] charting during the clinic day operations. As part of providing quality comprehensive care the current medications, vitals, and PMH were reviewed in the paper chart. Assessment and Plan Assessment and Plan (1) Sacroiliitis: (2) Lumbar stenosis with neurogenic claudication: (3) Iliotibial band tendonitis of right side: (4) Greater trochanteric bursitis of right hip: Plan The patient has had over 3 months of moderate to severe right hip and right thigh pain with functional impairment and inadequate response to conservative care including NSAIDS (unless there are contraindication such as concurrent blood thinners), multiple oral or topical pain medications, and home exercise program/physical therapy.? Patient has completed >6 weeks of guided home exercise program and/or formal physical therapy program without relief of their symptoms.? The Oswestry Disability Index was completed, and the patient scored a 28%.? physical exam completed, pt noting significant right SIJ dysfunction. At this time I would like to trial a right SIJ injection under fluoroscopy prior to lumbar TFESI based on physical exam. can consider right L2,3 L3,4 TFESI if pt fails to benefit. f/u 2 weeks after injection
== END 2024-11-17 10:20 | disposition home or self-care (01) ==
LOC: PM 10:20
PROVIDERS: PCP Family Medicine; Visit Provider Nurse Practitioner
DX: M46.1 Sacroiliitis, not elsewhere classified (principal); M48.062 Spinal stenosis, lumbar region with neurogenic claudication; M76.31 Iliotibial band syndrome, right leg; M70.61 Trochanteric bursitis, right hip
CPT/HCPCS: G0463